=== PATIENT | female | born 1970 | race Caucasian/White ===

== ENCOUNTER 2022-02-25 15:24 | Outpatient (CLI) | payer OTHER, SELFPAY ==
[2022-02-25 14:21] LABS: Albumin* 4.4 g/dL (3.3-5.0)
[2022-02-25 14:22] LABS: Chloride* 105 mmol/L (96-114); Potassium* 4.4 mmol/L (3.6-5.1); Sodium* 139 mmol/L (135-149)
[2022-02-25 14:24] LABS: Bilirubin Total* 0.4 mg/dL (0.1-1.5); Carbon Dioxide* 24 mmol/L (20-32); Cholesterol* 158 mg/dL (90-199); Creatinine* 0.8 mg/dL (0.5-1.5); Estimated Glomerular Filt Rate 88 ml/min
[2022-02-25 14:25] LABS: Alanine Aminotransferase* 24 U/L (4-35); Alkaline Phosphatase* 92 U/L (40-150); Aspartate Amino Transferase* 25 U/L (12-35); Blood Urea Nitrogen* 16 mg/dL (7-30); Calcium* 9.2 mg/dL (8.4-10.6); Glucose* 98 mg/dL (60-115); HDL Cholesterol* 51 mg/dL (>=50); LDL Cholesterol Calculated 79 mg/dL (<100); Triglycerides* 141 mg/dL (40-149)
== END 2022-02-25 15:25 | disposition home or self-care (01) ==
PROVIDERS: Visit Provider Physician Assistant Medical
DX: E78.5 Hyperlipidemia, unspecified (principal)
CPT/HCPCS: 80053; 80061

== ENCOUNTER 2022-04-04 09:03 | Outpatient (CLI) | payer OTHER, SELFPAY | END 2022-04-04 09:04 | disposition home or self-care (01) | PROVIDERS: Visit Provider Family Medicine | DX: N39.0 Urinary tract infection, site not specified (principal) | CPT/HCPCS: 87086; 87186 ==

== ENCOUNTER 2022-05-31 02:31 | Emergency (ER) | payer OTHER, SELFPAY ==
[2022-05-31] VITALS (7 sets, daily range): BP systolic 145–155; BP diastolic 78–94; PULSE 52–81; RESP 16–22; TEMP 36.8; O2SAT 97–100; BMI 28.1
--- NOTE | 2022-05-31 02:50 | CRLHL7_ITS ---
Patient: NELLA VALLE Facility:?[facility] Patient ID:?[id number] Site Patient ID:?[id number]. Site :?[id number] Study:?CT-Chest/Abd/Pelvis W/ and W/O Cont dissection-05/31/2022 3:19:44 AM Ordering Physician:Eyal Juarez Final Report: INDICATION: Chest pain. Evaluate for dissection. COMPARISON: None available. TECHNIQUE: Initial examination is a noncontrast CT of the chest producing 3 millimeter thick axial sections. CT angiography of the chest, abdomen, and pelvis was performed with the uneventful intravenous administration of 95 cc of Isovue 370 while 1.5 mm thick axial sections were obtained from above the lungs through the pubic symphysis. Please note that all CT scans at this facility use dose modulation, iterative reconstruction, and/or weight-based dosing when appropriate to reduce radiation dose to as low as reasonably achievable. FINDINGS: : The thoracic aorta is normal in caliber with no sign of dilatation or dissection. There is no sign of periaortic hematoma. In the chest, there is a small calcified granuloma in the lateral right lower lobe. The lungs are otherwise clear. There is excellent enhancement of the pulmonary arteries with no sign of pulmonary embolism. There is no sign of mediastinal or hilar mass or adenopathy. There is no sign of supraclavicular or axillary mass or adenopathy. The heart is normal in appearance for the patient`s age. There is age appropriate appearance of the ascending great vessels. The abdominal aorta is normal in caliber with no sign of aneurysmal dilatation or dissection. The celiac axis, SMA, solitary bilateral renal arteries, and LAUREN are widely patent. There is no sign of periaortic hematoma. In the abdomen, the liver, spleen, pancreas, and adrenals are normal in appearance. The kidneys are normal in appearance. The gallbladder is normal in appearance. There is no sign of retroperitoneal mass or adenopathy. There is a small hiatal hernia. The rest of the stomach, loops of small bowel, and colon in the abdomen are otherwise normal in appearance. In the pelvis, the appendix is normal in appearance with no sign of inflammatory process. The loops of small bowel, colon, and rectum in the pelvis are normal in appearance. The uterus and adnexal regions are normal in appearance. The urinary bladder is normal in appearance. There is no sign of pelvic or inguinal mass or adenopathy. There is no sign of free fluid or free air in the abdomen or pelvis. The osseous structures are normal in appearance for the patient`s age. IMPRESSION: Normal CT angiogram of the thoracic and abdominal aorta. CT of the chest shows no sign of pulmonary embolism. Previous granulomatous disease. CT of the abdomen shows a small hiatal hernia. Normal CT of the pelvis with contrast. Please note that all CT scans at this facility use dose modulation, iterative reconstruction, and/or weight-based dosing when appropriate to reduce radiation dose to as low as reasonably achievable. For Patients: As a result of the Century Cures Act, medical imaging exams and procedure reports are released immediately into your electronic medical record. You may view this report before your referring provider. If you have questions, please contact your health care provider. This noncontrast CT of the chest is interpreted as part of the accompanying CT angiogram of the chest, abdomen, and pelvis. Please note that all CT scans at this facility use dose modulation, iterative reconstruction, and/or weight-based dosing when appropriate to reduce radiation dose to as low as reasonably achievable. Dictated by Byron Oglesby MD @ 05/31/2022 3:52:59 AM (Electronically Signed)
--- NOTE | 2022-05-31 02:58 | ED_ITS ---
HPI - General Adult General Date Seen: 05/31/22 Chief complaint: Shortness of Breath/Dyspnea Stated complaint: Hard time breathing/chest pain/vomitting Time Seen by Provider: 05/31/22 02:34 Source: patient and family Mode of arrival: ambulatory Limitations: no limitations History of Present Illness HPI narrative: Patient is a 51-year-old female who had a frozen pizza for dinner tonight. She went to sleep and awoke suddenly at 11:00 p.m. with pain in her epigastric area that radiates through into her back. She does not drink any alcohol. She did not have a sensation of acid reflux. Pain became so severe that she was having some trouble breathing. She tried Tums at home but vomited them up. She is still feeling nauseated. No hematemesis. No diarrhea. No one else at home has been ill. No fevers or chills. She has never had pain like this previously. Related Data Home Medications Medication Instructions Recorded Confirmed fruits and vegies supplement 2 tab PO DAILY 04/04/22 05/31/22 Previous Rx's Medication Instructions Recorded atorvastatin 20 mg tablet 20 mg PO QPM #90 tabs 02/26/22 topiramate 100 mg tablet 100 mg PO QDAY #90 tabs 03/12/22 triamcinolone acetonide 0.1 % 1 applic topical BID #30 grams 03/12/22 topical cream Allergies Allergy/AdvReac Type Severity Reaction Status Date / Time amoxicillin Allergy Intermediate Hives Verified 05/31/22 03:24 Review of Systems Narrative: Review of systems is outlined above otherwise noted to be negative. [facility] Medical History (Updated 05/31/22 @ 04:23 by Larry Bender MD) COVID-19 virus infection Depression Diarrhea Hyperlipidemia Left shoulder pain Obesity Prediabetes Vitamin D deficiency Surgical History No history of previous surgery Family History (Updated 03/07/22 @ 22:33 by Hailey Guzman) Father Diabetes Social History (Updated 03/07/22 @ 22:34 by Hailey Guzman) Narrative: Consumes alcohol occasionally Does not use illicit drugs Has 1 child- Daughter, Meaghan Nonsmoker Smoking Status: Never smoker Second hand tobacco smoke exposure: No How often do you have a drink containing alcohol: never How often do you have six or more drinks on one occasion: Never AUDIT-C Alcohol total score: 0 Non-prescribed substance use: denies use Exam Narrative: Exam Narrative: Vitals noted. HEENT: Conjunctiva clear. Neck is supple without adenopathy, thyromegaly, carotid bruit. Lungs: Clear to auscultation in all orozco. No wheezes, rales, rhonchi. Heart: Regular rate and rhythm without murmur. Abdomen: She has epigastric tenderness. No guarding, rigidity, rebound. Bowel sounds are normal. No palpable masses. Extremities: No cyanosis or edema. Good distal pulses. Skin: No abnormalities noted of the exposed skin. Neurologic: Awake, alert, fully oriented. Neurologic exam is nonfocal. Const: Vital Signs, click to edit/add: Vital Signs - 24 hr 05/31/22 03:04 05/31/22 02:40 05/31/22 03:01 Temperature 98.2 F Pulse Rate 81 Pulse Rate [Right Pulse Oximeter] 81 Respiratory Rate 22 18 Blood Pressure 149/84 H Blood Pressure [Le ft Upper Arm] 155/86 H Pulse Oximetry 99 100 Oxygen Delivery Me thod Room Air 05/31/22 03:21 Temperature Pulse Rate 59 L Pulse Rate [Right Pulse Oximeter] Respiratory Rate 18 Blood Pressure 149/94 H Blood Pressure [Le ft Upper Arm] Pulse Oximetry 100 Oxygen Delivery Me thod Course Course Hospital Course: Patient is seen and examined. She is initially in severe pain with diaphoresis. EKG shows normal sinus rhythm with a rate of 63. No acute ST or T-wave changes. A stat CT angiogram to rule out aortic dissection is ordered. Labs ordered. She is given fentanyl 50 mcg IV and Zofran 4 mg IV. She did have an episode of vomiting. Reevaluation(s) Reevaluation #1: She received little improvement with the fentanyl and was then given a GI cocktail with good improvement of her symptoms. She continues to have some nausea. Her labs are all unremarkable. Her imaging is also unremarkable. She is given a dose of Compazine 10 mg IV. Reevaluation #2: Patient is comfortable with discharge. Discussed the possibility of gallstones verses indigestion verses acid reflux. Vital Signs Vital signs: Initial Vital Signs Temperature 98.2 F 05/31/22 02:40 Temperature Source Temporal Artery Scan 05/31/22 02:40 Pulse Rate 81 05/31/22 02:40 Pulse Rhythm 05/31/22 02:40 Pulse Strength 3+ Normal 05/31/22 02:40 Respiratory Rate 22 05/31/22 02:40 Blood Pressure 155/86 H 05/31/22 02:40 Blood Pressure Mean 109 05/31/22 02:40 Blood Pressure Position Sitting 05/31/22 02:40 Pulse Oximetry 100 05/31/22 02:40 Oxygen Delivery Method 05/31/22 02:40 Vital Signs Temperature 98.2 F 05/31/22 02:40 Pulse Rate 81 05/31/22 02:40 Respiratory Rate 22 05/31/22 02:40 Blood Pressure 155/86 H 05/31/22 02:40 Pulse Oximetry 100 05/31/22 02:40 Oxygen Delivery Method 05/31/22 02:40 Temperature 98.2 F 05/31/22 02:40 Pulse Rate 59 L 05/31/22 03:21 Respiratory Rate 18 05/31/22 03:21 Blood Pressure 149/94 H 05/31/22 03:21 Pulse Oximetry 100 05/31/22 03:21 Oxygen Delivery Method 05/31/22 02:40 Medical Decision Making Lab Data Labs: Lab Results 05/31/22 05/31/22 05/31/22 Range/Units 02:35 02:35 02:35 WBC 9.77 (4.50-11.00) K/uL RBC 4.80 (4.00-5.20) m/uL Hgb 14.3 (12.0-16.0) gm/dL Hct 43.3 (33.0-51.0) % MCV 90 (80-100) fL MCH 30 (26-34) pg MCHC 33 (32-36) gm/dL RDW Coeff of Rand 11.6 (11.5-15.5) % Plt Count 276 (140-440) K/uL Neut % (Auto) 72.5 H (42.0-72.0) % Lymph % (Auto) 19.4 L (20-44) % [place] % (Auto) 6.8 (0.0-11.0) % Eos % (Auto) 0.8 (0.0-7.0) % Baso % (Auto) 0.4 (0.0-3.0) % Neut # (Auto) 7.10 H (1.7-7.0) K/uL Lymph # (Auto) 1.90 (0.90-2.90) K/uL [place] # (Auto) 0.70 (0.00-0.90) K/UL Eos # (Auto) 0.08 (0.00-0.50) K/uL Baso # (Auto) 0.04 (0.00-0.30) K/uL D-Dimer Quant (PE/DVT) 0.53 H (0.00-0.50) ug/ml Sodium 141 (135-149) mmol/L Potassium 3.8 (3.6-5.1) mmol/L Chloride 107 (96-114) mmol/L Carbon Dioxide 23 (20-32) mmol/L BUN 22 (7-30) mg/dL Creatinine 0.8 (0.5-1.5) mg/dL Estimated Creat Clear 82.04 Estimated GFR 88 ml/min Glucose 167 H (60-115) mg/dL Calcium 9.7 (8.4-10.6) mg/dL Total Bilirubin 0.4 (0.1-1.5) mg/dL Direct Bilirubin 0.2 (0.0-0.5) mg/dL AST 34 (12-35) U/L ALT 38 H (4-35) U/L Alkaline Phosphatase 112 (40-150) U/L Troponin I < 0.01 L (0.01-0.04) ng/mL Total Protein 7.7 (6.0-8.3) g/dL Albumin 4.7 (3.3-5.0) g/dL Lipase (23-300) U/L 05/31/22 Range/Units 02:35 WBC (4.50-11.00) K/uL RBC (4.00-5.20) m/uL Hgb (12.0-16.0) gm/dL Hct (33.0-51.0) % MCV (80-100) fL MCH (26-34) pg MCHC (32-36) gm/dL RDW Coeff of Rand (11.5-15.5) % Plt Count (140-440) K/uL Neut % (Auto) (42.0-72.0) % Lymph % (Auto) (20-44) % [place] % (Auto) (0.0-11.0) % Eos % (Auto) (0.0-7.0) % Baso % (Auto) (0.0-3.0) % Neut # (Auto) (1.7-7.0) K/uL Lymph # (Auto) (0.90-2.90) K/uL [place] # (Auto) (0.00-0.90) K/UL Eos # (Auto) (0.00-0.50) K/uL Baso # (Auto) (0.00-0.30) K/uL D-Dimer Quant (PE/DVT) (0.00-0.50) ug/ml Sodium (135-149) mmol/L Potassium (3.6-5.1) mmol/L Chloride (96-114) mmol/L Carbon Dioxide (20-32) mmol/L BUN (7-30) mg/dL Creatinine (0.5-1.5) mg/dL Estimated Creat Clear Estimated GFR ml/min Glucose (60-115) mg/dL Calcium (8.4-10.6) mg/dL Total Bilirubin (0.1-1.5) mg/dL Direct Bilirubin (0.0-0.5) mg/dL AST (12-35) U/L ALT (4-35) U/L Alkaline Phosphatase (40-150) U/L Troponin I (0.01-0.04) ng/mL Total Protein (6.0-8.3) g/dL Albumin (3.3-5.0) g/dL Lipase 171 (23-300) U/L Discharge Plan Discharge Clinical Impression: Acute epigastric pain Patient Disposition: Home, Self-Care Condition: Improved Additional Instructions: [place] diet, push fluids. Tylenol for pain. OTC Pepcid or Prilosec if you are having acid reflux. Follow-up with your PCP next week to discuss further testing such as a gallbladder ultrasound. Prescriptions: No Action fruits and vegies supplement 2 tab PO DAILY topiramate 100 mg tablet 100 mg PO QDAY Qty: 90 3RF triamcinolone acetonide 0.1 % cream 1 applic topical BID Qty: 30 0RF atorvastatin 20 mg tablet 20 mg PO QPM Qty: 90 3RF Follow Up/Referrals: Provider,Not a Local [Referring] - Blaine Sharp PA-C [Primary Care Provider] - Stand Alone Forms: MyHealth Info Instructions
[2022-05-31] MEDS: fentaNYL 100 MCG/2 ML inj 50 MCG IVP (03:00)
[2022-05-31] MEDS: ONDANSETRON 2 MG/ML inj 4 MG IVP (03:00)
[2022-05-31] MEDS: 0.9 % SODIUM CHLORIDE 1000 ml 1,000 ML IV (03:06)
[2022-05-31 03:11] LABS: Basophils Absolute Auto 0.04 K/uL (0.00-0.30); Basophils Percent Auto 0.4 % (0.0-3.0); Eosinophils Absolute Auto 0.08 K/uL (0.00-0.50); Eosinophils Percent Auto 0.8 % (0.0-7.0); Hematocrit 43.3 % (33.0-51.0); Hemoglobin* 14.3 gm/dL (12.0-16.0); Immature Granulocytes Abs Auto 0.01 K/uL (0.00-0.30); Immature Granulocytes Pct Auto 0.1 %; Lymphocytes Percent Auto 19.4 % (20-44); Mean Corpuscular HGB Conc 33 gm/dL (32-36); Mean Corpuscular Hemoglobin 30 pg (26-34); Mean Corpuscular Volume 90 fL (80-100); Monocytes Percent Auto 6.8 % (0.0-11.0); Neutrophils Percent Auto 72.5 % (42.0-72.0); Platelet Count* 276 K/uL (140-440); RDW Coefficient of Variation % 11.6 % (11.5-15.5); White Blood Count* 9.77 K/uL (4.50-11.00)
[2022-05-31 03:13] LABS: Slide Review Reflex No
[2022-05-31 03:17] LABS: Albumin* 4.7 g/dL (3.3-5.0); Chloride* 107 mmol/L (96-114)
[2022-05-31 03:18] LABS: Potassium* 3.8 mmol/L (3.6-5.1); Sodium* 141 mmol/L (135-149)
[2022-05-31 03:19] LABS: Lipase* 171 U/L (23-300)
[2022-05-31 03:20] LABS: Alkaline Phosphatase* 112 U/L (40-150); Aspartate Amino Transferase* 34 U/L (12-35); Bilirubin Direct* 0.2 mg/dL (0.0-0.5); Bilirubin Total* 0.4 mg/dL (0.1-1.5); Blood Urea Nitrogen* 22 mg/dL (7-30); Carbon Dioxide* 23 mmol/L (20-32); Creatinine* 0.8 mg/dL (0.5-1.5); Est. Creatinine Clearance* 82.04; Estimated Glomerular Filt Rate 88 ml/min; Total Protein* 7.7 g/dL (6.0-8.3)
[2022-05-31] MEDS: GI COCKTAIL (VISC LIDO/ANTACID) 30 ML PO (03:20)
[2022-05-31 03:21] LABS: Alanine Aminotransferase* 38 U/L (4-35); Calcium* 9.7 mg/dL (8.4-10.6); Glucose* 167 mg/dL (60-115)
[2022-05-31 03:22] LABS: D Dimer Quantitative* 0.53 ug/ml (0.00-0.50)
[2022-05-31 03:33] LABS: Troponin I* < 0.01 ng/mL (0.01-0.04)
[2022-05-31] MEDS: PROCHLORPERAZINE 5 MG/ML VIAL 10 MG IV (04:25)
== END 2022-05-31 04:39 | disposition home or self-care (01) ==
PROVIDERS: Emergency Provider Family Medicine; PCP Physician Assistant Medical
DX: R10.13 Epigastric pain (principal)
CPT/HCPCS: 36415; 71270; 74178; 80048; 80076; 83690; 84484; 85025; 85379; 93005; 94761; 96374; 96375; 99284; 99285; A9270; J0780; J2405; J3010; J7030; Q9967

== ENCOUNTER 2023-01-06 10:14 | Outpatient (CLI) | payer OTHER, SELFPAY ==
--- NOTE | 2023-01-06 10:45 | CRLHL7_ITS ---
For Patients: As a result of the Cures Act, medical imaging exams and procedure reports are released immediately into your electronic medical record. You may view this report before your referring provider. If you have questions, please contact your health care provider. DIGITAL DIAGNOSTIC LEFT MAMMOGRAM USING TOMOSYNTHESIS AND COMPUTER-AIDED DETECTION LEFT BREAST ULTRASOUND CLINICAL HISTORY: LEFT breast pain. COMPARISON: 10/30/2021, 11/05/2022. TECHNIQUE: Digital LEFT mammogram in four projections. Tomosynthesis and CAD utilized. Real-time ultrasound imaging of LEFT breast with imaging documentation. Scanning was performed by both the technologist and the radiologist. BREAST COMPOSITION: The breasts are heterogeneously dense, which may obscure small masses. FINDINGS: 3D CC/MLO LEFT mammogram images submitted. No suspicious masses or architectural distortion. No adenopathy or suspicious calcifications. Targeted sonogram LEFT breast performed in the area of concern 5-6 o`clock 2 cm from the nipple. Normal dense tissue is present. No fibrocystic change or solid mass. IMPRESSION: Normal LEFT breast mammogram images and normal targeted LEFT breast ultrasound. No evidence of malignancy. RECOMMENDATIONS: Annual BILATERAL screening mammography. Results and recommendations discussed with the patient. BI-RADS Category 2: Benign A lay language report of this examination will be provided to the patient. Dictated by Larry Clayton MD @ 01/06/2023 11:59:02 AM /Dictated by: Larry Clayton MD @ 01/06/2023 11:54:00 AM (Electronically Signed)
--- NOTE | 2023-01-06 11:15 | CRLHL7_ITS ---
For Patients: As a result of the Century Cures Act, medical imaging exams and procedure reports are released immediately into your electronic medical record. You may view this report before your referring provider. If you have questions, please contact your health care provider. PLEASE SEE LEFT DIAGNOSTIC MAMMOGRAM OF SAME DAY FOR COMBINED REPORT. CRL:[email or web address] RD/Dictated by: Larry Clayton MD @ 01/06/2023 11:55:00 AM (Electronically Signed)
== END 2023-01-06 10:15 | disposition home or self-care (01) ==
LOC: MAMMO 10:15
PROVIDERS: PCP Physician Assistant Medical; Visit Provider Physician Assistant
DX: N64.4 Mastodynia (principal)
CPT/HCPCS: 76642; 77065; G0279

== ENCOUNTER 2023-02-24 04:26 | Emergency (ER) | payer OTHER, SELFPAY ==
[2023-02-24 04:31] VITALS: BP 123/96; PULSE 64; RESP 22; TEMP 36.2; O2SAT 100
[2023-02-24] MEDS: ONDANSETRON ODT 4 MG TAB PO (04:35)
--- NOTE | 2023-02-24 04:37 | ED.GENADULT ---
HPI - General Adult General Chief complaint: Abdominal Pain Stated complaint: Trouble breathing Time Seen by Provider: 02/24/23 04:36 History of Present Illness HPI narrative: pt with upper abd and lower chest pain. rated 8/10 for pain. discomfort started 2300, . pt given two tums at 0100, zantac at 0345. 52-year-old woman presenting to the emergency department with complaint of upper abdominal pain. Around 5 hours ago ate a pudding cup and then shortly after that ?all hell broke loose?. Pain in the epigastrium and vomiting. No fever or chills. No hematemesis. No diarrhea. She did try some Tums and Zantac. Apparently is not prone to heartburn. Was seen here in May of this last year with similar symptoms resolved with pain medication antiemetics fluids and a GI cocktail. Episode appears to been triggered by eating a pizza. Had been recommended for a follow-up with ultrasound imaging to further evaluate gallbladder. CT imaging of abdomen pelvis was reportedly negative at that time. Related Data Previous Rx's Medication Instructions Recorded omeprazole 20 mg capsule,delayed 20 mg PO BID #60 caps 02/24/23 release Allergies Allergy/AdvReac Type Severity Reaction Status Date / Time amoxicillin Allergy Intermediate Hives Verified 12/30/22 08:00 Review of Systems Status of ROS: Reports: 6 or more systems reviewed and unremarkable except as noted in History and below [facility] Medical History Rash ?R21 - Rash and other nonspecific skin eruption (ICD-10) Surgical History No history of previous surgery Family History Father Diabetes Aunt Ovarian cancer Social History Narrative: Consumes alcohol occasionally Does not use illicit drugs Has 1 child- Daughter, Meaghan Nonsmoker Smoking Status: Never smoker Second hand tobacco smoke exposure: No How often do you have a drink containing alcohol: never How often do you have six or more drinks on one occasion: Never AUDIT-C Alcohol total score: 0 Non-prescribed substance use: denies use Little interest or pleasure in doing things: not at all Feeling down, depressed, or hopeless: not at all Exam Narrative: Exam Narrative: Pleasant. Seems quite uncomfortable. Has emesis bag with about 100 mL of yellowish liquid in it. She sitting on the bed hunched over. Nursing attempting to place a line is I enter the room. I request an ODT Zofran in the meantime. She is breathing easily. Skin is warm and dry. She is well-perfused peripherally without edema. Abdomen with normoactive bowel sounds is soft and moderately tender to palpation directly in the epigastrium. She is mildly tender in the right upper quadrant but without clear Grimm's. Heart is in a regular rate and rhythm. Lungs are clear. Const: Vital Signs, click to edit/add: Vital Signs - 24 hr 02/24/23 04:31 02/24/23 05:41 02/24/23 07:35 Temperature 97.2 F L Pulse Rate [Left P ulse Oximeter] 64 64 59 L Respiratory Rate 18 18 Blood Pressure [Ri ght Upper Arm] 123/96 H 147/84 H Pulse Oximetry 100 100 96 Oxygen Delivery Me thod Room Air Room Air Room Air 02/24/23 08:31 Temperature Pulse Rate [Left P ulse Oximeter] 61 Respiratory Rate Blood Pressure [Ri ght Upper Arm] 152/83 H Pulse Oximetry 95 Oxygen Delivery Me thod Room Air Documenting provider has reviewed patient's vital signs: yes Course Vital Signs Vital signs: Initial Vital Signs Temperature 97.2 F L 02/24/23 04:31 Temperature Source Temporal Artery Scan 02/24/23 04:31 Pulse Rate 64 02/24/23 04:31 Pulse Rhythm Regular 02/24/23 04:31 Respiratory Rate 22 02/24/23 04:31 Blood Pressure 123/96 H 02/24/23 04:31 Blood Pressure Mean 105 02/24/23 04:31 Blood Pressure Position Sitting 02/24/23 04:31 Pulse Oximetry 100 02/24/23 04:31 Oxygen Delivery Method Room Air 02/24/23 04:31 Vital Signs Temperature 97.2 F L 02/24/23 04:31 Pulse Rate 64 02/24/23 04:31 Respiratory Rate 22 02/24/23 04:31 Blood Pressure 123/96 H 02/24/23 04:31 Pulse Oximetry 100 02/24/23 04:31 Oxygen Delivery Method Room Air 02/24/23 04:31 Temperature 97.2 F L 02/24/23 04:31 Pulse Rate 61 02/24/23 08:31 Respiratory Rate 18 02/24/23 07:35 Blood Pressure 152/83 H 02/24/23 08:31 Pulse Oximetry 95 02/24/23 08:31 Oxygen Delivery Method Room Air 02/24/23 08:31 Medical Decision Making MDM Narrative Medical decision making narrative: Apparently improved with GI cocktail last time and pain medications. We can repeat the same. Would have concern about gallbladder disease. Later this morning ultrasonographers will be present. Check labs 1st. Try to make her comfortable. Differential still includes cardiovascular but given reproducibility of her pain and familiarity I think more likely gallbladder disease or dyspepsia with possibly spasm. IV is established. Given L normal saline along with 4 mg of morphine, with persistent nausea given prochlorperazine as was apparently effective last time, GI cocktail. Labs are reviewed. White counts normal. Transaminases negative. Troponin and lipase also negative. On reassessment appears to be more comfortable though rather tired. Difficult to assess how much pain she is having. Sounds as though has about 50% of the pain that she came with and this is tolerable. Ultrasound performed showing cholelithiasis and a common bile duct at 8 mm. This stones are noted to be mobile. No edematous wall or pericholecystic fluid. I discussed these findings with our on-call surgeon. Is anticipating need for surgery but recommending outpatient follow-up at this time. Concern also of reflux symptoms. And recommendations are to continue proton pump inhibitor. Given PPI in form of omeprazole here in the ER. See patient discharge plan Lab Data Lab results reviewed: Yes I reviewed the patient's lab results Labs: Lab Results 02/24/23 Range/Units 05:00 WBC 10.29 (4.50-11.00) K/uL RBC 4.77 (4.00-5.20) m/uL Hgb 14.6 (12.0-16.0) gm/dL Hct 43.1 (33.0-51.0) % MCV 90 (80-100) fL MCH 31 (26-34) pg MCHC 34 (32-36) gm/dL RDW Coeff of Rand 12.2 (11.5-15.5) % Plt Count 338 (140-440) K/uL Neut % (Auto) 83.0 H (42.0-72.0) % Lymph % (Auto) 12.2 L (20-44) % [place] % (Auto) 3.7 (0.0-11.0) % Eos % (Auto) 0.4 (0.0-7.0) % Baso % (Auto) 0.3 (0.0-3.0) % Neut # (Auto) 8.50 H (1.7-7.0) K/uL Lymph # (Auto) 1.30 (0.90-2.90) K/uL [place] # (Auto) 0.40 (0.00-0.90) K/UL Eos # (Auto) 0.04 (0.00-0.50) K/uL Baso # (Auto) 0.03 (0.00-0.30) K/uL Abs Immat Gran (auto) 0.04 (0.00-0.30) K/uL Imm/Tot Granulo (auto) 0.4 % Sodium 137 (135-149) mmol/L Potassium 3.6 (3.6-5.1) mmol/L Chloride 104 (96-114) mmol/L Carbon Dioxide 19 L (20-32) mmol/L Anion Gap 14 (7-15) mEq/L BUN 14 (7-30) mg/dL Creatinine 0.7 (0.5-1.5) mg/dL Estimated GFR 103 ml/min Glucose 159 H (60-115) mg/dL Calcium 10.1 (8.4-10.6) mg/dL Total Bilirubin 0.6 (0.1-1.5) mg/dL Direct Bilirubin 0.1 (0.0-0.5) mg/dL AST 33 (12-35) U/L ALT 33 (4-35) U/L Alkaline Phosphatase 104 (40-150) U/L Troponin I < 0.01 L (0.01-0.04) ng/mL NT-Pro-B Natriuret Pep 103 pg/mL Total Protein 8.1 (6.0-8.3) g/dL Albumin 4.7 (3.3-5.0) g/dL Lipase 95 (23-300) U/L Discharge Plan Discharge Clinical Impression: Vomiting, Acute epigastric pain, Dehydration, Cholelithiasis Patient Disposition: Home w/ Parent or Adult Condition: Improved Additional Instructions: I think a lower-fat diet since you do have some potential issue with your gallbladder would be indicated. In the short term I would have a national account director diet over next 36 hours or so. Diluted juices, soup broth, crackers, toast, rice. Return for persistent increase in pain, intractable vomiting, associated fever. Percocet and Zofran from [facility]. Omeprazole will be waiting for you at the pharmacy. While it may make you tired, you can take a couple Percocet when you get home. Can follow-up with Dr. Moss as scheduled below or return sooner as needed as indicated above. Follow up appointment is scheduled at the [facility] on 03/06 with a 2:45pm appointment time. Please arrive at 2:30pm to complete any paperwork. If you have any questions or need to reschedule, please call [phone]. [facility] [address] [place] [address] Prescriptions: New omeprazole 20 mg capsule,delayed release(DR/EC) 20 mg PO BID Qty: 60 2RF Follow Up/Referrals: Blaine Sharp PA-C [Primary Care Provider] - Stand Alone Forms: [facility] Info Instructions
[2023-02-24] MEDS: 0.9 % SODIUM CHLORIDE 1000 ml 1,000 ML IV (04:50)
[2023-02-24 05:13] LABS: Basophils Absolute Auto 0.03 K/uL (0.00-0.30); Basophils Percent Auto 0.3 % (0.0-3.0); Eosinophils Absolute Auto 0.04 K/uL (0.00-0.50); Eosinophils Percent Auto 0.4 % (0.0-7.0); Hematocrit 43.1 % (33.0-51.0); Hemoglobin* 14.6 gm/dL (12.0-16.0); Immature Granulocytes Abs Auto 0.04 K/uL (0.00-0.30); Immature Granulocytes Pct Auto 0.4 %; Lymphocytes Percent Auto 12.2 % (20-44); Mean Corpuscular HGB Conc 34 gm/dL (32-36); Mean Corpuscular Hemoglobin 31 pg (26-34); Mean Corpuscular Volume 90 fL (80-100); Monocytes Percent Auto 3.7 % (0.0-11.0); Platelet Count* 338 K/uL (140-440); RDW Coefficient of Variation % 12.2 % (11.5-15.5); Red Blood Count 4.77 m/uL (4.00-5.20); Slide Review Reflex No; White Blood Count* 10.29 K/uL (4.50-11.00)
[2023-02-24] MEDS: MORPHINE 4 MG/ML INJ IVP (05:17)
[2023-02-24] MEDS: PROCHLORPERAZINE 5 MG/ML VIAL 10 MG IV (05:17)
[2023-02-24 05:20] LABS: Albumin* 4.7 g/dL (3.3-5.0); Chloride* 104 mmol/L (96-114)
[2023-02-24 05:21] LABS: Potassium* 3.6 mmol/L (3.6-5.1); Sodium* 137 mmol/L (135-149)
[2023-02-24 05:23] LABS: Alkaline Phosphatase* 104 U/L (40-150); Anion Gap 14 mEq/L (7-15); Aspartate Amino Transferase* 33 U/L (12-35); Bilirubin Direct* 0.1 mg/dL (0.0-0.5); Bilirubin Total* 0.6 mg/dL (0.1-1.5); Blood Urea Nitrogen* 14 mg/dL (7-30); Carbon Dioxide* 19 mmol/L (20-32); Creatinine* 0.7 mg/dL (0.5-1.5); Estimated Glomerular Filt Rate 103 ml/min; Glucose* 159 mg/dL (60-115); Lipase* 95 U/L (23-300); Total Protein* 8.1 g/dL (6.0-8.3)
[2023-02-24 05:24] LABS: Alanine Aminotransferase* 33 U/L (4-35); Calcium* 10.1 mg/dL (8.4-10.6)
[2023-02-24 05:33] LABS: NT Pro B Type NatriureticPept* 103 pg/mL
[2023-02-24 05:36] LABS: Troponin I* < 0.01 ng/mL (0.01-0.04)
[2023-02-24] MEDS: lidocaine HCL 4 % TOP SOLN 50 ML BOTTLE 7.5 ML PO (05:40)
[2023-02-24] MEDS: MAG HYDROX/ALUMINUM HYD/SIMETH 30 ML ORAL.SUSP PO (05:40)
[2023-02-24 05:41] VITALS: PULSE 64; RESP 18; O2SAT 100
--- NOTE | 2023-02-24 06:43 | CRLHL7_ITS ---
For Patients: As a result of the Century Cures Act, medical imaging exams and procedure reports are released immediately into your electronic medical record. You may view this report before your referring provider. If you have questions, please contact your health care provider. Indication: Epigastric pain Technique: Sonography of the abdomen was performed limited to the structures discussed below Comparison: There are no prior ultrasounds available for comparison Findings: The liver is normal in size and echogenicity without focal mass or biliary ductal dilation. Numerous multiple mobile stones are identified within the gallbladder. Gallbladder wall thickness is normal at 3 millimeters. No intramural edema identified. No pericholecystic fluid. No sonographic Grimm sign. The common duct is mildly prominent at 8 millimeters. Generally, in a patient of this age the duct is not greater than 6 millimeters. Pancreas as partially visualized appeared normal. The duct measured 3 millimeters which is top-normal The right kidney is unremarkable in size and appearance measuring 10.8 x 3.5 x 5.1 centimeters. Aorta and cava as visualized appears normal Impression: There is cholelithiasis but there is no evidence of acute cholecystitis. Mildly prominent extrahepatic ductal system is noted. While nonspecific, this could be due to a distal obstructing process such as distal choledocholithiasis. Dictated by Robson Ladd MD @ 02/24/2023 7:50:55 AM (Electronically Signed)
[2023-02-24 07:35] VITALS: BP 147/84; PULSE 59; RESP 18; O2SAT 96
--- NOTE | 2023-02-24 07:36 | ED.NURSE ---
care taken over, pt back from us.
[2023-02-24 08:31] VITALS: BP 152/83; PULSE 61; O2SAT 95
[2023-02-24] MEDS: OMEPRAZOLE 20 MG CAPSULE DR PO (09:08)
--- NOTE | 2023-02-24 09:12 | PM.GSCN ---
History of Present Illness Consult details Date Seen: 02/24/23 Consult date: 02/24/23 Narrative: Patient is an otherwise healthy 52 yo F, who presented to the ED with complaints of epigastric abdominal pain. She states that last night she had a pudding cup for a snack and shortly after experienced epiastric pain. She describes the pain as a burning sensation that went up her chest and left a bad taste in the back of her mouth. She initially tried TUMS and Zantac at night, but threw them up after taking. She denies any radiation of pain to her right side or back. No reported sensitivity or pain with eating. 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 In the ED she was given a GI cocktail, which improved the pain. She has had a previous episode similar to this about 8 months earlier, which also brought her into the ED and also improved with an acid duplicating machine operator. She has never had abdominal surgery before. No history of diabetes and non smoker. Review of Systems Status of ROS: Reports: 6 or more systems reviewed and unremarkable except as noted in History and below [facility] Medical History Rash ?R21 - Rash and other nonspecific skin eruption (ICD-10) Surgical History No history of previous surgery Family History Father Diabetes Aunt Ovarian cancer Social History Narrative: Consumes alcohol occasionally Does not use illicit drugs Has 1 child- Daughter, Meaghan Nonsmoker Smoking Status: Never smoker Second hand tobacco smoke exposure: No How often do you have a drink containing alcohol: never How often do you have six or more drinks on one occasion: Never AUDIT-C Alcohol total score: 0 Non-prescribed substance use: denies use Little interest or pleasure in doing things: not at all Feeling down, depressed, or hopeless: not at all Meds Home Medications and Allergies Allergies Allergy/AdvReac Type Severity Reaction Status Date / Time amoxicillin Allergy Intermediate Hives Verified 12/30/22 08:00 Exam Narrative: Exam Narrative: Gen: Patient lying in bed, NAD Resp: equal breath rise and maintained on RA CV: RRR, well perfused Abd: soft. nontender and non distended. Const: Vital Signs, click to edit/add: Vital Signs - 24 hr 02/24/23 04:31 02/24/23 05:41 02/24/23 07:35 Temperature 97.2 F L Pulse Rate [Left P ulse Oximeter] 64 64 59 L Respiratory Rate 22 18 18 Blood Pressure [Ri ght Upper Arm] 123/96 H 147/84 H Pulse Oximetry 100 100 96 Oxygen Delivery Me thod Room Air Room Air Room Air 02/24/23 08:31 Temperature Pulse Rate [Left P ulse Oximeter] 61 Respiratory Rate Blood Pressure [Ri ght Upper Arm] 152/83 H Pulse Oximetry 95 Oxygen Delivery Me thod Room Air Results Labs Labs: Abnormal lab results 02/24/23 Range/Units 05:00 Neut % (Auto) 83.0 H (42.0-72.0) % Lymph % (Auto) 12.2 L (20-44) % Neut # (Auto) 8.50 H (1.7-7.0) K/uL Carbon Dioxide 19 L (20-32) mmol/L Glucose 159 H (60-115) mg/dL Troponin I < 0.01 L (0.01-0.04) ng/mL Diabetes panel 02/24/23 Range/Units 05:00 Sodium 137 (135-149) mmol/L Potassium 3.6 (3.6-5.1) mmol/L Chloride 104 (96-114) mmol/L Carbon Dioxide 19 L (20-32) mmol/L BUN 14 (7-30) mg/dL Creatinine 0.7 (0.5-1.5) mg/dL Glucose 159 H (60-115) mg/dL Calcium 10.1 (8.4-10.6) mg/dL AST 33 (12-35) U/L ALT 33 (4-35) U/L Alkaline Phosphatase 104 (40-150) U/L Total Protein 8.1 (6.0-8.3) g/dL Albumin 4.7 (3.3-5.0) g/dL Calcium panel 02/24/23 Range/Units 05:00 Calcium 10.1 (8.4-10.6) mg/dL Albumin 4.7 (3.3-5.0) g/dL Pituitary panel 02/24/23 Range/Units 05:00 Sodium 137 (135-149) mmol/L Potassium 3.6 (3.6-5.1) mmol/L Chloride 104 (96-114) mmol/L Carbon Dioxide 19 L (20-32) mmol/L BUN 14 (7-30) mg/dL Creatinine 0.7 (0.5-1.5) mg/dL Glucose 159 H (60-115) mg/dL Calcium 10.1 (8.4-10.6) mg/dL Adrenal panel 02/24/23 Range/Units 05:00 Sodium 137 (135-149) mmol/L Potassium 3.6 (3.6-5.1) mmol/L Chloride 104 (96-114) mmol/L Carbon Dioxide 19 L (20-32) mmol/L BUN 14 (7-30) mg/dL Creatinine 0.7 (0.5-1.5) mg/dL Glucose 159 H (60-115) mg/dL Calcium 10.1 (8.4-10.6) mg/dL Total Bilirubin 0.6 (0.1-1.5) mg/dL AST 33 (12-35) U/L ALT 33 (4-35) U/L Alkaline Phosphatase 104 (40-150) U/L Total Protein 8.1 (6.0-8.3) g/dL Albumin 4.7 (3.3-5.0) g/dL All other labs normal. Imaging Abdominal ultrasound report/results: report reviewed and image reviewed Assessment and Plan Assessment and plan (1) Cholelithiasis: Status: Acute (2) Acid reflux: Status: Acute Plan Patient is a healthy 52 yo F with current history and clinical symptoms consistent with acid reflux. Biliary colic/cholecystitis is less likely at this time with patient noting improvement with acid reducing medication. She does have evidence of cholelithiasis on US imaging, but no pericholecystic fluid or gallbladder wall thickening. Mild dilation of CBD (8mm), but LFTs within normal limits making me not suspicious at this time for a distal obstruction. Recommend a trial of Omeprazole 20 mg BID and short interval follow up with myself in clinic (03/06). Patient was given my clinic number and instructed to call with any persistent pain, worsening pain or acute change in symptoms. Would also recommend a bland diet.
== END 2023-02-24 09:19 | disposition home or self-care (01) ==
PROVIDERS: Emergency Provider Family Medicine; PCP Physician Assistant Medical
DX: R10.13 Epigastric pain (principal); R11.10 Vomiting, unspecified; E86.0 Dehydration; K80.20 Calculus of gallbladder without cholecystitis without obstruction
CPT/HCPCS: 36415; 76705; 80048; 80076; 83690; 83880; 84484; 85025; 96361; 96374; 99284; A9270; J0780; J2270; J7030

== ENCOUNTER 2023-03-06 07:43 | Day surgery (SDC) | payer OTHER, SELFPAY ==
[2023-03-06] VITALS (24 sets, daily range): BP systolic 107–147; BP diastolic 58–117; PULSE 79–107; RESP 16–20; TEMP 36.2–37.1; O2SAT 92–97; BMI 29.8
--- OUTSIDE RECORDS SUMMARY | 2023-03-06 07:45 | XMS_ITS | Patient Health Record ---
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 Name Role Phone None, No PCP Primary Care Provider Rebeca Rosales Unavailable [phone] ALLERGIES Allergen (clinical drug ingredient) Drug/Non Drug Allergy documented on EMR Reaction Allergy Type Onset Date Status amoxicillin Amoxicillin hives Drug Allergy Act keith RESULTS Component Value Reference Range Notes ESTRADIOL Reviewed date:01/29/2023 07:39:04 PM Interpretation: Performing Lab:[facility]-[address], Pow[employer] [id number] Omar Wade Notes/Report: ESTRADIOL 69 Reference Range Follicular Phase: 19-144 Mid-Cycle: 64-357 Luteal Phase: 56-214 Postmenopausal: < or = 31 Reference range established on post-pubertal patient population. No pre-pubertal reference range established using this assay. For any patients for whom low Estradiol levels are anticipated (e.g. males, pre-pubertal children and hypogonadal/post-menopausal females), the [facility] Estradiol, Ultrasensitive, LCMSMS assay is recommended (order code 04544). Please note: patients being treated with the drug fulvestrant (Faslodex(R)) have demonstrated significant interference in immunoassay methods for estradiol measurement. The cross reactivity could lead to falsely elevated estradiol test results leading to an inappropriate clinical assessment of estrogen status. [facility] order code [id number]-[id number], Ultrasensitive LC/MS/MS demonstrates negligible cross reactivity with fulvestrant. DHEA SULFATE Reviewed date:01/29/2023 07:39:04 PM Interpretation: Performing Lab:[facility] [place]-[address] [employer], Pow[employer] [id number] Omar Wade Notes/Report: DHEA SULFATE 95 5-167 mcg/dL DHEA-S values fall with advancing age. For reference, the reference intervals for 31-40 year old patients are: Male: 93-415 mcg/dL Female: 19-237 mcg/dL FSH Reviewed date:01/29/2023 07:39:04 PM Interpretation: Performing Lab:[facility]-[place] [address], Maykel [id number] Omar Wade Notes/Report: FSH 35.1 Reference Range Follicular Phase 2.5-10.2 Mid-cycle Peak 3.1-17.7 Luteal Phase 1.5- 9.1 Postmenopausal 23.0-116.3 LH Reviewed date:01/29/2023 07:39:04 PM Interpretation: Performing Lab:Deandre [place] [email or web address] [address], [place] IrapLB[address] Omar Wade Notes/Report: LH 27.0 Reference Range Follicular Phase 1.9-12.5 Mid-Cycle Peak 8.7-76.3 Luteal Phase 0.5-16.9 Postmenopausal 10.0-54.7 PROLACTIN Reviewed date:01/29/2023 07:39:04 PM Interpretation: Performing Lab:[email or web address] [address], [employer] [id number] Omar Wade Notes/Report: PROLACTIN 7.4 Reference Range Females Non- 3.0-30.0 10.0-209.0 Postmenopausal 2.0-20.0 CORTISOL, TOTAL Reviewed date:01/29/2023 07:39:04 PM Interpretation: Performing Lab:[facility]IE [facility]-[place] [address], [place] [employer].YpifXP[address] Omar Wade Notes/Report: CORTISOL, TOTAL 5.3 Reference Range: For 8 a.m.(7-9 a.m.) Specimen: 4.0-22.0 Reference Range: For 4 p.m.(3-5 p.m.) Specimen: 3.0-17.0 * Please interpret above results accordingly * TSH Reviewed date:01/29/2023 07:39:04 PM Interpretation: Performing Lab:[facility]IE [email or web address] [address], [place] [id number] Omar Wade Notes/Report: TSH 3.19 Reference Range > or = 20 Years 0.40-4.50 Ranges First trimester 0.26-2.66 Second trimester 0.55-2.73 Third trimester 0.43-2.91 VITAMIN D,25-OH,TOTAL,IA Reviewed date:01/29/2023 07:39:04 PM Interpretation: Performing Lab:[facility]IE [email or web address] [address] [employer], [facility] HospitalNilvAR[address] Omar Wade Notes/Report: VITAMIN D,25-OH,TOTAL,IA 38 30-100 ng/mL Vitamin D Status 25-OH Vitamin D: Deficiency: <20 ng/mL Insufficiency: 20 - 29 ng/mL Optimal: > or = 30 ng/mL For 25-OH Vitamin D testing on patients on D2-supplementation and patients for whom quantitation of D2 and D3 fractions is required, the QuestAssureD(TM) 25-OH VIT D, (D2,D3), LC/MS/MS is recommended: order code [id number] (patients >2yrs). See Note 1 Note 1 For additional information, please refer to http://[employer]/faq/VMD118 (This link is being provided for informational/ educational purposes only.) SEX HORMONE BINDING GLOBULIN Reviewed date:01/29/2023 07:39:04 PM Interpretation: Performing Lab:[email or web address] [address]Auth[address], [place] [id number] Omar Wade Notes/Report: SEX HORMONE BINDING GLOBULIN 68 17-124 nmol/ L TESTOSTERONE, TOTAL, LC/MS/M S Reviewed date:01/29/2023 07:39:04 PM Interpretation: Performing Lab:Z3E, [facility]-[address] [address], [address], KqnihqgewsDK[address] Meliton Mar MD Notes/Report: TESTOSTERONE, TOTAL, MS 22 2-45 ng/dL For additional information, please refer to [email or web address].iSell.com/faq/TotalTestosteroneLCMSMS (This link is being provided for informational/educational purposes only.) (Note) This test was developed and its analytical performance characteristics have been determined by [employer]. It has not been cleared or approved by the FDA. This assay has been validated pursuant to the CLIA regulations and is used for clinical purposes. [facility] [employer]inite[employer] fusion [address] [address],[address] [place] [id number] Meliton Mar MD TESTOSTERONE, FREE Reviewed date:01/29/2023 07:39:04 PM Interpretation: Performing Lab:Jose JohnFusion-AzbItlars[address] [address], [address], UxpiaggscrBP[address] Meliton Mar MD Notes/Report: TESTOSTERONE, FREE 1.6 0.2-5.0 pg/mL (Note) The concentration of free testosterone is derived from a mathematical model using total testosterone by LCMSMS, sex hormone binding globulin and albumin. This test was developed and its analytical performance characteristics have been determined by [facility]. It has not been cleared or approved by the FDA. This assay has been validated pursuant to the CLIA regulations and is used for clinical purposes. [facility] [address] [address],[address] [facility] [address] Meliton Mar MD REASON FOR REFERRAL No Information MEDICATIONS Medication SIG (Take, Route, Fr equency, Duration) Notes Start Date End Date Status Progesterone 200 MG 1 capsule at bedtime Orally Once a day for 90 days 01/29/2023 Active SOCIAL HISTORY Tobacco Use: Social History Observation Description Date Details (start date - stop date) Never Smoker NA - NA Sex Assigned At : Social History Observation Description Sex Assigned At Unknown Tobacco Use/Smoking Question Answer Notes Are you a nonsmoker Alcohol Screen (Audit-C) Question Answer Notes Did you have a drink contain ing alcohol in the past year? Yes How often did you have a dri nk containing alcohol in the past year? 2 to 4 times a month (2 points) How many drinks did you have on a typical day when you were drinking in the past year? 1 or 2 drinks (0 point) How often did you have 6 or more drinks on one occasion in the past year? Never (0 point) Points 2 Interpretation Negative PROBLEMS Problem Type ICD Code Onset Dates Problem Status W/U Status Risk SNOMED Code Notes Problem Unspecified menopausal and perimenopausal disorder (N95.9) Active confirmed Menopausal and postmenopausal disorders (359891971) Problem Menopausal and perimenopausal disorder (N95.9) Active confirmed Menopausal and postmenopausal disorders (942277629) Problem Climacteric (N95.1) Active confirmed Menopause (358535480) Problem Menopausal disorder (N95.9) Active confirmed Menopausal and postmenopausal disorders (739769506) VITAL SIGNS Blood pressure diastolic 78 mm Hg 01/28/2023 Height 68 in 01/28/2023 Blood pressure systolic 116 mm Hg 01/28/2023 Weight 195 lbs 01/28/2023 BMI 29.65 kg/m2 01/28/2023 Encounters Encounter Location Date Provider Diagnosis [facility] [address] [facility] [place] [place] [address] 01/21/2023 [facility] [address] [facility] [place] [place] [address] 02/28/2023 [facility] Climacteric N95.1 [facility] [address] [facility] [place] [place] [address] 01/21/2023 [facility] Menopausal and perimenopausal disorder N95.9 [facility] [address] [address] [facility] [place] [address] 01/21/2023 [facility] Menopausal disorder N95.9 [facility] [address] [facility] [place] [address] 01/28/2023 [facility] Menopausal and perimenopausal disorder N95.9 [facility] [address] [facility] [place] [place] [address] 01/29/2023 [facility] Encounter for pre-operative laboratory testing Z01.812 ; Menopausal and perimenopausal disorder N95.9 and Unspecified menopausal and perimenopausal disorder N95.[address] [place] [address] 01/28/[address] [place] [address] 02/04/2023 [facility] ASSESSMENTS Encounter Date Diagnosis Assessment Notes Treatment Notes Treatment Clinical Notes 01/21/2023 Menopausal disorder (ICD-10 - N95.9) 01/21/2023 Menopausal and perimenopausal disorder (ICD-10 - N95.9) 01/28/2023 Menopausal and perimenopausal disorder (ICD-10 - N95.9) Detailed discussion with patient to explain all lab results. Discussed all options for HRT that are available to the patient as well as reviewed the risks and benefits. Reviewed next steps with patient if she would like to move forward with HRT. States that she would like to do pellets for her HRT. All questions were answered. Time spent on patient care included, review of previous records, preparation for visit, reviewing labs, ordering/reviewing imaging, documenting visit, direct face to face time with patient to obtain relevant history, and discussion of plan of care. Total time was 30 minutes. 01/29/2023 Encounter for pre-operative laboratory testing (ICD-10 - Z01.812) 02/28/2023 Climacteric (ICD-10 - N95.1) 01/29/2023 Menopausal and perimenopausal disorder (ICD-10 - N95.9) 01/29/2023 Unspecified menopausal and perimenopausal disorder (ICD-10 - N95.9) Hormone pellets inserted today per patient desires and medical recommendation. After care and follow up instructions were reviewed with patient in great detail. Patient states that all questions have been answered to her satisfaction. 01/21/2023 Other Mammogram current Method of contraception: menopause Discussed that she has uterus and will need oral progesterone if she proceeds with hormone therapy with estrogen Discussed HRT risks/benefits, and reviewed patient education and informed consent in HRT packet. Discused potenial side effects of fluid retention, swelling, breast tenderness, nipple sensitivity, uterine spotting, mood swings and irritability, acne, hair loss and hair growth. Labs drawn. Patient verbalizes understanding to plan of care. Time spent on patient care included, review of previous records, preparation for visit, ordering labs, documenting visit, direct face to face time with patient to obtain relevant history, and discussion of plan of care. Total time was 45 minutes. 01/29/2023 Other Ice pack x20min, 5 times today Follow up: labs the week of 02/24/2023, follow up appointment one week after labs. PLAN OF TREATMENT Pending Test Test Name Order Date Test, Urine 01/29/2023 ESTRADIOL 02/28/2023 FSH 02/28/2023 TESTOSTERONE, TOTAL, LC/MS/MS 02/28/2023 Next Appt Details Provider Name:Shannan Villagran, 03/10/2023 03:30:00 PM, [address], [place], [place], [id number], Insurance Providers Payer Name Payer Address Payer Phone Subscriber Number Group Number Insured Name Patient Relationship to Insured Coverage Start Date Coverage End Date [facility] (Ins. [facility]) [address] [address] [place], [place] [id number] Temitope Galvez Self - patient is the insured MEDICAL (GENERAL) HISTORY Medical History History ICD Code high cholesterol Pneumonia thyroid problem - possibly hypothyroidis m
[2023-03-06] MEDS: SODIUM CHLORIDE 0.9 % (FLUSH) 10 ML SYRINGE IVF (09:00)
[2023-03-06] MEDS: LACTATED RINGERS 1000 ML 1,000 ML 100 ML IV ×2 (09:00→11:30)
[2023-03-06] MEDS: CEFAZOLIN 2 GM INJ IVP (10:05)
[2023-03-06] MEDS: BUPIVACAINE 0.5% 30 ML INJECTION (10:12)
--- NOTE | 2023-03-06 11:08 | W.ANESCHARGE ---
Anesthesia Charges Start Date/Time Anesthesia Start Date: 03/06/23 Anesthesia Start Time: 09:55 Stop Date/Time Anesthesia Stop Date: 03/06/23 Anesthesia Stop Time: 12:35
--- NOTE | 2023-03-06 12:38 | W.ANESCHARGE ---
Anesthesia Charges Start Date/Time Anesthesia Start Date: 03/06/23 Anesthesia Start Time: 09:55 Stop Date/Time Anesthesia Stop Date: 03/06/23 Anesthesia Stop Time: 12:35
[2023-03-06] MEDS: fentaNYL 100 MCG/2 ML inj 50 MCG IVP ×2 (12:39→12:52)
[2023-03-06] MEDS: LACTATED RINGERS 1000 ML 1,000 ML 35 ML IV (13:07)
--- NOTE | 2023-03-06 13:23 | SUR.PHASEI ---
patient met discharge criteria per anesthesia
--- NOTE | 2023-03-06 13:53 | P.GSOP_ITS ---
Operative Note Pre-op diagnosis: Chronic cholecystitis Post-op diagnosis: Acute cholecystitis, necrotic gallbladder Type of Procedure: Laparoscopic cholecystectomy Indications: Patient is a 52-year-old female who presented to clinic with workup in history consistent with chronic cholecystitis. Risks and benefits of operative intervention were discussed at length with the patient. Risks included but was not limited to: Bleeding, infection, risk of damage to surrounding structures, possible need for additional procedures, possible need to convert to an open operation and postoperative complications such as pneumonia, pulmonary emboli or OK. All questions and concerns were addressed with the patient agreeing to proceed. Procedure Description: After discussing the risks and benefits of the procedure, the patient signed informed consent.? The operative site was marked and the patient was brought to the operating room and placed on the operating table in supine position.? Care was taken to pad the patient's pressure points.?? The patient was then intubated by anesthesia.?? The operative site was then prepped and draped in the usual sterile fashion.? A time-out was then performed. Entrance to the abdomen was gained via a 5 mm Visiport in the left upper quadrant. The abdomen was insufflated and briefly surveyed for signs of injury. There was none. 11 mm umbilical port was placed as well as 2 working ports along the right costal margin. Patient was then placed in reverse Trendelenburg position with the right side up. The gallbladder fundus was grasped and retracted cephalad. A small amount of dissection was needed to free omental adhesions from the gallbladder. The infundibulum was distended but able to be grasped. The gallbladder itself was very edematous, inflamed with a thick rind. A combination of hook cautery and blunt dissection was used to carefully dissect out the cystic duct. This portion of the procedure was made difficult due to the quality of the tissue in active infection. The gallbladder was dissected off the cystic plate to achieve a critical view the cystic duct was ligated with 2 clips proximal and 1 distal. The cystic duct was then transected with scissors. The artery was very small and posterior to the cystic duct. Two clips were able to be applied proximal and 1 clip distal before it was transected. The gallbladder was then taken off of the liver bed. During manipulation of the gallbladder there was some spillage of bile and 6 large stones fell into the abdomen. These were able to be retrieved and removed from the abdomen completely. The bile itself was purulent in nature. A portion of the bile was taken for culture. Once the gallbladder was completely removed fr om the liver bed it was removed from the abdomen using an Endo-Catch bag. The gallbladder bed was surveyed for hemostasis. A small amount of bile which had spilled was suctioned from the abdomen the ports were then removed under direct vision. A drain was placed in the right upper quadrant through the superior lateral port, secondary to the difficulty of the dissection and bleeding of inflammatory tissues. The umbilical port fascia was closed with 0 Vicryl via the Jb-Esme. Three interrupted 0 Vicryl were utilized to ensure an adequate closure. All other ports removed under direct visualization. The skin was closed with absorbable subcuticular suture. Instrument sponge and needle counts were correct at the end of the case. The patient was then woken and transferred to the PACU in stable condition. Findings: Inflamed and necrotic gallbladder, consistent with acute cholecystitis with portions of necrosis. Drain left in the right upper quadrant 15 [place] Don. Anesthesia: GETA Surgeon: Leda Moss MD Estimated blood loss (mL): 20 Specimen: Gallbladder Condition: stable Disposition: PACU Date of procedure: 03/06/23
[2023-03-06] MEDS: 0.9 % SODIUM CHLORIDE 1000 ml 1,000 ML 125 ML IV (14:45)
[2023-03-06] MEDS: PIPERACILLIN/TAZOBACTAM 3.375 GM in 0.9 % SODIUM CHLORIDE Mini-bag 100 ML IVPB ×2 (14:46→20:25)
[2023-03-06] MEDS: HYDROCODONE-ACETAMIN 5-325 MG 1 TAB PO ×2 (16:38→20:24)
[2023-03-06] MEDS: KETOROLAC 15 MG/ML inj IVP (18:54)
--- NOTE | 2023-03-06 19:03 | PC.NURSE ---
End of shift: Post op scheduled cholecystectomy, it ruptured and found gallstones. Post op VS to be completed @ 191. Patient reported mild pain this afternoon gave PO Durand 1x with adequate relief. R upper abdominal incisional pain. R drain gauze have a small amount of drainage present. This evening reported increased pain at the incision site 8 IV Toradol was given. TAY drain with 15cc of serosanguineous out since surgery. 2 voids since surgery. PO intake is average @ 800ml since surgery. Ate 50% of dinner tolerated well with no nausea/vomiting. Patient's family was at bedside most of the evening. Her friend is visiting now. Calls appropriately.
[2023-03-07] MEDS: 0.9 % SODIUM CHLORIDE 1000 ml 1,000 ML 125 ML IV ×2 (00:07→07:56)
[2023-03-07 03:30] VITALS: BP 116/72; PULSE 81; RESP 14; TEMP 36.4; O2SAT 94
[2023-03-07] MEDS: PIPERACILLIN/TAZOBACTAM 3.375 GM in 0.9 % SODIUM CHLORIDE Mini-bag 100 ML IVPB ×2 (03:31→07:55)
[2023-03-07] MEDS: HYDROCODONE-ACETAMIN 5-325 MG 1 TAB PO ×2 (06:20→10:42)
[2023-03-07 06:52] LABS: Basophils Absolute Auto 0.03 K/uL (0.00-0.30); Basophils Percent Auto 0.3 % (0.0-3.0); Eosinophils Absolute Auto 0.03 K/uL (0.00-0.50); Eosinophils Percent Auto 0.3 % (0.0-7.0); Hemoglobin* 12.4 gm/dL (12.0-16.0); Immature Granulocytes Abs Auto 0.02 K/uL (0.00-0.30); Immature Granulocytes Pct Auto 0.2 %; Lymphocytes Percent Auto 15.3 % (20-44); Mean Corpuscular HGB Conc 33 gm/dL (32-36); Mean Corpuscular Hemoglobin 31 pg (26-34); Mean Corpuscular Volume 93 fL (80-100); Neutrophils Percent Auto 77.9 % (42.0-72.0); Platelet Count* 328 K/uL (140-440); Red Blood Count 4.07 m/uL (4.00-5.20); White Blood Count* 10.43 K/uL (4.50-11.00)
[2023-03-07 07:00] VITALS: BP 119/68; PULSE 81; PULSE 85; RESP 14; RESP 16; TEMP 36.6; O2SAT 94
[2023-03-07 07:00] LABS: Slide Review Reflex No
[2023-03-07 07:15] LABS: Albumin* 3.3 g/dL (3.3-5.0)
[2023-03-07 07:16] LABS: Chloride* 106 mmol/L (96-114); Potassium* 3.6 mmol/L (3.6-5.1); Sodium* 138 mmol/L (135-149)
[2023-03-07 07:18] LABS: Anion Gap 7 mEq/L (7-15); Bilirubin Total* 0.4 mg/dL (0.1-1.5); Carbon Dioxide* 25 mmol/L (20-32); Creatinine* 0.7 mg/dL (0.5-1.5); Est. Creatinine Clearance* 92.68; Estimated Glomerular Filt Rate 103 ml/min; Total Protein* 6.2 g/dL (6.0-8.3)
[2023-03-07 07:19] LABS: Alanine Aminotransferase* 35 U/L (4-35); Alkaline Phosphatase* 68 U/L (40-150); Aspartate Amino Transferase* 40 U/L (12-35); Blood Urea Nitrogen* 9 mg/dL (7-30); Calcium* 8.4 mg/dL (8.4-10.6); Glucose* 89 mg/dL (60-115)
[2023-03-07] MEDS: PANTOPRAZOLE SODIUM 40 MG INJ IVP (07:55)
--- NOTE | 2023-03-07 07:55 | PC.NURSE ---
Shift note [id number]: Pt is alert and oriented x3. Afebrile. Pt reports 3/10 pain in abdomen, pt was noted to have facial grimacing and slow movements, pain managed with PRN medication. Pt has 3 lap sites with steri strips that are CDI. Pt has TAY drain that is patent and draining. Pt had 15ml output. TAY dressing has scant dried blood. Pt is up SBA with IV pole. Pt is voiding. Pt slept intermittently throughout night.
--- NOTE | 2023-03-07 09:09 | P.DS_ITS ---
DS: Providers Provider Date Seen: 03/07/23 Primary care physician: Blaine Sharp PA-C Attending Physician on discharge: Leda Moss MD Date of Discharge: 03/07/23 DS: Diagnosis Discharge Diagnosis (1) Cholecystitis, acute: Status: Acute DS: Summary Hospital Course Hospital Course: Patient was admitted to the hospital after she underwent laparoscopic cholecystectomy for acute cholecystitis with necrotic gallbladder. Patient did well postoperatively. Her TAY drain had serosanguineous fluid in the bulb and that was removed prior to her discharge. Time Spent with Patient Time attestation: Total time spent providing and/or coordinating discharge services: Exam Narrative: Exam Narrative: Abdomen is soft, not distended, tender to palpation at the incisions. Laparoscopic incisions are covered with clean and dry Steri-Strips. TAY drain was removed. Neosporin and gauze were placed over her drain exit site. Const: Vital Signs, click to edit/add: Vital Signs - 24 hr 03/06/23 12:25 03/06/23 12:30 03/06/23 12:35 Temperature 97.4 F L 97.4 F L 97.4 F L Pulse Rate 105 H 107 H 107 H Pulse Rate [Right Pulse Oximeter] Respiratory Rate 20 16 20 Blood Pressure 123/79 107/88 135/117 H Blood Pressure [Le ft Arm] Pulse Oximetry 94 96 96 Oxygen Delivery Me thod Room Air Room Air Room Air 03/06/23 12:40 03/06/23 12:45 03/06/23 12:50 Temperature 97.4 F L 97.4 F L 97.4 F L Pulse Rate 96 97 103 H Pulse Rate [Right Pulse Oximeter] Respiratory Rate 20 16 16 Blood Pressure 118/82 117/97 H 122/58 L Blood Pressure [Le ft Arm] Pulse Oximetry 95 92 95 Oxygen Delivery Me thod Room Air Room Air Room Air 03/06/23 12:55 03/06/23 13:00 03/06/23 13:15 Temperature 97.4 F L 97.1 F L 97.2 F L Pulse Rate 99 97 Pulse Rate [Right Pulse Oximeter] 92 Respiratory Rate 17 16 16 Blood Pressure 130/88 119/80 Blood Pressure [Le ft Arm] 138/74 Pulse Oximetry 97 97 96 Oxygen Delivery Me thod Room Air Room Air Room Air 03/06/23 13:30 03/06/23 13:30 03/06/23 13:45 Temperature 97.3 F L 97.5 F L 97.5 F L Pulse Rate 80 Pulse Rate [Right Pulse Oximeter] 87 91 Respiratory Rate 16 16 16 Blood Pressure Blood Pressure [Le ft Arm] 129/70 128/75 Pulse Oximetry 97 97 Oxygen Delivery Me thod Room Air Room Air Room Air 03/06/23 14:00 03/06/23 14:15 03/06/23 14:45 Temperature 97.5 F L 98.0 F 98.0 F Pulse Rate Pulse Rate [Right Pulse Oximeter] 88 90 92 Respiratory Rate 16 16 16 Blood Pressure Blood Pressure [Le ft Arm] 126/69 125/75 125/68 Pulse Oximetry 95 97 97 Oxygen Delivery Me thod Room Air Room Air Room Air 03/06/23 15:15 03/06/23 16:15 03/06/23 17:15 Temperature 98.0 F 98.2 F 98.0 F Pulse Rate Pulse Rate [Right Pulse Oximeter] 94 95 97 Respiratory Rate 16 16 16 Blood Pressure Blood Pressure [Le ft Arm] 126/80 147/88 H 130/79 Pulse Oximetry 96 96 96 Oxygen Delivery Me thod Room Air Room Air Room Air 03/06/23 18:15 03/06/23 19:23 03/06/23 19:24 Temperature 98.8 F 98.8 F 98.8 F Pulse Rate Pulse Rate [Right Pulse Oximeter] 94 98 98 Respiratory Rate 16 16 16 Blood Pressure Blood Pressure [Le ft Arm] 140/90 H 134/76 134/76 Pulse Oximetry 96 96 96 Oxygen Delivery Me thod Room Air Room Air Room Air 03/06/23 19:27 03/06/23 20:24 03/06/23 23:45 Temperature 98.8 F 98.8 F Pulse Rate Pulse Rate [Right Pulse Oximeter] 98 Respiratory Rate 16 Blood Pressure Blood Pressure [Le ft Arm] Pulse Oximetry Oxygen Delivery Me thod 03/06/23 23:45 03/07/23 03:30 Temperature 97.8 F 97.5 F L Pulse Rate Pulse Rate [Right Pulse Oximeter] 79 81 Respiratory Rate 16 14 Blood Pressure Blood Pressure [Le ft Arm] 125/74 116/72 Pulse Oximetry 95 94 Oxygen Delivery Me thod Room Air Room Air DS: Data Data Completed and Pending Labs on day of discharge: Labs from last 24 hours 03/07/23 05:58 WBC 10.43 RBC 4.07 Hgb 12.4 Hct 38.0 MCV 93 MCH 31 MCHC 33 RDW Coeff of Rand 12.0 Plt Count 328 Neut % (Auto) 77.9 H Lymph % (Auto) 15.3 L [place] % (Auto) 6.0 Eos % (Auto) 0.3 Baso % (Auto) 0.3 Neut # (Auto) 8.10 H Lymph # (Auto) 1.60 [place] # (Auto) 0.60 Eos # (Auto) 0.03 Baso # (Auto) 0.03 Abs Immat Gran (auto) 0.02 Imm/Tot Granulo (auto) 0.2 Sodium 138 Potassium 3.6 Chloride 106 Carbon Dioxide 25 Anion Gap 7 BUN 9 Creatinine 0.7 Estimated Creat Clear 92.68 Estimated GFR 103 Glucose 89 Calcium 8.4 Total Bilirubin 0.4 Direct Bilirubin 0.0 AST 40 H ALT 35 Alkaline Phosphatase 68 Total Protein 6.2 Albumin 3.3 Preliminary micro results at discharge 03/06/23 12:29 Aerobic Culture - Preliminary Gallbladder Fluid NO GROWTH AFTER 24 HOURS Anaerobic Culture - Preliminary Culture in Progress Discharge Plan Discharge Disposition: Home, Self-Care Discharging Surgeon: Carlitos Alvarado Follow-Up Appointment: Mar 20 1:45pm Prescriptions: New hydrocodone-acetaminophen 5-325 mg tablet 1 tab PO Q6H PRN (Reason: pain) Qty: 20 0RF senna 8.6 mg capsule 8.6 mg PO DAILY PRN (Reason: constipation) Qty: 90 0RF Continued progesterone micronized 200 mg capsule 200 mg PO QPM estrogen testosterone subcut Activity Level: No strenuous activity Activity Detail: Activity as tolerated. Avoid strenuous activity. No lifting greater than 20 lb for 2 weeks. Discharge Diet: Regular Diet Detail: Continue with a low-fat, bland diet for the next 2 weeks. After 2 weeks you can start reintroducing fatty foods. Patient Instructions: Hydrocodone/Acetaminophen (By mouth), Surgical Site Infections (DC), General Anesthesia (DC), Laparoscopic Cholecystectomy (DC), Post-Operative Instructions: Laparoscopic Cholecystectomy Additional Instructions: You were prescribed a narcotic pain medication. In addition you may supplement with Tylenol and/or ibuprofen. Be sure to not exceed greater than 4 g of Tylenol in a 24 hour period. While on narcotic pain medicine please take stool softeners. A prescription of stool softeners has been sent to the pharmacy. Stop if having greater than 2 stools per day. Your okay to shower, do not soak in a bath or swim for 2 weeks. Allow Steri- Strips to fall off on their own. Forms: Work/School Release Follow-up: Leda Moss MD [Staff Physician] - Discharge Orders: Discharge Order (Routine); Ordered 03/07/23 Ordered By: Carlitos Alvarado
== END 2023-03-07 11:45 | disposition home or self-care (01) ==
LOC: OR 08:25 → MEDSURG 13:51
PROVIDERS: PCP Physician Assistant Medical; Visit Provider Surgery
PROC: 0FT44ZZ Resection of Gallbladder, Percutaneous Endoscopic Approach (ICD-10-PCS; CPT 47562; principal; 2023-03-06 09:15)
DX: K80.12 Calculus of gallbladder with acute and chronic cholecystitis without obstruction (principal)
CPT/HCPCS: 47562; 00790; 36415; 80048; 80076; 85025; 87070; 87075; 87186; 87205; 88304; A9270; C9113; J0330; J0665; J0690; J1100; J1170; J1885; J2250; J2405; J2543; J2704; J3010; J7030; J7120

== ENCOUNTER 2023-04-30 09:55 | Outpatient (CLI) | payer OTHER, SELFPAY ==
--- OUTSIDE RECORDS SUMMARY | 2023-05-01 11:38 | XMS_ITS | Patient Health Record ---
Author Name Unknown Organization [facility] Address [address] [place], [place] [id number] Care Team Providers Care Skip Pit Worker Name Role Phone None, No PCP Primary Care Provider Unavailcar brewster Rebeca Delgado Unavailable [phone] Shannan Villagran Unavailable [phone] Jackelyn Jaeger Unavailable [phone] George Johnson Unavailable [phone] ALLERGIES Allergen (clinical drug ingredient) Drug/Non Drug Allergy documented on EMR Reaction Allergy Type Onset Date Status amoxicillin Amoxicillin hives Drug Allergy Act keith RESULTS Component Value Reference Range Notes ESTRADIOL Reviewed date:03/12/2023 12:13:59 PM Interpretation: Performing Lab:VINNIE [facility] Dada-Myakel Georgee[address] [facility]jeffJ[facility] InstituteMaykelKtrbDG[address] Omar Wade Notes/Report: 0; 0; 0 ESTRADIOL 83 Reference Range Follicular Phase: 19-144 Mid-Cycle: 64-357 Luteal Phase: 56-214 Postmenopausal: < or = 31 Reference range established on post-pubertal patient population. No pre-pubertal reference range established using this assay. For any patients for whom low Estradiol levels are anticipated (e.g. males, pre-pubertal children and hypogonadal/post-menopausal females), the [employer] [facility] Estradiol, Ultrasensitive, LCMSMS assay is recommended (order code 55754). Please note: patients being treated with the drug fulvestrant (Faslodex(R)) have demonstrated significant interference in immunoassay methods for estradiol measurement. The cross reactivity could lead to falsely elevated estradiol test results leading to an inappropriate clinical assessment of estrogen status. [employer] order code [id number], Ultrasensitive LC/MS/MS demonstrates negligible cross reactivity with fulvestrant. FSH Reviewed date:03/12/2023 12:18:49 PM Interpretation: Performing Lab:VINNIE [facility]-Maykel Ylsz[address] TommyMaykel reddyYgryAV[address] Omar Wade Notes/Report: 0; 0; 0 FSH 8.5 Reference Range Follicular Phase 2.5-10.2 Mid-cycle Peak 3.1-17.7 Luteal Phase 1.5- 9.1 Postmenopausal 23.0-116.3 TESTOSTERONE, TOTAL, LC/MS/M S Reviewed date:03/17/2023 02:16:14 PM Interpretation: Performing Lab:Z3E [facility]-[address] [address], [address], ZibebfxiesLQ[address] Meliton Mar MD Notes/Report: 0; 0; 0 TESTOSTERONE, TOTAL, MS 109 2-45 ng/dL For additional information, please refer to https://education.Sportmaniacs/faq/TotalTestosteroneLC MSMS (This link is being provided for informational/educational purposes only.) (Note) This test was developed and its analytical performance characteristics have been determined by [employer]. It has not been cleared or approved by the FDA. This assay has been validated pursuant to the CLIA regulations and is used for clinical purposes. [facility] [address] [address],[address] [facility] [address] Meliton Mar MD ESTRADIOL Reviewed date:01/29/2023 07:39:04 PM Interpretation: Performing Lab:VINNIE [facility]-Maykel Otpw5749 [address] [place] HnsoWN[address] Omar Wade Notes/Report: ESTRADIOL 69 Reference Range Follicular Phase: 19-144 Mid-Cycle: 64-357 Luteal Phase: 56-214 Postmenopausal: < or = 31 Reference range established on post-pubertal patient population. No pre-pubertal reference range established using this assay. For any patients for whom low Estradiol levels are anticipated (e.g. males, pre-pubertal children and hypogonadal/post-menopausal females), the [employer] [facility] Estradiol, Ultrasensitive, LCMSMS assay is recommended (order code 75880). Please note: patients being treated with the drug fulvestrant (Faslodex(R)) have demonstrated significant interference in immunoassay methods for estradiol measurement. The cross reactivity could lead to falsely elevated estradiol test results leading to an inappropriate clinical assessment of estrogen status. [employer] order code [id number], Ultrasensitive LC/MS/MS demonstrates negligible cross reactivity with fulvestrant. DHEA SULFATE Reviewed date:01/29/2023 07:39:04 PM Interpretation: Performing Lab:Deandre [place] [facility]-[address], [place] UbmtJU[address] Omar Wade Notes/Report: DHEA SULFATE 95 5-167 mcg/dL DHEA-S values fall with advancing age. For reference, the reference intervals for 31-40 year old patients are: Male: 93-415 mcg/dL Female: 19-237 mcg/dL FSH Reviewed date:01/29/2023 07:39:04 PM Interpretation: Performing Lab:VINNIE [facility]-[address], [place] MartinezUyqiRD[address] Omar Wade Notes/Report: FSH 35.1 Reference Range Follicular Phase 2.5-10.2 Mid-cycle Peak 3.1-17.7 Luteal Phase 1.5- 9.1 Postmenopausal 23.0-116.3 LH Reviewed date:01/29/2023 07:39:04 PM Interpretation: Performing Lab:VINNIE [facility]-[address], [place] OjvfOE[address] Omar Wade Notes/Report: LH 27.0 Reference Range Follicular Phase 1.9-12.5 Mid-Cycle Peak 8.7-76.3 Luteal Phase 0.5-16.9 Postmenopausal 10.0-54.7 PROLACTIN Reviewed date:01/29/2023 07:39:04 PM Interpretation: Performing Lab:VINNIE [facility] [address], [place] ZyvbTJ[address] Omar Wade Notes/Report: PROLACTIN 7.4 Reference Range Females Non- 3.0-30.0 10.0-209.0 Postmenopausal 2.0-20.0 CORTISOL, TOTAL Reviewed date:01/29/2023 07:39:04 PM Interpretation: Performing Lab:VINNIE [facility] [address], [place] XbnrCO[address] Omar Wade Notes/Report: CORTISOL, TOTAL 5.3 Reference Range: For 8 a.m.(7-9 a.m.) Specimen: 4.0-22.0 Reference Range: For 4 p.m.(3-5 p.m.) Specimen: 3.0-17.0 * Please interpret above results accordingly * TSH Reviewed date:01/29/2023 07:39:04 PM Interpretation: Performing Lab:VINNIE [facility] [address], InofileMtpuDK[address] Omar Wade Notes/Report: TSH 3.19 Reference Range > or = 20 Years 0.40-4.50 Ranges First trimester 0.26-2.66 Second trimester 0.55-2.73 Third trimester 0.43-2.91 VITAMIN D,25-OH,TOTAL,IA Reviewed date:01/29/2023 07:39:04 PM Interpretation: Performing Lab:VINNIE [facility]-[place], InofileBfohLC[address] Omar Wade Notes/Report: VITAMIN D,25-OH,TOTAL,IA 38 30-100 ng/mL Vitamin D Status 25-OH Vitamin D: Deficiency: <20 ng/mL Insufficiency: 20 - 29 ng/mL Optimal: > or = 30 ng/mL For 25-OH Vitamin D testing on patients on D2-supplementation and patients for whom quantitation of D2 and D3 fractions is required, the QuestAssureD(TM) 25-OH VIT D, (D2,D3), LC/MS/MS is recommended: order code [id number] (patients >2yrs). See Note 1 Note 1 For additional information, please refer to http://education.The Poker BarrelDiagnosti ENEFpro.com/faq/DGL331 (This link is being provided for informational/ educational purposes only.) SEX HORMONE BINDING GLOBULIN Reviewed date:01/29/2023 07:39:04 PM Interpretation: Performing Lab:VINNIE [facility]-[place] [address], 3VRAljtZM[address] Omar Wade Notes/Report: SEX HORMONE BINDING GLOBULIN 68 17-124 nmol/ L TESTOSTERONE, TOTAL, LC/MS/M S Reviewed date:01/29/2023 07:39:04 PM Interpretation: Performing Lab:Z3E, [facility]-[address]cl[address] [address], [address], WfgukcjtgvPN[address] Meliton Mar MD Notes/Report: TESTOSTERONE, TOTAL, MS 22 2-45 ng/dL For additional information, please refer to https://education.Mappyfriends.com/faq/TotalTestosteroneLC MSMS (This link is being provided for informational/educational purposes only.) (Note) This test was developed and its analytical performance characteristics have been determined by [employer]. It has not been cleared or approved by the FDA. This assay has been validated pursuant to the CLIA regulations and is used for clinical purposes. [facility] [employer] [address] [place] [address],[address] [facility] [address] Meliton Mar MD TESTOSTERONE, FREE Reviewed date:01/29/2023 07:39:04 PM Interpretation: Performing Lab:Z3E, [facility]-[address] [place] [address], [address], WmewzgdwjeXO[address] Meliton Mar MD Notes/Report: TESTOSTERONE, FREE 1.6 0.2-5.0 pg/mL (Note) The concentration of free testosterone is derived from a mathematical model using total testosterone by LCMSMS, sex hormone binding globulin and albumin. This test was developed and its analytical performance characteristics have been determined by [employer]. It has not been cleared or approved by the FDA. This assay has been validated pursuant to the CLIA regulations and is used for clinical purposes. [facility] [employer] [address] [place] [address],[address] [facility] [address] Meliton Mar MD Test, Urine Reviewed date:04/03/2023 06:32:15 AM Interpretation:Negative Performing Lab: Notes/Report: Negative Test, Urine Negative Negative - REASON FOR REFERRAL No Information MEDICATIONS Medication SIG (Take, Route, Fr equency, Duration) Notes Start Date End Date Status Testosterone pellets Active Progesterone 200 MG 1 capsule at bedtime [...] (N95.9) Active confirmed Menopausal and postmenopausal disorders (095202663) Problem Menopausal and perimenopausal disorder (N95.9) Active confirmed Menopausal and postmenopausal disorders (112517011) Problem Climacteric (N95.1) Active confirmed Menopause (219018959) Problem Menopausal disorder (N95.9) Active confirmed Menopausal and postmenopausal disorders (446647173) VITAL SIGNS Blood pressure diastolic 76 mm Hg 04/14/2023 Height 68 in 04/14/2023 Blood pressure systolic 116 mm Hg 04/14/2023 Weight 200.4 lbs 04/14/2023 BMI 30.47 kg/m2 04/14/2023 Encounters Encounter Location Date Provider Diagnosis [address] [address] 01/28/[address] [address] 02/04/[address] [address] 04/30/2023 George Johnson Menopausal and perimenopausal disorder N95.9 [facility] [address] [place] [address] 02/28/2023 [facility] Climacteric N95.1 [facility] [address] [place] [address] 03/11/2023 Shannan Villagran Climacteric N95.1 [facility] [address] [place] [address] 01/21/2023 [facility] Menopausal disorder N95.9 [facility] [address] [address] [place] [address] 01/29/2023 [facility] Encounter for pre-operative laboratory testing Z01.812 ; Menopausal and perimenopausal disorder N95.9 and Unspecified menopausal and perimenopausal disorder N95.9 [facility] [address] [address] [place] [address] 04/14/2023 George Johnson Menopausal and perimenopausal disorder N95.9 [facility] [address] [address] [place] [address] 01/28/2023 [facility] Menopausal and perimenopausal disorder N95.9 [facility] [address] [place], [place] [id number] 03/10/2023 Shannan Villagran [facility] [address] [facility] [address] [place] [address] 03/19/2023 Jackelyn Jaeger Menopausal and perimenopausal disorder N95.9 [facility] [address] [place] [address] 03/10/2023 [facility] [address] [place] [address] 01/21/2023 [facility] Menopausal and perimenopausal disorder N95.9 [facility] [address] [place] [address] 01/21/2023 [facility] ASSESSMENTS Encounter Date Diagnosis Assessment Notes Treatment Notes Treatment Clinical Notes 04/14/2023 Menopausal and perimenopausal disorder (ICD-10 - N95.9) 04/30/2023 Menopausal and perimenopausal disorder (ICD-10 - N95.9) 01/21/2023 Menopausal disorder (ICD-10 - N95.9) 03/19/2023 Menopausal and perimenopausal disorder (ICD-10 - N95.9) I recommend doing a full dose again but lowering the dose. I would recommend 6-10mg estradiol and 75mg testosterone and then go another 3 months before another full pellet. Pt likes this recommendation. Will make appt in the next 1-2 weeks for pellet insert at the [facility]. 03/11/2023 Climacteric (ICD-10 - N95.1) 01/28/2023 Menopausal and perimenopausal disorder (ICD-10 - [...] of care. Total time was 30 minutes. 01/21/2023 Menopausal and perimenopausal disorder (ICD-10 - N95.9) 02/28/2023 Climacteric (ICD-10 - N95.1) 01/29/2023 Encounter for pre-operative laboratory testing (ICD-10 - Z01.812) 01/29/2023 Menopausal and perimenopausal disorder (ICD-10 - [...] follow up appointment one week after labs. 03/19/2023 Other This visit was conducted with the use of audio and video telecommunications system that permits real time communication between the patient and provider. Patient consent for virtual visit was obtained. Originating site: [facility] location Distant site: pt home Start time: 1140 Stop time: 1150 04/14/2023 Other -HRT pellet inserted as documented above without complication -Post-insertion instructions reviewed. Printed handout with instructions given along with ice pack. Repeat ice to insertion site for 20 min. 3-5 times a day PRN for soreness at insertion site -Report any signs of infection or pellet expulsion -Repeat labs in 3 months (E2, FSH, total testosterone) with next insertion 1 week later -Follow up as needed before next insertion if any concerns 03/10/2023 Other This visit was conducted with the use of audio and video telecommunications system that permits real time communication between the patient and provider. Patient consent for virtual visit was obtained. Originating site: [facility] - location Distant site: pt home Start time: Stop time: PLAN OF TREATMENT Next Appt Details Provider Name:George Johnson, 06/30/2023 11:00:00 AM, [address] [place], [address], Provider Name:George Johnson, 07/07/2023 08:00:00 AM, [address] [place], [address], Insurance Providers Payer Name Payer Address Payer Phone Subscriber Number Group Number Insured Name Patient Relationship to Insured Coverage Start Date Coverage End Date [facility] Commercial (Ins. Bill) [address] [address] [place], [place] [phone] [id number] Temitope Galvez Self - patient is the insured MEDICAL (GENERAL) HISTORY Medical History History ICD Code hyperlipidemia Pneumonia thyroid problem - possibly hypothyroidis m
== END 2023-04-30 09:56 | disposition home or self-care (01) ==
LOC: NFLDREF 05-01 11:36
PROVIDERS: PCP Physician Assistant Medical; Referring Provider Physician Assistant Medical; Visit Provider Physician Assistant Medical
DX: R30.0 Dysuria (principal); N39.0 Urinary tract infection, site not specified; N30.00 Acute cystitis without hematuria
CPT/HCPCS: 87086; 87186

== ENCOUNTER 2023-05-17 06:39 | Emergency (ER) | payer OTHER, SELFPAY ==
[2023-05-17 06:55] VITALS: BP 127/83; PULSE 77; RESP 18; TEMP 36.8; O2SAT 97
--- NOTE | 2023-05-17 07:19 | ED.EYEPROB ---
HPI - Eye Problem General Chief complaint: Eye Problems Stated complaint: cat scratch in eye Time Seen by Provider: 05/17/23 07:09 History of Present Illness HPI Narrative: Patient is a 52-year-old woman who awoke this morning to find the cat adjacent to her head. The cat pawed quickly at patients right eye and patient developed pain in her eye. The pain resolved however she is left with a redness at the sclera inferior to the iris and pupil. She has no damage to any of the surrounding soft tissue around the eye and has no further discomfort has what appears to be a sub scleral hemorrhage. Patient is up-to-date on her tetanus shot. She has no other significant symptoms but is concerned due to the damage to her eye. Patient's visual acuity is unchanged. She is wearing glasses instead of contacts today. Related Data Home Medications Medication Instructions Recorded Confirmed estrogen testosterone subcut 03/04/23 04/30/23 progesterone micronized 200 mg 200 mg PO QPM 03/04/23 04/30/23 capsule Previous Rx's Medication Instructions Recorded sennosides 8.6 mg capsule (senna) 8.6 mg PO DAILY PRN constipation 03/06/23 #90 caps Allergies Allergy/AdvReac Type Severity Reaction Status Date / Time amoxicillin Allergy Intermediate Hives Verified 04/30/23 10:11 Review of Systems Status of ROS: Reports: 10 or more systems reviewed and unremarkable except as noted in History and below [facility] Medical History Urinary tract infection ?N39.0 - Urinary tract infection, site not specified (ICD-10) Rash ?R21 - Rash and other nonspecific skin eruption (ICD-10) Surgical History S/P laparoscopic cholecystectomy ?Z90.49 - Acquired absence of other specified parts of digestive tract (ICD-10) No history of previous surgery Family History Father Diabetes Aunt Ovarian cancer Social History Narrative: Consumes alcohol occasionally Does not use illicit drugs Has 1 child- Daughter, Meaghan Nonsmoker Smoking Status: Never smoker Second hand tobacco smoke exposure: No How often do you have a drink containing alcohol: monthly or less How often do you have six or more drinks on one occasion: Never AUDIT-C Alcohol total score: 1 Non-prescribed substance use: denies use Caffeine: Yes (daily cup of coffee) Little interest or pleasure in doing things: not at all Feeling down, depressed, or hopeless: not at all Exam Narrative: Exam Narrative: EXAM GENERAL: Patient appears comfortable and well. EYES: Sub scleral hemorrhage noted with normal extraocular and intra-ocular movement. No signs of corneal abrasion. No signs of any other injury to the eye. LYMPH: No supraclavicular or cervical lymphadenopathy. SKIN: Visible skin seen during exam normal or with benign process only. EXT: No dependent lower extremity pedal edema. HEART: Regular rate and rhythm with no murmurs, rubs, or gallops. LUNGS: Clear to auscultation bilaterally with no crackles or wheezes. ABD: Soft, non tender, non distended. PSYCH: Good eye contact, speech is not pressured. Const: Vital Signs, click to edit/add: Vital Signs - 24 hr 05/17/23 06:55 Temperature 98.2 F Pulse Rate [Right Pulse Oximeter] 77 Respiratory Rate 18 Blood Pressure [Le ft Upper Arm] 127/83 Pulse Oximetry 97 Oxygen Delivery Me thod Room Air Course Course ED Course: Patient seen and examined. Vital Signs Vital signs: Initial Vital Signs Temperature 98.2 F 05/17/23 06:55 Temperature Source Temporal Artery Scan 05/17/23 06:55 Pulse Rate 77 05/17/23 06:55 Pulse Rhythm Regular 05/17/23 06:55 Respiratory Rate 18 05/17/23 06:55 Blood Pressure 127/83 05/17/23 06:55 Blood Pressure Mean 97 05/17/23 06:55 Blood Pressure Position Sitting 05/17/23 06:55 Pulse Oximetry 97 05/17/23 06:55 Oxygen Delivery Method Room Air 05/17/23 06:55 Vital Signs Temperature 98.2 F 05/17/23 06:55 Pulse Rate 77 05/17/23 06:55 Respiratory Rate 18 05/17/23 06:55 Blood Pressure 127/83 05/17/23 06:55 Pulse Oximetry 97 05/17/23 06:55 Oxygen Delivery Method Room Air 05/17/23 06:55 Temperature 98.2 F 05/17/23 06:55 Pulse Rate 77 05/17/23 06:55 Respiratory Rate 18 05/17/23 06:55 Blood Pressure 127/83 05/17/23 06:55 Pulse Oximetry 97 05/17/23 06:55 Oxygen Delivery Method Room Air 05/17/23 06:55 MDM - Eye Problem MDM Narrative Medical decision making narrative: Patient is a 52-year-old woman who suffered a sub scleral hemorrhage from being pawed in the right eye by a cat. No signs of foreign body or corneal abrasion however she does have a sub scleral hemorrhage. Visual acuity is normal. Because of the exposure to cat saliva I will cover her with Keflex for the next 7 days and recommend symptomatic treatment of her eye. Patient will follow-up with her primary physician as needed. Differential Diagnosis Differential diagnosis: Likely corneal abrasion, conjunctivitis, acute iritis, hyphema, periorbital cellulitis, subconjunctival hemorrhage, glaucoma, corneal ulcer and ruptured globe Discharge Plan Discharge Clinical Impression: Scleral hemorrhage Patient Disposition: Home w/ Parent or Adult Condition: Stable Instructions: Subconjunctival Hemorrhage (ED) Additional Instructions: Keflex as directed Eye moisturization as needed Symptomatic treatment with Tylenol and Motrin Follow-up with your doctor as needed. Activity Level: No Restrictions Discharge Diet: Regular Prescriptions: No Action progesterone micronized 200 mg capsule 200 mg PO QPM estrogen testosterone subcut senna 8.6 mg capsule 8.6 mg PO DAILY PRN (Reason: constipation) Qty: 90 0RF Follow Up/Referrals: Blaine Sharp PA-C [Primary Care Provider] - Stand Alone Forms: [employer] Medical Info Instructions
--- OUTSIDE RECORDS SUMMARY | 2023-05-17 07:29 | XMS_ITS | Patient Health Record ---
Author Name Unknown Organization [facility] Address [address] [place] [address] Care Team Providers Care Tank Maker Wood Name Role Phone None, No PCP Primary Care Provider Unavailcar Rebeca Manriquez Unavailable [phone] Shannan Villagran Unavailable [phone] Jackelyn Jaeger Unavailable [phone] George Johnson Unavailable [phone] ALLERGIES Allergen (clinical drug ingredient) Drug/Non Drug Allergy documented on EMR Reaction Allergy Type Onset Date Status amoxicillin Amoxicillin hives Drug Allergy Act keith RESULTS Component Value Reference Range Notes ESTRADIOL Reviewed date:01/29/2023 07:39:04 PM Interpretation: Performing Lab:VINNIE [employer] [address] [facility] HospitalMaykelMlfpMD[address] Omar Wade Notes/Report: ESTRADIOL 69 Reference Range Follicular Phase: 19-144 Mid-Cycle: 64-357 Luteal Phase: 56-214 Postmenopausal: < or = 31 Reference range established on post-pubertal patient population. No pre-pubertal reference range established using this assay. For any patients for whom low Estradiol levels are anticipated (e.g. males, pre-pubertal children and hypogonadal/post-menopausal females), the [facility] Estradiol, Ultrasensitive, LCMSMS assay is recommended (order code 80099). Please note: patients being treated with the drug fulvestrant (Faslodex(R)) have demonstrated significant interference in immunoassay methods for estradiol measurement. The cross reactivity could lead to falsely elevated estradiol test results leading to an inappropriate clinical assessment of estrogen status. [facility] order code [id number]-[id number], Ultrasensitive LC/MS/MS demonstrates negligible cross reactivity with fulvestrant. DHEA SULFATE Reviewed date:01/29/2023 07:39:04 PM Interpretation: Performing Lab:VINNIE [facility] [address], [place] MartinezUcamVJ[address] Omar Wade Notes/Report: DHEA SULFATE 95 5-167 mcg/dL DHEA-S values fall with advancing age. For reference, the reference intervals for 31-40 year old patients are: Male: 93-415 mcg/dL Female: 19-237 mcg/dL FSH Reviewed date:01/29/2023 07:39:04 PM Interpretation: Performing Lab:VINNIE [facility] [address], [place] MartinezNgjnBM[address] Omar Wade Notes/Report: FSH 35.1 Reference Range Follicular Phase 2.5-10.2 Mid-cycle Peak 3.1-17.7 Luteal Phase 1.5- 9.1 Postmenopausal 23.0-116.3 LH Reviewed date:01/29/2023 07:39:04 PM Interpretation: Performing Lab:Deandre [place] [employer]-[address], [place] WallaceZrymVN[address] Omar Wade Notes/Report: LH 27.0 Reference Range Follicular Phase 1.9-12.5 Mid-Cycle Peak 8.7-76.3 Luteal Phase 0.5-16.9 Postmenopausal 10.0-54.7 PROLACTIN Reviewed date:01/29/2023 07:39:04 PM Interpretation: Performing Lab:De[place]re [place] [employer], May[place] MartinezMliuNQ[address] Omar Wade Notes/Report: PROLACTIN 7.4 Reference Range Females Non- 3.0-30.0 10.0-209.0 Postmenopausal 2.0-20.0 CORTISOL, TOTAL Reviewed date:01/29/2023 07:39:04 PM Interpretation: Performing Lab:VINNIE [facility] [address], [place] MartinezZelhIX[address] Omar Wade Notes/Report: CORTISOL, TOTAL 5.3 Reference Range: For 8 a.m.(7-9 a.m.) Specimen: 4.0-22.0 Reference Range: For 4 p.m.(3-5 p.m.) Specimen: 3.0-17.0 * Please interpret above results accordingly * TSH Reviewed date:01/29/2023 07:39:04 PM Interpretation: Performing Lab:VINNIE [facility]-[address], May[place] MartinezWroyMR[address] Omar Wade Notes/Report: TSH 3.19 Reference Range > or = 20 Years 0.40-4.50 Ranges First trimester 0.26-2.66 Second trimester 0.55-2.73 Third trimester 0.43-2.91 VITAMIN D,25-OH,TOTAL,IA Reviewed date:01/29/2023 07:39:04 PM Interpretation: Performing Lab:VINNIE [facility]-[address], May[place] MartinezBbyrUP[address] Omar Wade Notes/Report: VITAMIN D,25-OH,TOTAL,IA 38 30-100 ng/mL Vitamin D Status 25-OH Vitamin D: Deficiency: <20 ng/mL Insufficiency: 20 - 29 ng/mL Optimal: > or = 30 ng/mL For 25-OH Vitamin D testing on patients on D2-supplementation and patients for whom quantitation of D2 and D3 fractions is required, the QuestAssureD(TM) 25-OH VIT D, (D2,D3), LC/MS/MS is recommended: order code [id number] (patients >2yrs). See Note 1 Note 1 For additional information, please refer to http://Recommind.[employer] Stix.Clinical Innovations/faq/ZUJ899 (This link is being provided for informational/ educational purposes only.) SEX HORMONE BINDING GLOBULIN Reviewed date:01/29/2023 07:39:04 PM Interpretation: Performing Lab:VINNIE [facility] [address], [place] QdhfHA[address] Omar Wade Notes/Report: SEX HORMONE BINDING GLOBULIN 68 17-124 nmol/ L TESTOSTERONE, TOTAL, LC/MS/M S Reviewed date:01/29/2023 07:39:04 PM Interpretation: Performing Lab:Z3Vladislav, [employer] [place] [address], [address], DkeuvdzssmVH[address] Meliton Mar MD Notes/Report: TESTOSTERONE, TOTAL, MS 22 2-45 ng/dL For additional information, please refer to https://education.ticketscript/faq/TotalTestosteroneLC MSMS (This link is being provided for informational/educational purposes only.) (Note) This test was developed and its analytical performance characteristics have been determined by [employer]. It has not been cleared or approved by the FDA. This assay has been validated pursuant to the CLIA regulations and is used for clinical purposes. [facility] [address] [place] [address],[address] [place] [address] Meliton Mar MD TESTOSTERONE, FREE Reviewed date:01/29/2023 07:39:04 PM Interpretation: Performing Lab:Z3E, [employer] acquired by [employer]-[address] [place] [address], [place] [address], KujccytcdyMH[address] Meliton Mar MD Notes/Report: TESTOSTERONE, FREE 1.6 0.2-5.0 pg/mL (Note) The concentration of free testosterone is derived from a mathematical model using total testosterone by LCMSMS, sex hormone binding globulin and albumin. This test was developed and its analytical performance characteristics have been determined by [facility]. It has not been cleared or approved by the FDA. This assay has been validated pursuant to the CLIA regulations and is used for clinical purposes. [facility] [employer] [address] [place] [address],[address] [place] [address] Meliton Mar MD TESTOSTERONE, TOTAL, LC/MS/M S Reviewed date:03/17/2023 02:16:14 PM Interpretation: Performing Lab:Z3E, [employer] [place] [address], [address] StreetTX[address] Meliton Mar MD Notes/Report: 0; 0; 0 TESTOSTERONE, TOTAL, MS 109 2-45 ng/dL For additional information, please refer to https://education.Floodlight.Clinical Innovations/faq/TotalTestosteroneLC MSMS (This link is being provided for informational/educational purposes only.) (Note) This test was developed and its analytical performance characteristics have been determined by [employer]. It has not been cleared or approved by the FDA. This assay has been validated pursuant to the CLIA regulations and is used for clinical purposes. [facility] [employer] [address] [place] [address],[address] [place] [address] Meliton Mar MD FSH Reviewed date:03/12/2023 12:18:49 PM Interpretation: Performing Lab:VINNIE Deandre [place], [place] MfosTP[address] Omar Wade Notes/Report: 0; 0; 0 FSH 8.5 Reference Range Follicular Phase 2.5-10.2 Mid-cycle Peak 3.1-17.7 Luteal Phase 1.5- 9.1 Postmenopausal 23.0-116.3 ESTRADIOL Reviewed date:03/12/2023 12:13:59 PM Interpretation: Performing Lab:Deandre [place] [address], May[place] MartinezPhiaCJ[address] Omar Wade Notes/Report: 0; 0; 0 ESTRADIOL 83 Reference Range Follicular Phase: 19-144 Mid-Cycle: 64-357 Luteal Phase: 56-214 Postmenopausal: < or = 31 Reference range established on post-pubertal patient population. No pre-pubertal reference range established using this assay. For any patients for whom low Estradiol levels are anticipated (e.g. males, pre-pubertal children and hypogonadal/post-menopausal females), the [facility] Estradiol, Ultrasensitive, LCMSMS assay is recommended (order code 73895). Please note: patients being treated with the drug fulvestrant (Faslodex(R)) have demonstrated significant interference in immunoassay methods for estradiol measurement. The cross reactivity could lead to falsely elevated estradiol test results leading to an inappropriate clinical assessment of estrogen status. Quest[facility] order code [id number]-Oekqeolsd, Ultrasensitive LC/MS/MS demonstrates negligible cross reactivity with fulvestrant. Test, Urine Reviewed date:04/03/2023 06:32:15 AM Interpretation:Negative [...] (N95.9) Active confirmed Menopausal and postmenopausal disorders (785381569) Problem Menopausal and perimenopausal disorder (N95.9) Active confirmed Menopausal and postmenopausal disorders (830712219) Problem Climacteric (N95.1) Active confirmed Menopause (266713936) Problem Menopausal disorder (N95.9) Active confirmed Menopausal and postmenopausal disorders (610081683) VITAL SIGNS Blood pressure diastolic 76 mm Hg 04/14/2023 Height 68 in 04/14/2023 Blood pressure systolic 116 mm Hg 04/14/2023 Weight 200.4 lbs 04/14/2023 BMI 30.47 kg/m2 04/14/2023 Encounters Encounter Location Date Provider Diagnosis [facility] [address] [place] [address] 01/21/2023 [facility] [address] [place] [address] 03/10/2023 [facility] [address] [place] [address] 03/10/2023 Shannan Villagran [facility] [address] [place] [address] 01/21/2023 [facility] Menopausal and perimenopausal disorder N95.9 [facility] [address] [place] [address] 01/21/2023 [facility] Menopausal disorder N95.9 [facility] [address] [place] [address] 01/28/2023 [facility] Menopausal and perimenopausal disorder N95.9 [facility] [address] [place] [address] 01/29/2023 [facility] Encounter for pre-operative laboratory testing Z01.812 ; Menopausal and perimenopausal disorder N95.9 and Unspecified menopausal and perimenopausal disorder N95.9 [facility] [address] [place] [address] 02/28/2023 [facility] Climacteric N95.1 [facility] [address] [place] [address] 03/11/2023 Shannan Bartholomewbry Climacteric N95.1 [facility] [address] [place] [address] [place] [address] 03/19/2023 Jackelyn Mil Menopausal and perimenopausal disorder N95.9 [facility] [address] [place] [address] 04/14/2023 George Johnson Menopausal and perimenopausal disorder N95.9 [facility] [address] [place] [address] [place] [address] 01/28/2023 [facility] [address] [place] [address] [place] [address] 02/04/2023 [facility] [address] [place] [address] [place] [address] 04/30/2023 George Johnson Menopausal and perimenopausal disorder N95.9 ASSESSMENTS Encounter Date Diagnosis Assessment Notes Treatment [...] - Z01.812) 02/28/2023 Climacteric (ICD-10 - N95.1) 03/11/2023 Climacteric (ICD-10 - N95.1) 03/19/2023 Menopausal and perimenopausal disorder (ICD-10 - N95.9) I recommend doing a full dose again but lowering the dose. I would recommend 6-10mg estradiol and 75mg testosterone and then go another 3 months before another full pellet. Pt likes this recommendation. Will make appt in the next 1-2 weeks for pellet insert at the [facility]. 04/14/2023 Menopausal and perimenopausal disorder (ICD-10 - N95.9) 04/30/2023 Menopausal and perimenopausal disorder (ICD-10 - N95.9) 01/29/2023 Menopausal and perimenopausal disorder (ICD-10 - N95.9) 01/29/2023 Unspecified menopausal and perimenopausal disorder (ICD-10 - N95.9) Hormone pellets inserted today per patient desires and medical recommendation. After care and follow up instructions were reviewed with patient in great detail. Patient states that all questions have been answered to her satisfaction. 03/10/2023 Other This visit was conducted with the use of audio and video telecommunications system that permits real time communication between the patient and provider. Patient consent for virtual visit was obtained. [facility]inating site: [facility] [place] Distant site: pt home Start time: Stop time: 01/21/2023 Other Mammogram current Method of contraception: [...] for virtual visit was obtained. Originating site: [facility] Distant site: pt home Start time: 1140 [...] needed before next insertion if any concerns PLAN OF TREATMENT Next Appt Details Provider Name:George Johnson, 06/30/2023 11:00:00 AM, [address] [place], [address], Provider Name:George Busheamon, 07/07/2023 08:00:00 AM, [address] [place], [address], Insurance Providers Payer Name Payer Address Payer Phone Subscriber Number Group Number Insured Name Patient Relationship to Insured Coverage Start Date Coverage End Date [facility] Commercial (Ins. Bill) [address] [address] [place], [place] [id number] Temitope Galvez Self - patient is the insured MEDICAL (GENERAL) HISTORY Medical History History ICD Code hyperlipidemia Pneumonia thyroid problem - possibly hypothyroidis m
== END 2023-05-17 07:43 | disposition home or self-care (01) ==
LOC: ED 07:27
PROVIDERS: Emergency Provider Internal Medicine; PCP Physician Assistant Medical
DX: H11.31 Conjunctival hemorrhage, right eye (principal); W55.03XA Scratched by cat, initial encounter
CPT/HCPCS: 99282; 99283

== ENCOUNTER 2023-11-07 07:45 | Outpatient (CLI) | payer OTHER, SELFPAY ==
--- OUTSIDE RECORDS SUMMARY | 2023-11-07 07:47 | XMS_ITS | Encounter Summary ---
Author Organization [facility] Address [address] [place] [address] Care Team Providers Care Mechanical Engineering Draftsperson Name Role Phone Elsewhere, Pcp Primary Care Provider Unavailabl e Encounter Details Date Type Department Care Team (Late st Contact Info) Description 12/23/2012 Historical Ophthalmology [facility] Laura Foster M.D. [address] [address] Social History Tobacco Use Types Packs/Day Years Used Date Smoking Tobacco: Never Assessed Sex and Gender Information Value Date Recorded Sex Assigned at Not on file Gender Identity Female 09/23/2022 2:38 PM CDT Sexual Orientation Straight 09/23/2022 2: 38 PM CDT documented as of this encounter Progress Notes * Laura Foster M.D. - 12/23/2012 9:41 AM CDT Eye General CHIEF COMPLAINT Pain; left eye; x 1 day; constantl; symptoms reported at level of 3/10. HISTORY OF PRESENT ILLNESS Pain; left eye; x 1 day; constantl; symptoms reported at level of 3/10. Patient states a dull ache. EAA weird ache in left eye. Dull ache with burning when she blinks. Watering a lots. Not super painful. Started this morning when she woke up. Fine last night when she went to bed. Occasional sharpsensation. No foreign body sensation. Keeping it closed feels better. Did use visine once this morning. Did have a corneal abrasion about a year ago. Not feeling sick. Contact lens wearer Soft contact lens wearer, monthly, wears them 1 month, never at night, Opti- free, rinses night, usually wears contacts about 15 hours a day. IMPRESSION / REPORT / PLAN #1 corneal ulcer, left eye .5mmx.5mm outside of visual axis with overlying pinpoint epi defect. Recommend: - No CL wear x 1 month - Vigamox Q2 hours while awake - PF artificial tears. 6-8x per day - RTC tomorrow #2 Contact lens overuse Hygiene reportedly very good. Explained etiology of issue and prevention techniques. Advised on peroxide washes, possible daily lenses, avoiding overwear. Staying out of contacts for at least the next month. Did have dilated exam 10 months ago with no abnormalities. DIAGNOSIS #1 corneal ulcer, left eye #2 Contact lens overuse CDM Reports - EYEGEN Id: [id number] Status: Fnl documented in this encounter Plan of Treatment Not on file documented as of this encounter Visit Diagnoses Not on filedocumented in this encounter Additional Health Concerns Assessment Noted Time PHQ-9 Depression Total Score: 7 12/03/19 13 11:39 AM CDT documented as of this encounter Care Teams Mechanical Engineering Draftsperson Relationship Specialty Start Date End Date Elsewhere, Pcp PCP - General 09/07/21 documented as of this encounter
--- OUTSIDE RECORDS SUMMARY | 2023-11-07 07:47 | XMS_ITS | Clinical Summary ---
Author Organization [facility] Address [address] [place] [address] Care Team Providers Care Lawn Service Supervisor Name Role Phone Elsewhere, Pcp Primary Care Provider Unavailabl e Source Comments Patient records contain information from all sites at [facility]. For routine questions regarding patient records, call [phone] during business hours, M-F 8:00 AM - 5:00 PM Central Time. Record requests for emergency care only can be directed to [phone] at any time.[facility] Allergies Active Allergy Reactions Criticality Noted Date Comments Amoxicillin Hives (Reselect Reaction) High 2 Medications Medication Sig Dispensed Refills Start Date End Date Status atorvastatin (LIPITOR) 10 mg tablet Take 20 mg by mouth. 02/26/2022 Acti ve topiramate (TOPAMAX) 100 mg tablet Take 100 mg by mouth. 03/12/2022 Active triamcinolone acetonide (triamcinolone in Vanicream) 0.01 % cream Apply topically. 03/12/2022 Active triamcinolone (KENALOG) 0.1 % creamIndications:Tin ea Pedis,Onychomycosis Apply 1 Application topically 2 (two) times a day. Apply to rash on right foot; wait to start until 2 weeks after starting the terbinafine. 240 g 09/23/2022 Active Active Problems Problem Noted Date Diagnosed Date Depression Situational 12/02/2012 Immunizations Name Administration Dates Next Due Influenza (IM) Preservative Free 04/01/2012 MMR 02/18/2013,11/29/2011 Td, (Adult) Unspecified 08/07/2009 Tdap 02/09/2015 influenza vaccine quad (FLUZ ONE/FLUARIX) (6 months and older)(PF) 03/29/2015 Social History Tobacco Use Types Packs/Day Years Used Date Smoking Tobacco: Never Humiliation, Afraid, Rape, and Kick questionnair e Answer Date Recorded Within the last year, have y ou been afraid of your partner or ex-partner? No 09/23/2022 Within the last year, have y ou been humiliated or emotionally abused in other ways by your partner or ex-partner? No Within the last year, have y ou been kicked, hit, slapped, or otherwise physically hurt by your partner or ex-partner? No 09/23/2022 Within the last year, have y ou been raped or forced to have any kind of sexual activity by your partner or ex-partner? No 09/23/2022 Social Connection and Isolat ion Panel [NHANES] Answer Date Recorded In a typical week, how many times do you talk on the phone with family, friends, or neighbors? Three times a week 09/23/2022 How often do you get togethe r with friends or relatives? Once a week 09/23/2022 How often do you attend chur or yazidism services? More than 4 times per year 09/23/2022 Do you belong to any clubs o r organizations such as jehovah's witness groups, unions, fraternal or athletic groups, or school groups? Yes 09/23/2022 How often do you attend meet ings of the clubs or organizations you belong to? 1 to 4 times per year 09/23/2022 Are you , , di vorced, , never , or living with a partner? 09/23/2022 AUDIT-C Answer Date Recorded Q1: How often do you have a drink containing alc ohol? Monthly or less 09/23/2022 Q2: How many drinks containi ng alcohol do you have on a typical day when you are drinking? 1 or 2 09/23/2022 Q3: How often do you have si x or more drinks on one occasion? Never 09/23/2022 Overall Financial Resource Strain (CARDIA) Answe r Date Recorded How hard is it for you to pa y for the very basics like food, housing, medical care, and heating? Not very hard 09/23/2022 [facility] - Occupational Stress Questionnaire Answer Date Recorded Do you feel stress - tense, restless, nervous, or anxious, or unable to sleep at night because your mind is troubled all the time - these days? Not at all 09/23/2022 Exercise Vital Sign Answer Date Recorde d On average, how many days pe r week do you engage in moderate to strenuous exercise (like a brisk walk)? 2 days 09/23/2022 On average, how many minutes do you engage in exercise at this level? 30 min 09/23/2022 Hunger Vital Sign Answer Date Recorded Within the past 12 months, y ou worried that your food would run out before you got the money to buy more. Never true 09/24/19 Within the past 12 months, t he food you bought just didn't last and you didn't have money to get more. Never true 09/23/2022 PRAPARE - Transportation Answer Date Re corded In the past 12 months, has l ack of transportation kept you from medical appointments or from getting medications? No 09/07 In the past 12 months, has l ack of transportation kept you from meetings, work, or from getting things needed for daily living? No 09/23/2022 Housing Stability Vital Sign Answer George e Recorded In the last 12 months, was t here a time when you were not able to pay the mortgage or rent on time? No 09/23/2022 In the last 12 months, how many places have you lived? 1 09/23/2022 In the last 12 months, was t here a time when you did not have a steady place to sleep or slept in a mcfp (including now)? No 09/23/2022 Nutrition Answer Date Recorded Nutrition: EVOO Fat Source Yes 09/23 On average, how many serving s of fruits and vegetables do you eat per day (serving size is equal to 1 cup or approximately the size of a tennis ball)? 2-3 09/23/2022 Dental Answer Date Recorded Dental: Regular Dentist Yes 09/24/19 Employment Answer Date Recorded Employment status Employed and actively working without restrictions 09/23/2022 Education Answer Date Recorded What is the highest level of school you have completed or the highest degree you have received? 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 Oxygen Saturation - - Inhaled Oxygen Concentration - - Weight 82.7 kg (182 lb 5.1 oz) 11/29/2015 3:24 P M CDT Height 172.2 cm (5' 7.8) 11/02/2015 1:49 PM CDT Body Mass Index 27.89 11/02/2015 1:49 PM CDT Plan of Treatment Health Maintenance Due Date Last Done Comments CT Colonography 1968 Cologuard 1968 Colonoscopy 1968 Colorectal Cancer Screening 1968 FIT 1968 Hepatitis B Vaccines (1 of 3 - 19+ 3-dose series) 10/11/1987 Mammogram 12/06/2014 12/06/2013, 12/09/2012 Cervical Cancer Screening 12/02/2017 12/02/2012 Zoster Vaccines (1 of 2) 2018 Fasting Glucose for Diabetes Screening 11/02/2018 11/03/2015, 05/11/2015, 05/11/2015, Additional history exists Lipid (Cholesterol) Screening 11/02/2020 11/03/2015, 12/02/2012 COVID-19 Vaccine (3 - season) 2023 02/16/2021, 01/26/2021 Influenza Vaccine (#1) 2023 2, 03/22/2020, 03/29/2015, Additional history exists Depression Screening (Annual PHQ-2) 06/09/2023 DTaP,Tdap,and Td Vaccines (2 - Td or Tdap) 02/09/2025 02/09/2015, 08/07/2009 HIV Screening Completed 11/02/2014 Pneumococcal vaccine (0-64 years) Aged Out No longer eligible based on patient's age to complete this topic Procedures Procedure Name Priority Date/Time Associated Diagnosis Comments GLUCOSE, FASTING, S/P Routine 11/03/2015 7:45 AM CDT LIPID PANEL, S Routine 11/03/2015 7:45 AM CDT HIV-1/-2 AG AND AB SCREEN Routine 11/02/2014 12:54 PM CDT BI BREAST SCREENING BILATERAL Routine 12/06/2013 12:39 PM CDT PATHOLOGY TRIAL MANAGER CYTOLOGY Routine 12/02/2012 5:08 PM CDT from Last 3 Months or Most Recently Relevant to Health Maintenance Results * (ABNORMAL) Lipid Panel (11/03/2015 7:45 AM CDT) Cholesterol, Total 239(H) SeeComment MG/DL [facility] Comment: ? REFERENCE VALUE ? Desirable: < 200 ? Borderline high: 200 - 239 ? High: > or = 240 ? Triglycerides 158(H) SeeComment MG/DL [facility] Comment: ? REFERENCE VALUE ? Normal: <150 ? Borderline high: 150-199 ? High: 200-499 ? Very high: > or =500 ? Cholesterol, Non-HDL, Calculated 185(H) SeeComment MG/DL [facility] Comment: ? REFERENCE VALUE ? Desirable: <130 ? Above Desirable: 130-159 ? Borderline high: 160-189 ? High: 190-219 ? Very high: > or =220 ? Cholesterol, HDL, S 54 >=50 MG/DL [facility] Calculated LDL 153(H) SeeComment MG/DL [facility] Comment: ? REFERENCE VALUE ? Desirable: <100 ? Above Desirable: 100-129 ? Borderline high: 130-159 ? High: 160-189 ? Very high: > or =190 ? 11/03/2015 7:45 AM CDT 11/03/2015 7:45 AM CDT Jane Lawrence M.D. LAB BLOOD ADD-ON Performing Organization Address [facility] de Phone Number [facility] [address] * Glucose, Fasting (11/03/2015 7:45 AM CDT) Pathologist [facility] Last Intake 14 HR [facility] Glucose, P 93 70 - 100 MG/DL [facility] 11/03/2015 7:45 AM CDT 11/03/2015 7:45 AM CDT Jane Lawrence M.D. LAB BLOOD NON ADD-ON Performing Organization Address City/[facility] de Phone Number [facility] [address] * HIV-1/-2 Ag and Ab Screen (11/02/2014 12:54 PM CDT) HIV-1/-2 Ag and Ab Screen, S Negative Negative [facility] Comment: Negative result does not rule out HIV infection. If ? acute HIV infection is suspected in a high-risk ? individual, submit plasma specimen for HIV-1 RNA ? quantification test (HIVQU) and/or HIV-2 DNA/RNA ? test (FHV2Q). ? 11/02/2014 12:5 4 PM CDT 11/02/2014 12:54 PM CDT Yuki Wilkinson APRN, CNM LAB MICROBIOLOG Y - BLOOD ORDERABLES Performing Organization Address City/State/[facility] Co de Phone Number [facility] [address] [place] [address], [facility] * BI Breast Screening Bilateral (12/06/2013 12:39 PM CDT) Anatomical Region Laterality Modality Breast Bilateral Mammography 12/06/2013 12:3 9 PM CDT Impressions 12/06/2013 1:26 PM CDT NEGATIVE There is no mammographic evidence of malignancy. ?? RECOMMENDATION: A 1 year screening mammogram is recommended. ?? The patient will receive a letter notifying her of the results. ?? Lisa Benites M.D. ? alc/penrad:12/06/2013 13:25:55 ?? letter sent: 1S/2S - Negative Screen ?? Mammogram BI-RADS: 1 Negative Electronically signed by: ?? Tammy Benites MD [id number] 06-Dec-2013 13:26 Narrative 12/06/2013 1:26 PM CDT 06-Dec-2013 12:39:00 ??Exam: Mammo Screen Bilat Indications: Screening Mammogram Breast Ca ORIGINAL REPORT - 06-Dec-2013 13:26:00 EXAM: BILATERAL DIGITAL SCREENING MAMMOGRAM WITH CAD: 12/06/2013 HISTORY/INDICATION: Screening Mammogram Breast Ca. ?? Current study was also evaluated with a Computer Aided Detection (CAD) system. ?? COMPARISON: ??Comparison is made to prior exams. ?? DENSITY: ??(D3) The tissue of both breasts is heterogeneously dense, ?? which could obscure detection of small masses. FINDINGS: ??No significant masses, calcifications, or other findings ?? are seen in either breast. ?? There has been no significant interval change. Procedure Note Lisa Benites M.D. - 09/05/2017 06-Dec-2013 12:39:00 Exam: Mammo Screen Bilat Indications: Screening Mammogram Breast Ca ORIGINAL REPORT - 06-Dec-2013 13:26:00 EXAM: BILATERAL DIGITAL SCREENING MAMMOGRAM WITH CAD: 12/06/2013 HISTORY/INDICATION: Screening Mammogram Breast Ca. Current study was also evaluated with a Computer Aided Detection (CAD) system. COMPARISON: Comparison is made to prior exams. DENSITY: (D3) The tissue of both breasts is heterogeneously dense, which could obscure detection of small masses. FINDINGS: No significant masses, calcifications, or other findings are seen in either breast. There has been no significant interval change. IMPRESSION: NEGATIVE There is no mammographic evidence of malignancy. RECOMMENDATION: A 1 year screening mammogram is recommended. The patient will receive a letter notifying her of the results. Lisa Benites M.D., alc/ivania:12/06/2013 13:25:55 letter sent: 1S/2S - Negative Screen Mammogram BI-RADS: 1 Negative Electronically signed by: Tammy Benites MD [id number] 06-Dec-2013 13:26 Stephen Aguirre M.D., M.P.H. IMG BI PROCE DURES * Pathology TRIAL MANAGER Cytology (12/02/2012 5:08 PM CDT) 12/02/2012 5:08 PM CDT 12/02/2012 5:08 PM CDT Narrative [facility] - 12/02/2012 5:08 PM CDT ??12/02/2012 Cytology Gynecological ?([id number]) ? Requested By:Charlotte King, PSandeep. ??[phone] ?DIAGNOSIS: A. ??ThinPrep Pap Test Screen (Cervical/Endocervical HPV >= 30 years old): ?Satisfactory for evaluation. ?Negative for intraepithelial lesion or malignancy. ?HPV testing was performed by [employer] Hybrid [employer] and is negative for HPV types 16,18,31,33,35,39,45,51,52,56,58,59 and 68. ? Report electronically signed by Alexander Virk, [facility](ASCP) ?? 12/04/2012 16:01 Interpreted by: YVON Carney(ASCP) ?? SPECIMEN DESCRIPTION: A. ??ThinPrep Pap Test Screen (Cervical/Endocervical HPV >= 30 years old): ??Received cloudy specimen in ThinPrep vial. ?? Procedure Note 09/03/2017 12/02/2012 Cytology Gynecological ([id number]) Requested By:Charlotte King, P.A. [phone] DIAGNOSIS: A. ThinPrep Pap Test Screen (Cervical/Endocervical HPV >= 30 years old): Satisfactory for evaluation. Negative for intraepithelial lesion or malignancy. HPV testing was performed by [employer] and is negative for HPV types 16,18,31,33,35,39,45,51,52,56,58,59 and 68. Report electronically signed by HARVEY Schwartz(ASCP) 12/04/2012 16:01 Interpreted by: YVON Carney(ASCP) SPECIMEN DESCRIPTION: A. ThinPrep Pap Test Screen (Cervical/Endocervical HPV >= 30 years old): Received cloudy specimen in ThinPrep vial. Charlotte King P.A.-C., P.A. VANESA MILLER ORDERABLES [facility] [address] [place] [address], [facility] from Last 3 Months or Most Recently Relevant to Health Maintenance Care Teams Lawn Service Supervisor Relationship Specialty Start Date End Date Elsewhere, Pcp PCP - General 09/07/21
--- OUTSIDE RECORDS SUMMARY | 2023-11-07 07:47 | XMS_ITS | Patient Health Record ---
Author Organization [facility] Address [address] [place] [address] Care Team Providers Care Heavy Line Technician Name Role Phone None, No PCP Primary Care Provider Unavailcar brewster Rebeca Delgado Unavailable [phone] Shannan Villagran Unavailable [phone] Jackelyn Jaeger Unavailable [phone] George Johnson Unavailable [phone] Allergies Allergen (clinical drug ingredient) Drug/Non Drug Allergy documented on EMR Reaction Allergy Type Onset Date Status amoxicillin Amoxicillin hives Drug Allergy Act keith Results Component Value Reference Range Notes TESTOSTERONE, FREE Reviewed date:01/29/2023 07:39:04 PM Interpretation: Performing Lab:Z3Vladislav, [facility] [address], [address] HospitalQdchwsminuGG[address] Meliton Mar MD Notes/Report: TESTOSTERONE, FREE 1.6 0.2-5.0 pg/mL Meliton Mar MD (Note) The concentration of free testosterone is derived from a mathematical model using total testosterone by LCMSMS, sex hormone binding globulin and albumin. This test was developed and its analytical performance characteristics have been determined by [facility]. It has not been cleared or approved by the FDA. This assay has been validated pursuant to the CLIA regulations and is used for clinical purposes. DORIS med [facility] [address] [facility] [address] [facility] [address] TESTOSTERONE, TOTAL, LC/MS/M S Reviewed date:01/29/2023 07:39:04 PM Interpretation: Performing Lab:Z3E, [facility]-[address] [address], [address] HospitalKyymsepzxjXE[address] Meliton Mar MD Notes/Report: TESTOSTERONE, TOTAL, MS 22 2-45 ng/dL For additional information, please refer to [email or web address].[employer]/faq/TotalTestosteroneLC MSMS (This link is being provided for informational/educational purposes only.) (Note) This test was developed and its analytical performance characteristics have been determined by [facility]. It has not been cleared or approved by the FDA. This assay has been validated pursuant to the CLIA regulations and is used for clinical purposes. MDF [facility] [address] [address],[address] [facility] [address] Meliton Mar MD SEX HORMONE BINDING GLOBULIN Reviewed date:01/29/2023 07:39:04 PM Interpretation: Performing Lab:VINNIE [facility] [address], [place] UbteTP[address] Omar Wade Notes/Report: SEX HORMONE BINDING GLOBULIN 68 17-124 nmol/ L VITAMIN D,25-OH,TOTAL,IA Reviewed date:01/29/2023 07:39:04 PM Interpretation: Performing Lab:VINNIE [facility] [address], [place] DosrOK[address] Omar Wade Notes/Report: VITAMIN D,25-OH,TOTAL,IA 38 30-100 ng/mL For 25-OH Vitamin D testing on patients on D2-supplementation and patients for whom quantitation of D2 and D3 fractions is required, the QuestAssureD(TM) 25-OH VIT D, (D2,D3), LC/MS/MS is recommended: order code 93054 (patients >2yrs). See Note 1 Note 1 For additional information, please refer to http://education.yuback.[employer]/faq/AJK318 (This link is being provided for informational/ educational purposes only.) Vitamin D Status 25-OH Vitamin D: Deficiency: <20 ng/mL Insufficiency: 20 - 29 ng/mL Optimal: > or = 30 ng/mL TSH Reviewed date:01/29/2023 07:39:04 PM Interpretation: Performing Lab:VINNIE [facility] [address], [place] EetkDF[address] Omar Wade Notes/Report: TSH 3.19 Reference Range > or = 20 Years 0.40-4.50 Ranges First trimester 0.26-2.66 Second trimester 0.55-2.73 Third trimester 0.43-2.91 CORTISOL, TOTAL Reviewed date:01/29/2023 07:39:04 PM Interpretation: Performing Lab:[facility]re [place], [place] GeorgeLokoVV[address] Omar Wade Notes/Report: CORTISOL, TOTAL 5.3 Reference Range: For 8 a.m.(7-9 a.m.) Specimen: 4.0-22.0 Reference Range: For 4 p.m.(3-5 p.m.) Specimen: 3.0-17.0 * Please interpret above results accordingly * PROLACTIN Reviewed date:01/29/2023 07:39:04 PM Interpretation: Performing Lab:[facility] [place] [facility]-[address], [place] GeorgeJgnkWV[address] Omar Wade Notes/Report: PROLACTIN 7.4 Reference Range Females Non- 3.0-30.0 10.0-209.0 Postmenopausal 2.0-20.0 LH Reviewed date:01/29/2023 07:39:04 PM Interpretation: Performing Lab:[facility] [address], [place] GeorgeWifcYK[address] Omar Wade Notes/Report: LH 27.0 Follicular Phase 1.9-12.5 Mid-Cycle Peak 8.7-76.3 Luteal Phase 0.5-16.9 Postmenopausal 10.0-54.7 Reference Range FSH Reviewed date:01/29/2023 07:39:04 PM Interpretation: Performing Lab:[facility] [place] [facility]-[address], [place] TlugKY[address] Omar Wade Notes/Report: FSH 35.1 Reference Range Follicular Phase 2.5-10.2 Mid-cycle Peak 3.1-17.7 Luteal Phase 1.5- 9.1 Postmenopausal 23.0-116.3 DHEA SULFATE Reviewed date:01/29/2023 07:39:04 PM Interpretation: Performing Lab:[place] [facility]-[address], [place] BfwqOB[address] Omar Wade Notes/Report: DHEA SULFATE 95 5-167 mcg/dL DHEA-S values fall with advancing age. For reference, the reference intervals for 31-40 year old patients are: Male: 93-415 mcg/dL Female: 19-237 mcg/dL ESTRADIOL Reviewed date:01/29/2023 07:39:04 PM Interpretation: Performing Lab:VINNIE [facility] [address] reddyIqhmPL[address] Omar Wade Notes/Report: ESTRADIOL 69 Reference Range Follicular Phase: 19-144 Mid-Cycle: 64-357 Luteal Phase: 56-214 Postmenopausal: < or = 31 Reference range established on post-pubertal patient population. No pre-pubertal reference range established using this assay. For any patients for whom low Estradiol levels are anticipated (e.g. males, pre-pubertal children and hypogonadal/post-menopausal females), the [facility] Estradiol, Ultrasensitive, LCMSMS assay is recommended (order code 13783). Please note: patients being treated with the drug fulvestrant (Faslodex(R)) have demonstrated significant interference in immunoassay methods for estradiol measurement. The cross reactivity could lead to falsely elevated estradiol test results leading to an inappropriate clinical assessment of estrogen status. [facility] order code 13605-Bjbsjhnpd, Ultrasensitive LC/MS/MS demonstrates negligible cross reactivity with fulvestrant. Sensitive Estradiol (IH) Reviewed date:10/02/2023 12:24:52 PM Interpretation: Performing Lab: Notes/Report: Access 2 ([id number])Chaka Testosterone, Total (IH) Reviewed date:10/02/2023 12:24:52 PM Interpretation: Performing Lab: Notes/Report: Access 2 ([id number])Chaka FSH (IH) Reviewed date:10/02/2023 12:24:52 PM Interpretation: Performing Lab: Notes/Report: Natalia 2 ([id number])Chaka Test, Urine Reviewed date:07/22/2023 03:52:25 PM Interpretation: Performing Lab: Notes/Report: Test, Urine Negative Negative - Test, Urine Reviewed date:04/03/2023 06:32:15 AM Interpretation:Negative Performing Lab: Notes/Report: Negative Test, Urine Negative Negative - Test, Urine Reviewed date:07/07/2023 08:16:49 AM Interpretation: Performing Lab: Notes/Report: Test, Urine Negative Negative - Sensitive Estradiol (IH) Reviewed date:07/03/2023 03:23:17 PM Interpretation: Performing Lab: Notes/Report: Access 2 ([id number]), Access 2 [facility] Testosterone, Total (IH) Reviewed date:07/01/2023 01:22:17 PM Interpretation: Performing Lab: Notes/Report: Access 2 ([id number]), Access 2 [facility] FSH (IH) Reviewed date:07/03/2023 03:23:17 PM Interpretation: Performing Lab: Notes/Report: Access 2 ([id number]), Access 2 [facility] TESTOSTERONE, TOTAL, LC/MS/M S Reviewed date:03/17/2023 02:16:14 PM Interpretation: Performing Lab:Jose [facility] [address], [address] HospitalPqnqcgrionIW[address] Meliton Mar MD Notes/Report: 0; 0; 0 TESTOSTERONE, TOTAL, MS 109 2-45 ng/dL For additional information, please refer to https://education.[employer]/faq/TotalTestosteroneLC MSMS (This link is being provided for informational/educational purposes only.) (Note) This test was developed and its analytical performance characteristics have been determined by [facility]. It has not been cleared or approved by the FDA. This assay has been validated pursuant to the CLIA regulations and is used for clinical purposes. DORIS [facility] [address] [address],[address] [facility] [address] Meliton Mar MD FSH Reviewed date:03/12/2023 12:18:49 PM Interpretation: Performing Lab:[facility]re [place] [facility]-[place] [address], [place] PwtdMN[address] Omar Wade Notes/Report: 0; 0; 0 FSH 8.5 Reference Range Follicular Phase 2.5-10.2 Mid-cycle Peak 3.1-17.7 Luteal Phase 1.5- 9.1 Postmenopausal 23.0-116.3 ESTRADIOL Reviewed date:03/12/2023 12:13:59 PM Interpretation: Performing Lab:[facility] [place], [place] UvkmVW[address] Omar Romeo Wade Notes/Report: 0; 0; 0 ESTRADIOL 83 Reference Range Follicular Phase: 19-144 Mid-Cycle: 64-357 Luteal Phase: 56-214 Postmenopausal: < or = 31 Reference range established on post-pubertal patient population. No pre-pubertal reference range established using this assay. For any patients for whom low Estradiol levels are anticipated (e.g. males, pre-pubertal children and hypogonadal/post-menopausal females), the [facility] Estradiol, Ultrasensitive, LCMSMS assay is recommended (order code 43258). Please note: patients being treated with the drug fulvestrant (Faslodex(R)) have demonstrated significant interference in immunoassay methods for estradiol measurement. The cross reactivity could lead to falsely elevated estradiol test results leading to an inappropriate clinical assessment of estrogen status. [facility] order code 06532-Pclkxrqiv, Ultrasensitive LC/MS/MS demonstrates negligible cross reactivity with fulvestrant. Reason For Referral No Information Medications Medication SIG (Take, Route, Frequency, Duration) Notes Start Date End Date Status Testosterone pellets Active Phentermine HCl 37.5 MG TAKE ONE TABLET BY MOUTH EVERY DAY 30 MINUTES BEFORE OR 1-2 HOURS AFTER BREAKFAST Oral for 90 Days Activ e Progesterone 200 MG 1 capsule at bedtime Orally Once a day for 90 days 01/29/2023 Active Social History Tobacco Use: Social History Observation Description Date Details (start date - stop date) Never Smoker NA - NA Tobacco Use/Smoking Question Answer Notes Are you [...] Never (0 point) Points 2 Interpretation Negative Problems Problem Type SNOMED Code ICD Code Onset Dates Problem Status W/U Status Risk Notes Problem Menopause (684897439) Menopausal and female climacteric states (N95.1) Active confirmed Problem Menopausal and postmenopausal disorders (914639857) Unspecified menopausal and perimenopausal disorder (N95.9) Active confirmed Problem Menopausal and postmenopausal disorders (866533801) Menopausal and perimenopausal disorder (N95.9) Active confirmed Problem Menopause (909122440) Climacteric (N95.1) Active confirmed Problem Menopausal and postmenopausal disorders (154533244) Menopausal disorder (N95.9) Active confirmed Problem Pre-procedure evaluation check (865476581) Pre-procedural examination (Z01.818) Active confirmed Vital Signs Blood pressure diastolic 66 mm Hg 10/06/2023 Height 68 in 10/06/2023 Blood pressure systolic 126 mm Hg 10/06/2023 Weight 194.3 lbs 10/06/2023 BMI 29.54 kg/m2 10/06/2023 Encounters Encounter Location Date Provider Diagnosis [facility] [address] [place] [address] 01/28/2023 [facility] Menopausal and perimenopausal disorder N95.9 [facility] [address] [place] [address] 01/29/2023 [facility] Encounter for pre-operative laboratory testing Z01.812 ; Menopausal and perimenopausal disorder N95.9 and Unspecified menopausal and perimenopausal disorder N95.9 [facility] [address] [place] [address] 04/14/2023 George Johnson Menopausal and perimenopausal disorder N95.9 [facility] [address] [place] [address] 07/07/2023 George Johnson Encounter for pre-operative laboratory testing Z01.812 and Menopausal and perimenopausal disorder N95.9 [facility] [address] [place] [address] 10/06/2023 George Johnson Menopausal and perimenopausal disorder N95.9 [facility] [address] [place] [address] 01/21/2023 [facility] [address] [place] [address] 01/21/2023 [facility] Menopausal disorder N95.9 [facility] [address] [place] [address] 02/28/2023 [facility] Climacteric N95.1 [facility] [address] [facility] [place] [address] 03/11/2023 Shannan Villagran Climacteric N95.1 [facility] [address] [place] [address] 04/14/2023 George Johnson Pre-procedural examination Z01.818 [facility] [address] [place] [address] 06/30/2023 George Johnson Menopausal and femal e climacteric states N95.1 [facility] [address] [place] [address] 09/30/2023 George Johnson Menopausal and femal e climacteric states N95.1 [facility] [address] [place] [address] 01/21/2023 [facility] Menopausal and perimenopausal disorder N95.9 [facility] [place] [address] [place] [address] [place] [address] 03/19/2023 Jackelyn Jaeger Menopausal and perimenopausal disorder N95.[address] [place] [address] 01/28/[address] [place] [address] 02/04/[address] [place] [address] 04/30/2023 George Johnson Menopausal and perimenopausal disorder N95.9 [facility] [address] [place] [address] 10/23/2023 George Johnson Assessments Encounter Date Diagnosis (ICD Code) Assessment Notes Treatment Notes Treatment Clinical Notes 01/29/2023 Encounter for pre-operative laboratory testing (ICD-10 [...] 1-2 weeks for pellet insert at the [facility]. 04/14/2023 Pre-procedural examination (ICD-10 - Z01.818) 04/14/2023 Menopausal and perimenopausal disorder (ICD-10 - N95.9) 04/30/2023 Menopausal and perimenopausal disorder (ICD-10 - N95.9) 06/30/2023 Menopausal and female climacteric states (ICD-10 - N95.1) 07/07/2023 Menopausal and perimenopausal disorder (ICD-10 - N95.9) 07/07/2023 Encounter for pre-operative laboratory testing (ICD-10 - Z01.812) 09/30/2023 Menopausal and female climacteric states (ICD-10 - N95.1) 10/06/2023 Menopausal and perimenopausal disorder (ICD-10 - N95.9) 01/21/2023 Menopausal disorder (ICD-10 - N95.9) 01/21/2023 [...] care. Total time was 30 minutes. 01/29/2023 Menopausal and perimenopausal disorder (ICD-10 - [...] for virtual visit was obtained. [place] [facility] [place] site: [...] for virtual visit was obtained. Originating site: [facility] location Distant site: pt home Start [...] needed before next insertion if any concerns 07/07/2023 Other -HRT pellet inserted as documented above [...] needed before next insertion if any concerns 10/06/2023 Other -HRT pellet inserted as documented above [...] needed before next insertion if any concerns Plan Of Treatment Next Appt Details Provider Name:George Johnson, 11/20/2023 03:00:00 PM, [address] [place], [address], Provider Name:George Johnson, 11/20/2023 03:30:00 PM, [address], [place], [address], Provider Name:George Johnson, 12/24/2023 08:30:00 AM, [address], [place], [address], Provider Name:George Johnson, 01/08/2024 08:30:00 AM, [address], [place], [address], Insurance Providers Payer Name Payer Address Payer Phone Subscriber Number Group Number Insured Name Patient Relationship to Insured Coverage Start Date Coverage End Date [facility] Commercial (Ins. Bill) [address] [address] [place], [place] [phone] [id number] Temitope Galvez Self - patient is the insured Medical (General) History Medical History History ICD Code hyperlipidemia Pneumonia thyroid problem - possibly hypothyroidis m
--- OUTSIDE RECORDS SUMMARY | 2023-11-07 07:47 | XMS_ITS | Encounter Summary ---
Author Organization [facility] Address [address] [place] [address] Care Team Providers Care Director Of Psychology Name Role Phone Elsewhere, Pcp Primary Care Provider Unavailabl e Encounter Details Date Type Department Care Team (Late st Contact Info) Description 01/05/2013 Historical Ophthalmology RST OPH Laura Foster M.D. [address] [facility] [address] [place] [address] Social History Tobacco Use Types Packs/Day Years Used Date Smoking Tobacco: Never Assessed Sex and Gender Information Value Date Recorded Sex Assigned at Not on file Gender Identity Female 09/23/2022 2:38 PM CDT Sexual Orientation Straight 09/23/2022 2: 38 PM CDT documented as of this encounter Progress Notes * Laura Foster M.D. - 01/05/2013 12:51 PM CDT Eye General CHIEF COMPLAINT Recheck left eye for ulcer. HISTORY OF PRESENT ILLNESS Wearing glasses only. Vision is ok. No eye pain. Drops put in at 7am. EAA: Eye has been feeling pretty good but still gets red and irritated. Still putting drops in twice a day. IMPRESSION / REPORT / PLAN #1 Corneal ulcer, left eye Healed. Faint scar out of visual axis. Done with vigamox. Continue using artificial tears. Staying out of contacts for at least 1 month. Follow up with us as needed. Consider following up with primary OD for daily wear contact lenses in 1 month. Patient noted understanding #2 Contact lens overuse Hygiene reportedly very good. Explained etiology of issue and prevention techniques. Advised on peroxide washes, possible daily lenses, avoiding overwear. Staying out of contacts for at least the next 3 weeks. DIAGNOSIS #1 Corneal ulcer, left eye #2 Contact lens overuse CDM Reports - EYEGEN Id: [id number] Status: Fnl documented in this encounter Plan of Treatment Not on file documented as of this encounter Visit Diagnoses Not on filedocumented in this encounter Additional Health Concerns Assessment Noted Time PHQ-9 Depression Total Score: 7 12/03/19 13 11:39 AM CDT documented as of this encounter Care Teams Director Of Psychology Relationship Specialty Start Date End Date Elsewhere, Pcp PCP - General 09/07/21 documented as of this encounter
--- OUTSIDE RECORDS SUMMARY | 2023-11-07 07:47 | XMS_ITS | Encounter Summary ---
Author Organization [facility] Address [address] [place] [address] Care Team Providers Care Oven Dumper Name Role Phone Elsewhere, Pcp Primary Care Provider Unavailabl e Encounter Details Date Type Department Care Team (Late st Contact Info) Description 12/24/2012 Historical Ophthalmology [facility]ST O[facility] Laura Foster M.D. [address] [facility] [address] [place] [address] Social History Tobacco Use Types Packs/Day Years Used Date Smoking Tobacco: Never Assessed Sex and Gender Information Value Date Recorded Sex Assigned at Not on file Gender Identity Female 09/23/2022 2:38 PM CDT Sexual Orientation Straight 09/23/2022 2: 38 PM CDT documented as of this encounter Progress Notes * Laura Foster M.D. - 12/24/2012 12:47 PM CDT Eye General CHIEF COMPLAINT corneal ulcer HISTORY OF PRESENT ILLNESS Patient notes that things are going much better. Don't notice the ache any more. Has been using the Vigamox drops every hour. EAA: Has been doing the vigamox drops every hour. No pain in left eye. No problem with drops. Foreign body sensation gone. No ache IMPRESSION / REPORT / PLAN #1 Corneal ulcer, left eye Healing well. Syptomatically better. Decreased vigamox to QID. Encouraged liberal artifical tears at least QID. Staying out of contacts. Follow up in clinic on Friday, sooner prn worsening symptoms. Patient noted understanding #2 Contact lens overuse Hygiene reportedly very good. Explained etiology of issue and prevention techniques. Advised on peroxide washes, possible daily lenses, avoiding overwear. Staying out of contacts for at least the next month. DIAGNOSIS #1 Corneal ulcer, left eye #2 Contact lens overuse CDM Reports - EYEGEN Id: [id number] Status: Fnl documented in this encounter Plan of Treatment Not on file documented as of this encounter Visit Diagnoses Not on filedocumented in this encounter Additional Health Concerns Assessment Noted Time PHQ-9 Depression Total Score: 7 12/03/19 13 11:39 AM CDT documented as of this encounter Care Teams Oven Dumper Relationship Specialty Start Date End Date Elsewhere, Pcp PCP - General 09/07/21 documented as of this encounter
--- OUTSIDE RECORDS SUMMARY | 2023-11-07 07:47 | XMS_ITS ---
Author Organization [facility] Address [address] [place] [address] Care Team Providers Care Commercial Relief Driver Name Role Phone Unavailable Unavailable Unavailable Surgery Details Not on file Complications Check Surgery Details section. Procedure Estimated Blood Loss Check Surgery Details section. Procedure Findings Check Surgery Details section. Procedure Specimens Taken Check Surgery Details section.
--- OUTSIDE RECORDS SUMMARY | 2023-11-07 07:47 | XMS_ITS | Referral Summary ---
Author Organization [facility] Address [address] [place] [address] Care Team Providers Care Ed Teacher Name Role Phone Elsewhere, Pcp Primary Care Provider Unavailabl e Source Comments Patient records contain information from all sites at [facility]. For routine questions regarding patient records, call [phone] during business hours, M-F 8:00 AM - 5:00 PM Central Time. Record requests for emergency care only can be directed to [phone] at any time.[facility] Allergies Active Allergy Reactions Criticality Noted Date [...] How often do you attend chur or mormon services? More than 4 times per year 09/23/2022 Do you belong to any clubs o r organizations such as sikhism groups, unions, fraternal or athletic groups, or [...] care, and heating? Not very hard 09/23/2022 [facility] - Occupational Stress [...] place to sleep or slept in a long-term (including now)? No 09/23/2022 Nutrition Answer Date [...] - Respiratory Rate 18 05/12/2015 8:51 AM APPLICATION INFRASTRUCTURE ENGINEER Oxygen Saturation - - Inhaled Oxygen Concentration - - Weight 82.7 kg (182 lb 5.1 oz) 11/29/2015 3:24 P M CDT Height 172.2 cm (5' 7.8) 11/02/2015 1:49 PM CDT Body Mass Index 27.89 11/02/2015 1:49 PM CDT Plan of Treatment Not on file Procedures Procedure Name Priority Date/Time Associated Diagnosis Comments GLUCOSE, FASTING, S/P Routine 11/03/2015 7:45 AM CDT LIPID PANEL, S Routine 11/03/2015 7:45 AM CDT HIV-1/-2 AG AND AB SCREEN Routine 11/02/2014 12:54 PM CDT BI BREAST SCREENING BILATERAL Routine 12/06/2013 12:39 PM CDT PATHOLOGY TESTING COORDINATOR CYTOLOGY Routine 12/02/2012 5:08 PM CDT from Last 3 Months or Most Recently Relevant to Health Maintenance Results * (ABNORMAL) Lipid Panel (11/03/2015 7:45 AM CDT) Cholesterol, Total 239(H) SeeComment MG/DL [facility] Comment: ? REFERENCE VALUE ? Desirable: < 200 ? Borderline high: 200 - 239 ? High: > or = 240 ? Triglycerides 158(H) SeeComment MG/DL [facility] Comment: ? REFERENCE VALUE ? Normal: <150 ? Borderline high: 150-199 ? High: 200-499 ? Very high: > or =500 ? Cholesterol, Non-HDL, Calculated 185(H) SeeComment MG/DL [facility] Comment: ? REFERENCE VALUE ? Desirable: <130 ? Above Desirable: 130-159 ? Borderline high: 160-189 ? High: 190-219 ? Very high: > or =220 ? Cholesterol, HDL, S 54 >=50 MG/DL [facility] Calculated LDL 153(H) SeeComment MG/DL [facility] Comment: ? REFERENCE VALUE ? Desirable: <100 ? Above Desirable: 100-129 ? Borderline high: 130-159 ? High: 160-189 ? Very high: > or =190 ? 11/03/2015 7:45 AM CDT 11/03/2015 7:45 AM CDT Jane Lawrence M.D. LAB BLOOD ADD-ON [facility] [address] * Glucose, Fasting (11/03/2015 7:45 AM CDT) Pathologist [facility] Last Intake 14 HR [facility] Glucose, P 93 70 - 100 MG/DL [facility] 11/03/2015 7:45 AM CDT 11/03/2015 7:45 AM CDT Jane Lawrence M.D. LAB BLOOD NON ADD-ON [facility] [address] * HIV-1/-2 Ag and Ab Screen (11/02/2014 12:54 PM CDT) [facility] HIV-1/-2 Ag and Ab Screen, S Negative Negative [facility] Comment: Negative result does not rule out HIV infection. If ? acute HIV infection is suspected in a high-risk ? individual, submit plasma specimen for HIV-1 RNA ? quantification test (HIVQU) and/or HIV-2 DNA/RNA ? test (FHV2Q). ? 11/02/2014 12:5 4 PM CDT 11/02/2014 12:54 PM CDT Yuki Wilkinson APRN, CNM LAB MICROBIOLOG Y - BLOOD ORDERABLES Performing Organization Address [facility]/State/[facility] Co de Phone Number [facility] [address] * BI Breast Screening Bilateral (12/06/2013 12:39 [...] Electronically signed by: ?? Tammy Benites MD [id number] 06-Dec-2013 13:26 Narrative 12/06/2013 1:26 PM CDT [...] notifying her of the results. Lisa Benites M.D. alc/penrad:12/06/2013 13:25:55 letter sent: 1S/2S - Negative Screen Mammogram BI-RADS: 1 Negative Electronically signed by: Tammy Benites MD [id number] 06-Dec-2013 13:26 Stephen Aguirre M.D., M.P.H. [facility] [place] * Pathology TESTING COORDINATOR Cytology (12/02/2012 5:08 PM CDT) 12/02/2012 5:08 PM CDT 12/02/2012 5:08 PM CDT Narrative [facility] - 12/02/2012 5:08 PM CDT ??12/02/2012 Cytology Gynecological ?([id number]) ? Requested By:Charlotte King P.A. ??[phone] ?DIAGNOSIS: A. ??ThinPrep Pap Test Screen (Cervical/Endocervical HPV >= 30 years old): ?Satisfactory for evaluation. ?Negative for intraepithelial lesion or malignancy. ?HPV testing was performed by [employer] and is negative for HPV types 16,18,31,33,35,39,45,51,52,56,58,59 and 68. ? Report electronically signed by Alexnader Virk [facility](ASCP) ?? 12/04/2012 16:01 Interpreted by: YVON Carney(ASCP) ?? SPECIMEN DESCRIPTION: A. ??ThinPrep Pap Test Screen (Cervical/Endocervical HPV >= 30 years old): ??Received cloudy specimen in ThinPrep vial. ?? Procedure Note 09/03/2017 12/02/2012 Cytology Gynecological ([id number]) Requested By:Charlotte King, P.A. [id number] DIAGNOSIS: A. ThinPrep Pap Test Screen (Cervical/Endocervical HPV >= 30 years old): Satisfactory for evaluation. Negative for intraepithelial lesion or malignancy. HPV testing was performed by [employer]ure II and is negative for HPV types 16,18,31,33,35,39,45,51,52,56,58,59 and 68. Report electronically signed by Alexander Virk [facility](ASCP) 12/04/2012 16:01 Interpreted by: YVON Carney(ASCP) SPECIMEN DESCRIPTION: A. ThinPrep Pap Test Screen (Cervical/Endocervical HPV >= 30 years old): Received cloudy specimen in ThinPrep vial. Charlotte King P.A.-C., P.A. LAB PA P COPATH ORDERABLES [facility] [address] [place] [id number], [facility] from Last 3 Months or Most Recently Relevant to Health Maintenance Care Teams Ed Teacher Relationship Specialty Start Date End Date Elsewhere, Pcp PCP - General 09/07/21
--- OUTSIDE RECORDS SUMMARY | 2023-11-07 07:47 | XMS_ITS | Encounter Summary ---
Author Organization [facility] Address [address] [place] [address] Care Team Providers Care Brim Pouncer Machine Operator Name Role Phone Elsewhere, Pcp Primary Care Provider Unavailabl e Encounter Details Date Type Department Care Team (Late st Contact Info) Description 12/28/2012 Historical Ophthalmology RST OPH Laura Foster M.D. [address] [facility] [address] [place] [address] Social History Tobacco Use Types Packs/Day Years Used Date Smoking Tobacco: Never Assessed Sex and Gender Information Value Date Recorded Sex Assigned at Not on file Gender Identity Female 09/23/2022 2:38 PM CDT Sexual Orientation Straight 09/23/2022 2: 38 PM CDT documented as of this encounter Progress Notes * Laura Foster M.D. - 12/28/2012 12:58 PM CDT Eye General HISTORY OF PRESENT ILLNESS Eye feeling much better. Using the vigamox QID. Vision good. Did wear contacts for a few hours overthe weekend. Otherwise always glasses. IMPRESSION / REPORT / PLAN #1 Corneal ulcer, left eye Healing well. Symptomatically better. Continue Vigamox QID until bottle gone (about two more days) then stop. Encouraged liberal artificial tears at least QID. Staying out of contacts for at least 1 month. Follow up in clinic in 1 week, sooner prn worsening symptoms. Patient noted understanding #2 Contact lens overuse Hygiene reportedly very good. Explained etiology of issue and prevention techniques. Advised on peroxide washes, possible daily lenses, avoiding overwear. Staying out of contacts for at least the next 3 weeks. DIAGNOSIS #1 Corneal ulcer, left eye #2 Contact lens overuse CDM Reports - EYEGEN Id: [id number] Status: Fnl documented in this encounter Plan of Treatment Not on file documented as of this encounter Visit Diagnoses Not on filedocumented in this encounter Additional Health Concerns Assessment Noted Time PHQ-9 Depression Total Score: 7 12/03/19 13 11:39 AM CDT documented as of this encounter Care Teams Brim Pouncer Machine Operator Relationship Specialty Start Date End Date Elsewhere, Pcp PCP - General 09/07/21 documented as of this encounter
--- OUTSIDE RECORDS SUMMARY | 2023-11-07 07:47 | XMS_ITS | Clinical Summary ---
Author Organization [facility] Address [place], [place] [address] Care Team Providers Care Facilities Manager Name Role Phone Radha Grimm MD Primary Care Provider [phone] Allergies Active Allergy Reactions Criticality Noted Date Comments Amoxicillin Rash 10/16/2011 Immunizations Name Administration Dates Next Due Tuberculin (PPD) 10/14/2011 Family History Medical History Relation Name Comments Cancer-breast No Family History Social History Tobacco Use Types Packs/Day Years Used Date Smoking Tobacco: Never Assessed Sex and Gender Information Value Date Recorded Sex Assigned at Not on file Gender Identity Not on file Sexual Orientation Not on file Obstetrics History Plan of Treatment Health Maintenance Due Date Last Done Comments Tdap 10/11/1979 Depression screening for age 12+ 1980 HIV for age 15-65 10/11/1983 BMI (ht and wt on same day) for age 18+ 1986 Hepatitis C screening for ag e 18-79 1986 Tetanus booster 1988 Pap test for age 21-65 1989 Colonoscopy through age 75 2013 Lipids for age 45-75 2013 Mammogram for age 45-75 2013 06/18/2011 Zoster (shingles) series for age 50+ (1 of 2) 2018 COVID-19 vaccine series (2022-24 season) 2023 Influenza for age 50-64 02/08/2024 Pneumococcal series for age 6-64 Aged Out No longer eligible based on patient's age to complete this topic Procedures Procedure Name Priority Date/Time Associated Diagnosis Comments XR MAMMO BILAT SCREEN FFDM (IA) Routine 06/18/2011 12:08 PM LASER SYSTEMS ENGINEER Other screening mammogram from Last 3 Months or Most Recently Relevant to Health Maintenance Results * XR MAMMO BILAT SCREEN FFDM (06/18/2011 12:08 PM LASER SYSTEMS ENGINEER) Anatomical Region Laterality Modality BREASTS, Breast Left, Breast Right Bilateral Mammography Impressions 06/18/2011 1:16 PM LASER SYSTEMS ENGINEER ??There is no radiographic evidence for malignancy. ??Recommend annual mammograms. A lay language report of this examination will be provided to the patient. MAMMOGRAM ASSESSMENT: ??ACR 1 Negative Narrative 06/18/2011 1:16 PM LASER SYSTEMS ENGINEER XR MAMMO BILAT SCREEN FFDM [G0202.0] CLINICAL HISTORY: ??This is an asymptomatic 40 y.o. patient. INDICATION FOR EXAM: Mammogram Screening. TECHNIQUE: CC & MLO views were obtained. ??This digital study was evaluated with the assistance of Computer-Aided Detection. ?? COMPARISON FILM: Yes 06/09/07 [facility] FINDINGS: ??Mammographically, the breast tissue is heterogeneously dense, which could obscure detection of small masses (approximately 51% - 75% glandular). ??There are no dominant masses, suspicious micro calcifications or areas of architectural distortion. Procedure Note Mu Casas MD - 06/18/2011 XR MAMMO BILAT SCREEN FFDM [G0202.0] CLINICAL HISTORY: This is an asymptomatic 40 y.o. patient. INDICATION FOR EXAM: Mammogram Screening. TECHNIQUE: CC & MLO views were obtained. This digital study was evaluatedwith the assistance of Computer-Aided Detection. COMPARISON FILM: Yes 06/09/07 [facility] FINDINGS: Mammographically, the breast tissue is heterogeneously dense,which could obscure detection of small masses (approximately 51% - 75%glandular). There are no dominant masses, suspicious micro calcificationsor areas of architectural distortion. IMPRESSION: There is no radiographic evidence for malignancy. Recommendannual mammograms. A lay language report of this examination will be provided to the patient. MAMMOGRAM ASSESSMENT: ACR 1 Negative Radha Grimm MD MAMMO from Last 3 Months or Most Recently Relevant to Health Maintenance Care Teams Facilities Manager Relationship Specialty Start Date End Date Radha Grimm MD PCP - General Internal Medicine 05/27/11
--- OUTSIDE RECORDS SUMMARY | 2023-11-07 07:47 | XMS_ITS | Encounter Summary ---
Author Organization [facility] Address [address] [place] [address] Care Team Providers Care Car Stower Name Role Phone Elsewhere, Pcp Primary Care Provider Unavailabl e Encounter Details Date Type Department Care Team (Late st Contact Info) Description 03/05/2013 Historical Ophthalmology RST OPH Laura Foster M.D. [address] [facility] [address] [place] [address] Social History Tobacco Use Types Packs/Day Years Used Date Smoking Tobacco: Never Assessed Sex and Gender Information Value Date Recorded Sex Assigned at Not on file Gender Identity Female 09/23/2022 2:38 PM CDT Sexual Orientation Straight 09/23/2022 2: 38 PM CDT documented as of this encounter Progress Notes * Laura Foster M.D. - 03/05/2013 1:45 PM CDT Eye General CHIEF COMPLAINT Pain, irritation, redness - left eye HISTORY OF PRESENT ILLNESS Pain; irritation; redness; left eye; x 1 week ; improving since first noted. Patient states that symptoms began after wearing contact lenses again x 2 weeks. Patient has discontinued contact lenses after symptoms became present. EAA: 3 weeks ago started wearing contacts again. 3 days ago noticed discomfort in the right eye. Itwas red and felt like there was something in it. Improved since she has stopped wearing the contacts. IMPRESSION / REPORT / PLAN #1 Contact lens overuse Hygiene reportedly very good. Had only been back in contacts 3 weeks. DIscussed options including alonger trial out of contacts. No further contact lens use or daily contacts. She is also interestedin Lasik evaluation. No signs of ulcer or abrasion on exam -no contacts -will call if she wants to pursue daily use contacts -Gave number for LASIK referal DIAGNOSIS #1 Contact lens overuse CDM Reports - EYEGEN Id: [id number] Status: Fnl documented in this encounter Plan of Treatment Not on file documented as of this encounter Visit Diagnoses Not on filedocumented in this encounter Additional Health Concerns Assessment Noted Time PHQ-9 Depression Total Score: 7 12/03/19 13 11:39 AM CDT documented as of this encounter Care Teams Car Stower Relationship Specialty Start Date End Date Elsewhere, Pcp PCP - General 09/07/21 documented as of this encounter
--- NOTE | 2023-11-07 08:15 | CRLHL7_ITS ---
For Patients: As a result of the Century Cures Act, medical imaging exams and procedure reports are released immediately into your electronic medical record. You may view this report before your referring provider. If you have questions, please contact your health care provider. BILATERAL SCREENING MAMMOGRAM WITH COMPUTER-AIDED DETECTION AND TOMOSYNTHESIS TECHNIQUE: CC and MLO views were obtained. These mammographic images have been obtained using full-field digital technique. These mammographic images were interpreted with the benefit of computer-aided detection. Breast Tomosynthesis was used in this interpretation. COMPARISON FILM: 01/06/23, 11/05/22, 10/30/21. FINDINGS: The breasts are heterogeneously dense, which may obscure small masses. IMPRESSION: There is no radiographic evidence for malignancy. ASSESSMENT: BI-RADS Category 1: Negative RECOMMENDATION: Routine screening mammogram in 1 year. A lay language report of this examination will be provided to the patient. Larry Clayton M.D. Diagnostic Radiologist [email or web address] SP/Dictated by: Larry Clayton MD @ 11/10/2023 12:10:00 PM (Electronically Signed)
== END 2023-11-07 07:46 | disposition home or self-care (01) ==
LOC: MAMMO 07:45
PROVIDERS: PCP Physician Assistant Medical; Visit Provider Physician Assistant Medical
DX: Z12.31 Encounter for screening mammogram for malignant neoplasm of breast (principal); R92.2 Inconclusive mammogram
CPT/HCPCS: 77063; 77067

== ENCOUNTER 2024-07-06 18:56 | Outpatient (CLI) | payer BC, SELFPAY | END 2024-07-06 18:57 | disposition home or self-care (01) | LOC: US 18:57 | PROVIDERS: PCP Physician Assistant Medical; Visit Provider Family Medicine | DX: M79.651 Pain in right thigh (principal); M79.89 Other specified soft tissue disorders | CPT/HCPCS: 93971 ==

== ENCOUNTER 2024-08-30 09:28 | Outpatient (CLI) | payer BC, SELFPAY ==
[2024-08-31 17:40] LABS: HPV Source Cervical/Vag; HPV, High Risk by TMA Not Detected
== END 2024-08-30 09:29 | disposition home or self-care (01) ==
PROVIDERS: PCP Physician Assistant Medical; Visit Provider Physician Assistant Medical
DX: R73.03 Prediabetes (principal); E55.9 Vitamin D deficiency, unspecified; E78.5 Hyperlipidemia, unspecified; N95.0 Postmenopausal bleeding; Z11.51 Encounter for screening for human papillomavirus (HPV); Z12.4 Encounter for screening for malignant neoplasm of cervix
CPT/HCPCS: 80053; 80061; 82306; 84439; 84443; 87624; 87625; 88141; 88142

== ENCOUNTER 2024-09-10 07:05 | Outpatient (CLI) | payer BC, SELFPAY ==
--- NOTE | 2024-09-10 07:15 | CRLHL7_ITS ---
For Patients: As a result of the Century Cures Act, medical imaging exams and procedure reports are released immediately into your electronic medical record. You may view this report before your referring provider. If you have questions, please contact your health care provider. INDICATION: Postmenopausal bleeding COMPARISON: none TECHNIQUE: 2D matias scale and color Doppler images were acquired of the pelvis using a transabdominal and transvaginal approach. FINDINGS: Lobular hypoechoic and vascular lesion is present at the endocervix which measures 2.0 x 1.7 x 1.2 cm. Right fundal intramural fibroid measures 1.6 x 1.3 x 1.1 cm. Uterine echotexture is heterogeneous. Uterus measures 8.6 cm in length by 4.3 cm in AP diameter by 6.0 cm in transverse dimension. Endometrium measures 2.8 millimeters. The right ovary measures 2.4 x 1.1 x 2.3 cm in size and the left ovary measures 3.6 x 1.7 x 1.5 cm. The ovaries demonstrate normal arterial and venous blood flow on color Doppler analysis. There are no suspicious fluid collections within the cul-de-sac. IMPRESSION: Vascular lobular solid mass at the endocervix measures 2 cm. Tissue sampling recommended. Dictated by Larry Clayton MD @ 09/10/2024 11:59:45 AM (Electronically Signed)
== END 2024-09-10 07:06 | disposition home or self-care (01) ==
LOC: US 07:07
PROVIDERS: PCP Physician Assistant Medical; Visit Provider Physician Assistant Medical
DX: N95.0 Postmenopausal bleeding (principal); R19.09 Other intra-abdominal and pelvic swelling, mass and lump; R55 Syncope and collapse
CPT/HCPCS: 76830; 76856; 93306

== ENCOUNTER 2024-09-22 07:10 | Outpatient (CLI) | payer BC, SELFPAY ==
--- NOTE | 2024-09-22 07:15 | CRLHL7_ITS ---
For Patients: As a result of the Century Cures Act, medical imaging exams and procedure reports are released immediately into your electronic medical record. You may view this report before your referring provider. If you have questions, please contact your health care provider. INDICATION: Post menopausal bleeding TECHNIQUE: 1.5 T MRI performed with pre and postcontrast T1 weighted imaging; T2 weighted imaging. 20 mL Dotarem IV COMPARISON: Pelvic ultrasound 09/10/2024 FINDINGS: Uterus: The uterus is normal in size measuring 4.7 x 8.1 cm. The endometrium measures 3 mm in thickness. One intramural right anterior fibroid is present measuring 0.6 x 1.2 cm (9/14). No definite evidence of endometriosis or adenomyosis. Cervical stroma: Ill-defined T2 intermediate lesion along the anterior cervix measuring approximately 1.2 x 1.5 cm (AP x CC; series 9, image 16). This lesion is subtly hypoenhancing on postcontrast imaging and difficult to appreciate (17/38). Ovaries/adnexa: The left ovary is unremarkable. The right ovary is not well seen. No evidence of ovarian/adnexal mass. Remaining pelvis: Limited evaluation of the abdominal viscera demonstrates normal appearance of the visualized bowel and urinary bladder. Vasculature: The iliac arteries are patent. Lymph nodes: No enlarged lymph nodes within the pelvis. Peritoneal space: Trace free fluid within the pelvis. Musculoskeletal: Bone marrow signal is within normal limits. IMPRESSION: Ill-defined, subtle anterior cervical lesion measuring up to 1.5 cm likely correlates with the abnormality on prior ultrasound and is indeterminate. Tissue sampling is recommended. Dictated by Natalee Leon MD @ 09/22/2024 11:40:42 AM (Electronically Signed)
== END 2024-09-22 07:11 | disposition home or self-care (01) ==
PROVIDERS: PCP Physician Assistant Medical; Visit Provider Obstetrics & Gynecology
DX: N95.0 Postmenopausal bleeding (principal); R93.89 Abnormal findings on diagnostic imaging of other specified body structures
CPT/HCPCS: 72197; A9575

== ENCOUNTER 2024-10-22 06:04 | Day surgery (SDC) | payer BC, SELFPAY ==
[2024-10-22 06:21] VITALS: BMI 28.3
[2024-10-22 06:49] VITALS: BP 137/83; PULSE 73; RESP 16; TEMP 36.3; O2SAT 98
[2024-10-22] MEDS: SODIUM CHLORIDE 0.9 % (FLUSH) 10 ML SYRINGE IVF (06:50)
[2024-10-22] MEDS: LACTATED RINGERS 500 ML 500 ML 100 ML IV (06:50)
--- NOTE | 2024-10-22 07:11 | P.GYNPRC_ITS ---
Procedure Note Time Seen by Provider: 08:12 Date of procedure: 10/22/24 Will [facility] bill your pro fee for this procedure?: Yes Pre-op diagnosis: 1. Postmenopausal bleeding 2. Mass within the uterine cervix Post-op diagnosis: Same Procedure: Preoperative diagnosis: 54 year-old with postmenopausal bleeding and mass of the uterine cervix noted on ultrasound and pelvic MRI Postoperative diagnosis: Same Procedure: Hysteroscopy, Dilation and Curettage using the Truclear incisor. Anesthesia: Conscious sedation, paracervical block. Surgeon: Julia Newton MD Artificial Glass Eye Maker: None Estimated blood loss: 3 mL IV Fluid: 250 mL Specimen: Endometrial and endocervical curettings to pathology Findings: Exam under anesthesia: Uterus: Midposition position, less than less than 8 week sized, mobile, with no masses or nodularity palpable. Uterus sounded to 7 cm. No adnexal masses or nodularity palpable. On hysteroscopy: There was a 1-1.5 cm mass at the upper aspect of the cervix at the 12 o'clock position most consistent with a submucosal fibroid, the endometrium appeared atrophic, possible endocervical polyp just inside the external cervical os. Procedure: Temitope was taken to the operating operating room more conscious sedation was found to be adequate. The patient was placed on in the dorsal lithotomy position and an exam under anesthesia was performed with findings stated above. She was then prepped and draped in a normal sterile manner. A bivalve speculum was placed in the vagina. The cervix appears nulliparous. Otherwise no abnorm alities. The paracervical block was placed using 0.5% Marcaine, 10 mL was injected at the 4 and 8 o'clock positions on the cervix, total of 20 mL used. A possible endocervical polyp was grasped with a ring forceps, twisted and removed from the external os of the cervix. The polyp measured approximately 3-5 mm in diameter. The anterior lip of the cervix was grasped with a single-tooth tenaculum. The cervix dilated to Hegar 6. The uterus sounded to 7 cm. The Truclear hysteroscope was advanced into the uterus. A diagnostic hysteroscopy was performed with normal saline as the insufflation medium. Findings are stated above. The Dense Tissue Mini Truclear incisor was then advanced through the camera. The curettage was performed with the incisor over an approximately 3 minutes. The incisor was then removed. The endometrial cavity and endocervical canal appeared normal. Saline deficit at the end of the procedure 190 mL. Total saline used 655 mL. Silver nitrate was used for hemostasis. The hysteroscope, Allis clamp and speculum were removed from the vaginal canal. The patient tolerated the procedure well. Sponge, lap and instrument counts were correct x2 at the end of the procedure. The patient was taken to the recovery area in stable condition. The patient received IV Toradol 30 mg at the end of the procedure prior to waking from anesthesia. Anesthesia: MAC and local Surgeon: Julia Newton MD Estimated blood loss (mL): 3 IV fluids (mL): 250 Pathology: specimen obtained, sent to pathology Condition: stable Disposition: same day
--- NOTE | 2024-10-22 07:11 | W.PM.H&PU ---
History & Physical Update History & Physical Update H&P Reviewed and patient assessed: No changes noted
[2024-10-22] MEDS: BUPIVACAINE 0.5% 30 ML INJECTION (07:50)
[2024-10-22] MEDS: KETOROLAC 30 MG/ML inj IVP (07:54)
[2024-10-22] MEDS: SILVER NITRATE APPLICATOR 1 EACH STICK..EA. TOPICAL (07:56)
--- NOTE | 2024-10-22 07:57 | SUR.OPER ---
fluid deficit 190 ml
[2024-10-22 08:05] VITALS: BP 107/59; PULSE 74; RESP 16; TEMP 36.2; O2SAT 97
--- NOTE | 2024-10-22 08:09 | P.ANES_ITS ---
Anesthesia Charges Start Date/Time Anesthesia Start Date: 10/22/24 Anesthesia Start Time: 07:23 Stop Date/Time Anesthesia Stop Date: 10/22/24 Anesthesia Stop Time: 08:10 Coding CPT Codes CPT Codes: ANESTH HYSTEROSCOPE/GRAPH - 97256 ([id number]) P2 - PATIENT W/MILD SYST DISEASE, QK - AFFIRMATIVE ACTION OFFICER 2-4 CNCRNT ANES PROC, QX - HOUSE OFFICER SVC W/ MD MED DIRECTION
--- NOTE | 2024-10-22 08:09 | W.ANESCHARGE ---
Anesthesia Charges Start Date/Time Anesthesia Start Date: 10/22/24 Anesthesia Start Time: 07:23 Stop Date/Time Anesthesia Stop Date: 10/22/24 Anesthesia Stop Time: 08:10 Coding CPT Codes CPT Codes: ANESTH HYSTEROSCOPE/GRAPH - 29264 ([id number]) P2 - PATIENT W/MILD SYST DISEASE, QK - SODA COLUMN OPERATOR 2-4 CNCRNT ANES PROC, QX - QUALITY ASSURANCE CALIBRATOR SVC W/ MD MED DIRECTION
--- NOTE | 2024-10-22 08:18 | P.ANES_ITS ---
Anesthesia Charges Start Date/Time Anesthesia Start Date: 10/22/24 Anesthesia Start Time: 07:23 Stop Date/Time Anesthesia Stop Date: 10/22/24 Anesthesia Stop Time: 08:10 Coding CPT Codes CPT Codes: ANESTH HYSTEROSCOPE/GRAPH - 35933 ([id number]) QK - RETENTION MANAGER 2-4 CNCRNT ANES PROC, QX - CHILD CARE PROVIDER SVC W/ MD MED DIRECTION, P2 - PATIENT W/MILD SYST DISEASE
--- NOTE | 2024-10-22 08:18 | W.ANESCHARGE ---
Anesthesia Charges Start Date/Time Anesthesia Start Date: 10/22/24 Anesthesia Start Time: 07:23 Stop Date/Time Anesthesia Stop Date: 10/22/24 Anesthesia Stop Time: 08:10 Coding CPT Codes CPT Codes: ANESTH HYSTEROSCOPE/GRAPH - 35725 ([id number]) QK - SET MAKING MACHINE OPERATOR 2-4 CNCRNT ANES PROC, QX - SAWMILL EQUIPMENT OPERATOR SVC W/ MD MED DIRECTION, P2 - PATIENT W/MILD SYST DISEASE
[2024-10-22 08:20] VITALS: BP 111/62; PULSE 66; RESP 16; O2SAT 98
[2024-10-22 08:35] VITALS: BP 121/76; PULSE 58; RESP 16; O2SAT 96
[2024-10-22 08:50] VITALS: BP 130/77; PULSE 64; RESP 16; TEMP 36.4; O2SAT 98
== END 2024-10-22 08:57 | disposition home or self-care (01) ==
PROVIDERS: PCP Physician Assistant Medical; Visit Provider Obstetrics & Gynecology
PROC: 0UDB8ZZ Extraction of Endometrium, Via Natural or Artificial Opening Endoscopic (ICD-10-PCS; CPT 58558; principal; 2024-10-22 07:15)
DX: N95.0 Postmenopausal bleeding (principal); N88.9 Noninflammatory disorder of cervix uteri, unspecified; D25.0 Submucous leiomyoma of uterus
CPT/HCPCS: 58558; 00952; 88305; A9270; C1782; J0665; J1885; J2250; J2704; J3010; J7120

== ENCOUNTER 2024-10-24 08:35 | Emergency (ER) | payer BC, SELFPAY ==
[2024-10-24 08:44] VITALS: BP 121/81; PULSE 67; RESP 14; TEMP 36.9; O2SAT 98; BMI 27.1
--- NOTE | 2024-10-24 09:00 | ED_ITS ---
HPI - General Adult General Date Seen: 10/24/24 Chief complaint: Constipation Stated complaint: constipation Time Seen by Provider: 10/24/24 08:40 History of Present Illness HPI narrative: Patient is a 54-year-old woman who has not had a bowel movement for several days which is unusual for her. She has rectal pressure and discomfort, feels like she needs to poop and is not able to push it out. She had an episode earlier when she was trying to go where she felt lightheaded and shaky. She has not had fevers, significant abdominal pain, nausea vomiting. She had a cervical procedure done a couple of days ago, no significant complications related to that. Related Data Home Medications ?Medication ?Instructions ?Recorded ?Confirmed estrogen testosterone subcut 03/04/23 09/15/24 progesterone micronized 200 mg 200 mg PO QPM 03/04/23 10/22/24 capsule Previous Rx's ?Medication ?Instructions ?Recorded magnesium citrate 300 ml PO ONCE #296 mL 10/24/24 Allergies Allergy/AdvReac Type Severity Reaction Status Date / Time amoxicillin Allergy Intermediate Hives Verified 10/22/24 06:16 [facility] Medical History (Updated 10/24/24 @ 09:28 by Nataliya Smith MD) Status post hysteroscopy (10/22/24) ?Z98.890 - Other specified postprocedural states (ICD-10) Prediabetes ?R73.03 - Prediabetes (ICD-10) Vitamin D deficiency ?E55.9 - Vitamin D deficiency, unspecified (ICD-10) Obesity ?E66.9 - Obesity, unspecified (ICD-10) Hyperlipidemia ?E78.5 - Hyperlipidemia, unspecified (ICD-10) Acid reflux ?K21.9 - Gastro-esophageal reflux disease without esophagitis (ICD-10) Obesity (BMI 30.0-34.9) ?E66.9 - Obesity, unspecified (ICD-10) Hormone imbalance ?E34.9 - Endocrine disorder, unspecified (ICD-10) Anxiety and depression ?F41.9 - Anxiety disorder, unspecified (ICD-10) ?F32.A - Depression, unspecified (ICD-10) DUB (dysfunctional uterine bleeding) ?N93.8 - Other specified abnormal uterine and vaginal bleeding (ICD-10) Postmenopausal bleeding ?N95.0 - Postmenopausal bleeding (ICD-10) Subclinical hypothyroidism ?E03.8 - Other specified hypothyroidism (ICD-10) Hormone replacement therapy (postmenopausal) ?Z79.890 - Hormone replacement therapy (ICD-10) Uterine fibroid ?D25.9 - Leiomyoma of uterus, unspecified (ICD-10) Unspecified injury of right quadriceps muscle, fascia and tendon, initial encounter ?S76.101A - Unspecified injury of right quadriceps muscle, fascia and tendon, initial encounter (ICD-10) Urinary tract infection ?N39.0 - Urinary tract infection, site not specified (ICD-10) Cholecystitis, acute ?K81.0 - Acute cholecystitis (ICD-10) Breast pain, left ?N64.4 - Mastodynia (ICD-10) Surgical History (Updated 09/15/24 @ 13:47 by Julia Newton MD) S/P laparoscopic cholecystectomy ?Z90.49 - Acquired absence of other specified parts of digestive tract (ICD- 10) Family History (Updated 09/15/24 @ 13:47 by Julia Newton MD) Father Diabetes High blood pressure High cholesterol Aunt Ovarian cancer Mother High blood pressure Social History (Updated 09/15/24 @ 13:49 by Julia Newton MD) Narrative: Consumes alcohol occasionally Does not use illicit drugs Has 1 child- DaughterMeaghan 05/10/15 . 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 She is lying on her side. Abdomen is soft and nontender Rectal exam: Fecal impaction. External exam is normal, no masses. Const: Vital Signs, click to edit/add: Vital Signs - 24 hr 10/24/24 08:44 Temperature 98.4 F Pulse Rate [Right Radial] 67 Respiratory Rate 14 Blood Pressure [Ri ght Upper Arm] 121/81 Pulse Oximetry 98 Oxygen Delivery Me thod Room Air Course Course ED Course: Will try an enema to see if we can relieve her symptoms. The impacted stool is too high up for me to reach. She had large results with an enema, feels improved. Will prescribe some Mag citrate for home, recommended daily MiraLax. Discussed reasons to return such as significant abdominal pain, vomiting, fevers or other worsening. Primary care follow-up as needed. Vital Signs Vital signs: Initial Vital Signs Temperature 98.4 F 10/24/24 08:44 Temperature Source Temporal Artery Scan 10/24/24 08:44 Pulse Rate 67 10/24/24 08:44 Pulse Rhythm Regular 10/24/24 08:44 Respiratory Rate 14 10/24/24 08:44 Blood Pressure 121/81 10/24/24 08:44 Blood Pressure Mean 94 10/24/24 08:44 Pulse Oximetry 98 10/24/24 08:44 Oxygen Delivery Method Room Air 10/24/24 08:44 Vital Signs Temperature 98.4 F 10/24/24 08:44 Pulse Rate 67 10/24/24 08:44 Respiratory Rate 14 10/24/24 08:44 Blood Pressure 121/81 10/24/24 08:44 Pulse Oximetry 98 10/24/24 08:44 Oxygen Delivery Method Room Air 10/24/24 08:44 Temperature 98.4 F 10/24/24 08:44 Pulse Rate 67 10/24/24 08:44 Respiratory Rate 14 10/24/24 08:44 Blood Pressure 121/81 10/24/24 08:44 Pulse Oximetry 98 10/24/24 08:44 Oxygen Delivery Method Room Air 10/24/24 08:44 Discharge Plan Discharge Clinical Impression: Fecal impaction Patient Disposition: Home, Self-Care Condition: Improved Instructions: Fecal Impaction (ED) Additional Instructions: Use dose of Mag citrate when you get home. This usually will cause fairly significant results, so I would stay at home after you take this. After that, I would recommend daily MiraLax to make sure that stools stay soft. Hydration and fiber intake are important as well. Return to the ER if you have significant abdominal pain, vomiting, fevers or other worsening. Prescriptions: New magnesium citrate Solution 300 ml PO ONCE Qty: 296 0RF No Action progesterone micronized 200 mg capsule 200 mg PO QPM estrogen testosterone subcut Follow Up/Referrals: Blaine Sharp PA-C [Primary Care Provider] - Stand Alone Forms: [employer] Info Instructions
--- OUTSIDE RECORDS SUMMARY | 2024-10-24 17:43 | XMS_ITS | Patient Health Record ---
Author Organization [facility] Address [address] [place] [address] Care Team Providers Care Pulmonologist Name Role Phone None, None Primary Care Provider UnavailTAYLOR Montaño Unavailable [phone] KrisTriSendy Unavailable [phone] Allergies No Known Allergies Results Component Value Reference Range Notes MRI : Brain and IAC's W/WO Reviewed date:01/06/2024 11:52:07 AM Interpretation: Performing Lab: Notes/Report: Original Report CD[facility] Location: [place]:[facility] EXAM: MRI BRAIN AND IAC WITHOUT AND WITH CONTRAST CLINICAL INFORMATION: Hearing loss and vertigo. TECHNICAL INFORMATION: MRI brain was obtained on 1.5 Amy magnet including sagittal T1, axial diffusion-weighted images with apparent diffusion coefficient maps, T2 FLAIR, susceptibility weighted images, T2 propeller images axial 3-D T2 cube images was 0.8 mm slice thickness through the internal auditory canals and axial T1-weighted images. Postcontrast enhanced images including coronal 3-D, axial T1 with fat saturation and thin sections through the internal auditory canals, and axial T1 whole brain images. Contrast: 17 mL Dotarem contrast. INTERPRETATION: There are no areas of increased signal on the diffusion-weighted images to suggest an acute or subacute infarction. No blood product deposition within the brain on the susceptibility-weighted images. The ventricles and sulci are within normal limits. Intracranial flow voids are unremarkable. No abnormal enhancement within the brain. No abnormal soft tissue or enhancement within the internal auditory canals. The cerebellar tonsils are normal in position and morphology. Midline structures including the sella and suprasellar region as well as the corpus callosum are unremarkable. The calvarial marrow signal is normal. The orbits are normal in appearance. There is rightward nasal septal deviation. Minimal mucosal thickening in the ethmoid air cells. The mastoid air cells are clear. CONCLUSION: 1. No abnormal soft tissue or enhancement within the internal auditory canals. 2. No restricted diffusion, blood product deposition, or abnormal enhancement within the brain. LPB Read by: Mitzy Lau M.D. Reviewed and Electronically Signed by: Mitzy Lau M.D. Reason For Referral Reason Evaluate and treat - do not perform VNG and Rotational Chair Testing. Specific instructions: water calorics Diagnosis 1 Vertigo (R42) Referral [facility] Referring Provider First Name TAYLOR Referring Provider Last Name THEO Referring Provider Speciality Otolaryngo logy Referred Provider [facility] [place] [facility] Referred Provider Specialty Physical Med icine and Rehabilitation General Notes Nicanor Frances 0 12/17/2023 08:43:02 AM > faxed Referral Priority Routine Reason Eval and Treat Audio logy Services Do NOT do Rotational Chair Testing or VNG WANTS WATER CALORIES Diagnosis 1 Vertigo (R42) Referral Organization [facility] Referring Provider First Name TAYLOR Referring Provider Last Name THEO Referring Provider Speciality Otolaryngo logy Referred Provider Specialty [facility] General Notes Sendy Breen 12/16 10:48:14 AM > Refaxed with Audiogram and notes from Margarita Referral Priority Routine Medications Medication SIG (Take, Route, Frequency, Duration) Notes Start Date End Date Status Progesterone 200 MG Capsule Oral; Duration: 90 Days Active Phentermine HCl 37.5 MG Tablet TAKE ONE TABLET BY MOUTH EVERY DAY 30 MINUTES BEFORE OR 1-2 HOURS AFTER BREAKFAST Oral; Duration: 90 Days Active Social History Tobacco Use: Social History Observation Description Date Details (start date - stop date) Never Smoker NA - NA Social History Alcohol Use: Social Info Question Answer Notes Recreational drugs Recreational Drug Use: No Alcohol Screen Did you have a drink containing alcohol in the past year? Yes How often did you have 6 or more drinks on one occasion in the past year? Less than monthly (1 point) How many drinks did you have on a typical day when you were drinking in the past year? 1 or 2 drinks (0 point) How often did you have a drink containing alcohol in the past year? 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 Problems Problem Type SNOMED Code ICD Code Onset Dates Problem Status W/U Status Risk Notes Problem Sensorineural hearing loss (44472348) Sensorineural hearing loss (H90.5) Active confirmed Problem Sensorineural hearing loss, bilateral (532968655) Sensorineural hearing loss (SNHL) of both ears (H90.3) Active confirmed Vital Signs Height-cm 172.72 cm 12/16/2023 Weight-kg 81.65 kg 12/16/2023 Height 68 in 12/16/2023 Weight 180 lbs 12/16/2023 BMI 27.37 kg/m2 12/16/2023 Encounters Encounter Location Date Provider Diagnosis [facility] [address] [place] [phone] 12/16/2023 TAYLOR VENEGAS Vertigo R42 ; Nasal septal deviation J34.2 and Sensorineural hearing loss (SNHL) of both ears H90.3 [facility] [address] [place] [phone] 12/16/2023 Sendy Puls Vertigo R42 and Sensorineural hearing loss H90.5 [facility] [address] [place] [phone] 12/17/2023 TAYLOR VENEGAS [facility] [address] [place] [phone] 01/06/2024 TAYLOR VENEGAS Assessments Encounter Date Diagnosis (ICD Code) Assessment Notes Treatment Notes Treatment Clinical Notes Section Notes 12/16/2023 Nasal septal deviation (ICD-10 - J34.2) 12/16/2023 Vertigo (ICD-10 - R42) She was reassured that her neuro otologic exam looks normal, however she does have a fairly symmetric sensorineural hearing loss. Her episodic vertigo may be related to a peripheral vestibular etiology, and given the 5-10 minute duration of symptoms, nausea, and history of left ear fullness I suspect she could have a variant of Meniere's. We discussed following a low salt diet and use of meclizine and Zofran if the symptoms are too bothersome. I would like to check an MRI scan to rule out any retro cochlear or central neurologic disease that could cause similar symptoms. She may have an unusual variant of BPPV that was triggered while she was asleep, so I recommended a VNG to more definitively evaluate the vestibular system and rule that possibility out. If positive she may be a candidate for Pepe's maneuver. Her history is not consistent with vestibular neuronitis or vestibular migraines. 12/16/2023 Sensorineural hearing loss (ICD-10 - H90.5) 12/16/2023 Vertigo (ICD-10 - R42) 12/16/2023 Sensorineural hearing loss (SNHL) of both ears (ICD-10 - H90.3) 12/16/2023 Other Body mass index material was published Plan Of Treatment No Information Insurance Providers Payer Name Payer Address Payer Phone Subscriber Number Group Number Insured Name Patient Relationship to Insured Coverage Start Date Coverage End Date [facility] [address] [address] [place] [address] [id number] Temitope Glavez Self - patient is the insured Medical (General) History Medical History History ICD Code Conditions/Illness:: None Surgical History Surgery Date(Month/Year) Gallbladder surgery
--- OUTSIDE RECORDS SUMMARY | 2024-10-24 17:43 | XMS_ITS ---
Author Organization [facility] Address [address] [place] [address] Care Team Providers Care Dross Skimmer Name Role Phone None, No PCP Primary Care Provider UnavailGeorge Drummond Unavailable [phone] CurtJane edwards Unavailable [phone] Allergies Allergen (clinical drug ingredient) Drug/Non Drug Allergy documented on EMR Reaction Allergy Type Onset Date Status amoxicillin Amoxicillin hives Drug Allergy Act keith REASON FOR VISIT Bleeding on HRT, Pt called the clinic and she states she has been bleeding for a couple of weeks. Last pellet insert was 06/2024, Spoke to pt at 2:04pm and she states she is still bleeding., mc, ca Medications Medication SIG (Take, Route, Fr equency, Duration) Notes Start Date End Date Status Phentermine HCl 37.5 MG TAKE ONE TABLET BY MOUTH EVERY DAY 30 MINUTES BEFORE OR 1-2 HOURS AFTER BREAKFAST Oral for 90 Days Active Progesterone 200 mg TAKE 1 CAPSULE DAILY AT BEDTIME Active Estrogen Pellets Act keith Testosterone Pellets Active Social History Tobacco Use: Social History [...] Never (0 point) Points 2 Interpretation Negative Encounters Encounter Location Date Provider Diagnosis [facility] [address] [place] [address] 09/17/2024 Jane Burden Plan Of Treatment Next Appt Details Provider Name:George Johnson, 10/26/2024 08:30:00 AM, [address] [place], [address], Provider Name:George Johnson, 11/02/2024 09:30:00 AM, [address] [place], [address], Progress Notes * Temitope VALLE KDOB: [birth year] (54 yo F)Acc No.[id number]:09/17/2024 Patient: Temitope BAKER Provider: Ben Burden, :1970 A ge:53 Y S ex:Female Date:09/17/2024 Address:[address] [place], [place] [phone] Pcp:No PCP None Subjective: * Chief Complaints: * 1 . Bleeding on HRT. 2. Pt called the clinic and she states she has been bleeding for a couple of weeks. Last pellet insert was 06/2024. 3. Spoke to pt at 2:04pm and she states she is still bleeding.. 4. Mc, ca. * Medical History: H yperlipidemia, Pneumonia, Thyroid problem - possibly hypothyroidism. 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 B irth Control: M enopause. S exual Activity C urrently sexually active, . S exually Tranmitted Disease (STD) N one. A bnormal Pap Smear N ever Had One. * OB History: G PAL: G [id number]. T otal living children 1 . P regnancy # 1: 2 012, Miscarriage (SAB). P regnancy # 2: 1 07/11/2024, female, , full term, gestational diabetes.? * Surgical History: D enies Past Surgical History. * Hospitalization/Major Diagno stic Procedure: D enies Past Hospitalization. * Family History: M other: diagnosed with Hypertension. F ather: diagnosed with Hypertension. * Social History: T obacco Use: T obacco Use/Smoking A re you a n onsmoker D rugs/Alcohol: D rugs H ave you used drugs other than those for medical reasons in the past 12 months? N o Alcohol Screen (Audit-C) D id you have a drink containing alcohol in the past year? Y es H ow often did you have a drink containing alcohol in the past year? 2 to 4 times a month (2 points) H ow many drinks did you have on a typical day when you were drinking in the past year? 1 or 2 drinks (0 point) H ow often did you have 6 or more drinks on one occasion in the past year? N ever (0 point) P oints 2 I nterpretation N egative Caffeine I ntake: 1 -2 cups per day Do you drink alcohol?: 2-3 drinks per month. * Medications: T aking Estrogen Pellets , Taking Testosterone Pellets , Taking Phentermine HCl 37.5 MG Tablet TAKE ONE TABLET BY MOUTH EVERY DAY 30 MINUTES BEFORE OR 1-2 HOURS AFTER BREAKFAST Oral , Taking Progesterone 200 mg Capsule TAKE 1 CAPSULE DAILY AT BEDTIME , Medication List reviewed and reconciled with the patient * Allergies: A moxicillin: hives. Objective: * Vitals: Assessment: Plan: * Treatment: * Preventive Medicine: YOUR PREVENTIVE WELLNESS PLAN: B reast Cancer Screening (Mammogram): My last mammogram was done on: 0 11/07/2023 Negative C ervical Cancer Screening (Pap Smear): My last Pap smear was done on: u nknown date NILM O steoporosis Screening (Bone Density Measurement): My last bone density was done on: N ever, Under 65yr C olorectal Cancer Screening: Last Done Colonoscopy 0 08/31/2021 Normal D epression Screening: Screening for depression was last done on: 0 01/21/2023 * Images: Billing Information: * Visit Code: * Procedure Codes: * Electronic signature of Johan Burden DO on 10/24/2024 at 05:43 PM CDT Sign off status: Pending * Provider: Ben Burden, DO Date: 0 09/17/2024 Generated for Aria villalba/Ahmet/Dominicsmitting on: 0 10/24/2024 05:43 PM CDT
--- OUTSIDE RECORDS SUMMARY | 2024-10-24 17:43 | XMS_ITS ---
Author Organization [facility] Address [address] [place] [address] Care Team Providers Care Time Signal Wirer Name Role Phone None, No PCP Primary Care Provider George Zuñiga Unavailable [phone] REASON FOR VISIT UPDATED 09/17-bleeding with HRT Encounters Encounter Location Date Provider Diagnosis [facility] [address] [place] [address] 09/15/2024 George Johnson Plan Of Treatment Next Appt Details Provider Name:George Johnson, 10/26/2024 08:30:00 AM, [address] [place], [phone], Provider Name:George Johnson, 11/02/2024 09:30:00 AM, [address] [place], [address], Progress Notes * Temitope VALLE KDOB: [birth year] (53 yo F)Acc No.[id number]:09/15/2024 Patient: Elizabet DAMIANTemitope Loomis :1970 A ge:53 Y S ex:Female Address:[address] [place] [address] * true * Date: Generated for Printi ng/Fasylviag/eTransmitting on: 0 10/24/2024 05:43 PM CDT
--- OUTSIDE RECORDS SUMMARY | 2024-10-24 17:43 | XMS_ITS | Patient Health Record ---
Author Organization [facility] Address [address] [place] [address] Care Team Providers Care Radio Maintainer Name Role Phone None, No PCP Primary Care Provider George Zuñiga Unavailable [phone] EuJane edwards Unavailable [phone] Allergies Allergen (clinical drug ingredient) Drug/Non Drug Allergy documented on EMR Reaction Allergy Type Onset Date Status amoxicillin Amoxicillin hives Drug Allergy Act keith Results Component Value Reference Range Notes Sensitive Estradiol (IH) Reviewed date:06/29/2024 09:51:14 AM Interpretation: Performing Lab: Notes/Report: Access 2 ([id number]), [place] [facility] Testosterone, Total ([facility]) Reviewed date:06/29/2024 09:51:14 AM Interpretation: Performing Lab: Notes/Report: Access 2 ([id number]), [place] [facility] FSH (IH) Reviewed date:06/29/2024 09:51:14 AM Interpretation: Performing Lab: Notes/Report: Access 2 ([id number]), [place] [facility] Sensitive Estradiol (IH) Reviewed date:01/05/2024 08:27:58 AM Interpretation: Performing Lab: Notes/Report: Access 2 ([id number]), [place] [facility] Testosterone, Total (IH) Reviewed date:01/05/2024 08:27:58 AM Interpretation: Performing Lab: Notes/Report: Access 2 ([id number]), [place] [facility] FSH (IH) Reviewed date:01/05/2024 08:27:58 AM Interpretation: Performing Lab: Notes/Report: Access 2 ([id number]), [place] - [facility] Reason For Referral No Information Medications Medication SIG (Take, Route, Fr equency, [...] Problem Status W/U Status Risk Notes Problem Menopausal and female climacteric states (N95.1) Active confirmed Problem Unspecified menopausal and perimenopausal disorder (N95.9) Active confirmed Problem Menopausal and perimenopausal disorder (N95.9) Active confirmed Problem Menopause (008306257) Climacteric (N95.1) Active confirmed Problem Menopausal syndrome (disorder) (160435030) Menopausal disorder (N95.9) Active confirmed Problem Pre-procedural examination (Z01.818) Active confirmed Vital Signs Blood pressure diastolic 86 mm Hg 07/01/2024 Height 68 in 07/01/2024 Blood pressure systolic 130 mm Hg 07/01/2024 Weight 178.2 lbs 07/01/2024 BMI 27.09 kg/m2 07/01/2024 Encounters Encounter Location Date Provider Diagnosis [facility] [address] [place] [address] 07/01/2024 George Johnson Menopausal and femal e climacteric states N95.1 [facility] [address] [place] [address] 01/08/2024 George Johnson Menopausal and perimenopausal disorder N95.9 [facility] [address] [place] [address] 06/24/2024 George Johnson Menopausal and femal e climacteric states N95.1 [facility] [address] [place] [address] 12/24/2023 George Johnson Menopausal and femal e climacteric states N95.1 [facility] [address] [place] [address] 09/15/2024 George Johnson [facility] [address] [place] [address] 05/24/2024 George Johnson Assessments Encounter Date Diagnosis (ICD Code) Assessment Notes Treatment Notes Treatment Clinical Notes Section Notes 12/24/2023 Menopausal and female climacteric states (ICD-10 - N95.1) 01/08/2024 Menopausal and perimenopausal disorder (ICD-10 - N95.9) 07/01/2024 Menopausal and female climacteric states (ICD-10 - N95.1) 06/24/2024 Menopausal and female climacteric states (ICD-10 - N95.1) 01/08/2024 Other -HRT pellet inserted as documented above [...] needed before next insertion if any concerns 07/01/2024 Other -HRT pellet inserted as documented above without complication -Post-insertion instructions reviewed. Printed handout with instructions given along with ice pack. Repeat ice to insertion site for 20 min. 3-5 times a day PRN for soreness at insertion site -Report any signs of infection or pellet expulsion -Repeat labs in 4 months (E2, FSH, total testosterone) with next insertion 1 week later -Follow up as needed before next insertion if any concerns Plan Of Treatment Next Appt Details Provider Name:George Johnson, 10/26/2024 08:30:00 AM, [address] [place], [address], Provider Name:George Johnson, 11/02/2024 09:30:00 AM, [address], [place], [address], Insurance Providers Payer Name Payer Address Payer Phone Subscriber Number Group Number Insured Name Patient Relationship to Insured Coverage Start Date Coverage End Date [employer] - (Client Bill) [address] [place] [address] [id number] Temitope Alfonso Self - patient is the insured Medical (General) History Medical History History ICD Code hyperlipidemia Pneumonia thyroid problem - possibly hypothyroidis m
--- OUTSIDE RECORDS SUMMARY | 2024-10-24 17:43 | XMS_ITS | Clinical Summary ---
Author Organization [facility] Address [address] [place] [address] Care Team Providers Care Betting Clerk Name Role Phone Pcp, No Primary Care Provider Radha Macias MD Unavailable [phone] Allergies Active Allergy Reactions Criticality Noted Date Comments Amoxicillin Rash 10/16/2011 Amoxicillin Rash 08/20/2024 Medications progesterone micronized (PROMETRIUM) 200 mg capsule Take 200 mg by mouth at bedtime. This product contains peanut oil. Please verify patient allergies. Active Active Problems Problem Noted Date Diagnosed Date Syncope 08/21/2024 Encounters Date Type Department Care Team Description 10/22/2024 Lab Requisition [facility] [phone] Julia Newton MD 09/16/2024 Lab Requisition [facility] [phone] Julia Newton MD 09/10/2024 8:00 AM CDT Ancillary Procedure [facility] [place] [address] [place] [address] 08/21/2024 Travel 08/20/2024 10:59 PM CDT - 08/22/2024 2:05 PM CDT Hospital Encounter [facility] [address] [place] [address] Km Jimenez [place] [facility] [place] [facility] Hospitalists Anish Hensley DO Bailey, Joshua Anthony, MD Nguyen, Duc Minh, MD Decreased level of consciousness (Primary Dx) Discharge Disposition: Home Self Care from Last 3 Months Immunizations Immunization Administration Dates Next Due Tuberculin (PPD) 10/14/2011 Family History Medical History Relation Name Comments Cancer-breast No Family History Social History Tobacco Use Types Packs/Day Years Used Date Smoking Tobacco: Never Passive Smoke Exposure: Never Smokeless Tobacco: Never Tobacco Cessation:Counseling Given: No Alcohol Use Standard Drinks/Week Comments Not Currently 0 (1 standard drink = 0.6 oz pur e alcohol) occasional Social Connections Answer Date Recorded Do you often feel lonely or isolated from those around you? 0 08/21/2024 Financial Resource Strain Answer Date R ecorded Difficulty of Paying Living Expenses 3 08/21/2024 Difficulty of Paying Living Expenses Not on file 08/21/2024 Food Insecurity Answer Date Recorded Do you worry your food will run out before you are able to buy more? 1 08/21/2024 Transportation Needs Answer Date Record ed Does lack of transportation keep you from medica l appointments? 1 08/21/2024 Does lack of transportation keep you from work, meetings or getting things that you need? 1 08/21/2024 Housing Stability Answer Date Recorded What is your housing situation today? 1 08/21/2024 Interpersonal Safety Answer Date Record ed Are you being hit, kicked, p ushed or yelled at (see row info)? No 08/20/2024 Interpersonal Safety Abuse 12 - 18 Not on file 08/20/2024 Interpersonal Safety Ambulatory Vulnerability No t on file 08/20/2024 Utilities Answer Date Recorded Do you have trouble paying f or utilities (for example, heat, electricity, water, phone)? 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 Gender Identity Not on file Sexual Orientation Not on file Obstetrics History Last Filed Vital Signs Vital Sign Reading Time Taken Comments Blood Pressure 131/73 08/22/2024 7:46 AM CDT Pulse 70 08/22/2024 7:46 AM CDT Temperature 36.4 C (97.6 F) 08/22/2024 7:46 AM CDT Respiratory Rate 18 08/22/2024 7:46 AM CDT Oxygen Saturation 95% 08/22/2024 7:46 AM CDT Inhaled Oxygen Concentration - - Weight 81.4 kg (179 lb 6.4 oz) 08/20/2024 11:04 PM CDT Height 157.5 cm (5' 2) 08/20/2024 11:04 PM CDT Body Mass Index 32.81 08/20/2024 11:04 PM CDT Plan of Treatment Health Maintenance Due Date Last Done Comments Tdap 10/11/1979 Depression screening for age 12+ 1980 HIV for age 15-65 10/11/1983 BMI (ht and wt on same day) for age 18+ 1986 Hepatitis C screening for age 18-79 1986 Tetanus booster 1988 Colonoscopy through age 75 2013 Lipids for age 45-75 2013 Mammogram for age 45-75 2013 06/18/2011 Pneumococcal series for age 50+ (1 of 1 - PCV) 2018 Zoster (shingles) series for age 50+ (1 of 2) 2018 Pap test for age 21-65 08/10/2021 08/10/2018, 2018 COVID-19 vaccine series ( season) 2024 02/16/2021, 01/26/2021 Influenza Vaccine (Season Ended) 2025 Procedures Procedure Name Priority Date/Time Associated Diagnosis Comments LAB TRACKING EVENT Routine 09/15/2024 8: 30 AM CDT PATH TISSUE EXAM Routine 09/15/2024 8:30 AM CDT ECHO TTE COMPLETE WO CONTRAST Routine 09/10/2024 8:33 AM CDT Postmenopausal bleeding SCAN-CARDIAC STRIP 08/22/2024 12 :59 AM CDT MR HEAD BRAIN WO Routine 08/21/2024 8:57 PM CDT SCAN-CARDIAC STRIP 08/21/2024 3: 52 AM CDT VITAMIN D 25 (DEFICIENCY) CULLEN 08/21/2024 1:11 AM CDT TSH CULLEN 08/21/2024 1:11 AM CDT TROPONIN T (HS) ONE TIME Timed 08/21/2024 1:11 AM CDT CTA CHEST ABDOMEN PELVIS AORTIC DISSECTION W STAT 08/21/2024 12:[address] ANGIO HEAD NECK CAROTID STROKE PROTOCOL TABBY CANDIDAT STAT 08/21/2024 12:[address] HEAD BRAIN WO STAT 08/21/2024 12:4 1 AM CDT EKG 12 LEAD STAT 08/20/2024 11:26 PM CDT EXTRA TUBE BLUE Today 08/20/2024 11:10 PM CDT MAGNESIUM STAT 08/20/2024 11:09 PM CDT ETHANOL SERUM OR PLASMA STAT 08/20/2024 11:09 PM CDT TROPONIN T (HS) ACUTE W/2HR REFLEX STAT 08/20/2024 11:09 PM CDT EXTRA TUBE GOLD/SST Today 08/20/2024 1 1:09 PM CDT EXTRA TUBE LIGHT GREEN Today 08/20/2024 11:09 PM CDT BASIC METABOLIC PANEL STAT 08/20/2024 11:09 PM CDT CBC W PLT NO DIFF STAT 08/20/2024 11: 09 PM CDT POLICE JUSTICE THIN PREP PAP SCREEN IMAGED Routine 08/10/2018 12:00 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 [place] [address], [place] * PATH TISSUE EXAM (09/15/2024 8:30 AM CDT) Case Report Pathology Report Case: [id number] Authorizing Provider: Julia Newton Collected: 09/15/2024 0830 MD Susanna Ordering Location: [facility] Received: 09/16/2024 1048 Pathologist: Zeny Anderson MD Specimen: Endocervical Curettings 09/17/2024 1:38 PM CDT [facility] Final Diagnosis A) ENDOCERVIX, CURETTAGE: 1. Fragments of benign endocervical tissues 2. Negative for glandular neoplasia, squamous intraepithelial lesion, and malignancy 09/17/2024 1:38 PM CDT [facility] at 1338 CDT Clinical Information Postmenopausal bleeding. Patient currently taking hormonal replacement therapy. LMP 5 years ago. Endometrial thickness 2.8 mm. Ultrasound identified a 2 cm lobular, hypoechoic, vascular lesion in the endocervix. No history of abnormal Pap smears. Last Pap was 08/26/2024 was NIL with negative HPV. ECC attempted. 09/17/2024 1:38 PM CDT [facility] Gross Description A) Received in formalin, labeled with the patient's name and ECC, is a 1.0 x 0.4 x 0.2 cm aggregate of blood tinged mucous. The specimen is entirely submitted in 1 cassette. TLF 09/16/2024 09/17/2024 1:38 PM CDT [facility] Microscopic Description The final diagnosis is based on microscopic examination of appropriate sections of all specimens. 09/17/2024 1:38 PM CDT [facility] Additional Information Interpreted at [facility] - [address], [place] [address] 09/17/2024 1:38 PM CDT [facility] Other (Endocervical Curettings) 09/15/2024 8:30 AM CDT 09/16/2024 10:48 AM CDT us Julia Newton MD PATHOLOGY/CYTOLOGY Final Result [facility] [address] [place] [address], [place] * ECHO TTE COMPLETE WO CONTRAST (09/10/2024 8:33 AM CDT) AORTIC VALVE MEAN PG 5 mmHg EJECTION FRACTION 71 % LVEDD 3.8 cm EJECTION FRACTION 65 - 70% Anatomical Region Laterality Modality Ultrasound 09/10/2024 8:02 AM CDT Narrative 09/10/2024 9:09 AM CDT ECHOCARDIOGRAM TEMITOPE GALVEZ : 1970 53 years Study Date: 09/10/2024 8:02:54 AM Gender: F BP: 136/82 mmHg Height: 173.00 cm BSA: 1.92 m Weight: 78.00 kg Tech: [facility] [place] Referring MD: TRENTON SHARP Site: [facility] Reading Location: Mobile-OP Patient Location: Outpatient. Procedure: 2D, Color Doppler and Spectral Doppler. Indication for study: Syncope Cardiac Rhythm: Regular.Study quality: Fair. Final Impressions: 1. Normal LV size, normal wall thickness, normal global systolic function with an estimated EF of 65 - 70%. 2. Right ventricular cavity size is normal, global systolic RV function is normal. 3. No significant valve disease detected. 4. IVC morphology suggests normal RA pressure. Comparison There are no prior studies on this patient for comparison purposes. Chamber Sizes and Function Normal left ventricular size, normal wall thickness, normal global systolic function with an estimated EF of 65 - 70%. No resting regional wall motion abnormality visualized. Left atrial size is normal. Right ventricular cavity size is normal, global systolic RV function is normal. RV measures slightly large in 4C view, but likely off axis. RV size appears normal in other views. The right atrium is normal. Right atrial volume index is 15 ml/m . Right atrial area is 13 cm . The pulmonary artery is not well visualized. The sinus of Valsalva is normal sized. The ascending aorta is normal sized. Valves, RV Pressures and Diastolic Function The aortic valve is normal in structure, no stenosis and no regurgitation. The mitral valve is normal in structure, trace mitral regurgitation. Normal diastolic function. The tricuspid valve is normal in structure and trace tricuspid regurgitation. Unable to assess right ventricular systolic pressure. The pulmonic valve is not well visualized. No pulmonary regurgitation. Masses, Effusion, Shunts There is no pericardial effusion. The inferior vena cava is normal sized, respiratory size variation greater than 50%. No left to right shunting was detected by limited color flow Doppler interrogation of the interatrial septum. MEASUREMENTS AND CALCULATIONS 2-D Measurements and LV Function: LVID (d) 3.8 cm LV FS% (2D) 42 % LVID (s) 2.2 cm LVOT diameter 2.0 cm IVS (d) 0.9 cm HR 64 bpm LVPW (d) 0.9 cm LA Vol index 17 ml/m2 Ao Sinus 3.1 cm RA Vol index 15 ml/m2 Ao Sinus ULN 3.7 cm * RA area 13 cm Asc Ao 3.0 cm RV Basal Diam 4.2 cm Asc Ao ULN 3.8 cm * RV Mid Diam 2.4 cm LA 2.8 cm * Input BSA outside of range, reported values correspond to BSA = 1.9 Diastology: Mitral Tissue Doppler E Peak 1.0 m/s e', Septum 0.11 m/s A Peak 0.8 m/s e', Lateral 0.11 m/s E/A 1.2 E/e' Average 8.85 DT 207 msec Aortic Valve: Vmax 1.6 m/s NILA (V) 2.88 cm VTI 0.33 m NILA (I) 2.76 cm LVOT V max 1.5 m/s Max PG 10 mmHg LVOT VTI 0.29 m Mean PG 5 mmHg SV 92 ml Dim Index 0.87 SV index 48 ml/m CO 5.9 l/min CI 3.1 l/min/m Mitral Valve: MVA 3.7 cm MV P 1/2 60 msec Tricuspid Valve and estimated PA pressures: TAPSE 2.5 cm . This study was interpreted by an [facility] accredited facility. Final Procedure Note Mack Jett MD - 09/10/2024 ECHOCARDIOGRAM TEMITOPE GALVEZ : 1970 53 years Study Date: 09/10/2024 8:02:54 AM Gender: F BP: 136/82 mmHg Height: 173.00 cm BSA: 1.92 m Weight: 78.00 kg Tech: [facility] Referring MD: TRENTON SHARP Site: [facility] Reading Location: Mobile-OP Patient Location: Outpatient. Procedure: 2D, Color Doppler and Spectral Doppler. Indication for study: Syncope Cardiac Rhythm: Regular.Study quality: Fair. Final Impressions: 1. Normal LV size, normal wall thickness, normal global systolic functionwith an estimated EF of 65 - 70%. 2. Right ventricular cavity size is normal, global systolic RV functionis normal. 3. No significant valve disease detected. 4. IVC morphology suggests normal RA pressure. Comparison There are no prior studies on this patient for comparison purposes. Chamber Sizes and Function Normal left ventricular size, normal wall thickness, normal globalsystolic function with an estimated EF of 65 - 70%. No resting regionalwall motion abnormality visualized. Left atrial size is normal. Rightventricular cavity size is normal, global systolic RV function is normal.RV measures slightly large in 4C view, but likely off axis. RV sizeappears normal in other views. The right atrium is normal. Right atrialvolume index is 15 ml/m . Right atrial area is 13 cm . The pulmonaryartery is not well visualized. The sinus of Valsalva is normal sized. Theascending aorta is normal sized. Valves, RV Pressures and Diastolic Function The aortic valve is normal in structure, no stenosis and no regurgitation.The mitral valve is normal in structure, trace mitral regurgitation.Normal diastolic function. The tricuspid valve is normal in structure andtrace tricuspid regurgitation. Unable to assess right ventricular systolicpressure. The pulmonic valve is not well visualized. No pulmonaryregurgitation. Masses, Effusion, Shunts There is no pericardial effusion. The inferior vena cava is normal sized,respiratory size variation greater than 50%. No left to right shunting wasdetected by limited color flow Doppler interrogation of the interatrialseptum. MEASUREMENTS AND CALCULATIONS 2-D Measurements and LV Function: LVID (d) 3.8 cm LV FS% (2D) 42% LVID (s) 2.2 cm LVOT diameter2.0 cm IVS (d) 0.9 cm HR 64bpm LVPW (d) 0.9 cm LA Vol index 17ml/m2 Ao Sinus 3.1 cm RA Vol index 15ml/m2 Ao Sinus ULN 3.7 cm * RA area 13cm Asc Ao 3.0 cm RV Basal Diam4.2 cm Asc Ao ULN 3.8 cm * RV Mid Diam2.4 cm LA 2.8 cm * Input BSA outside of range, reported values correspond to BSA = 1.9 Diastology: Mitral Tissue Doppler E Peak 1.0 m/s e', Septum 0.11 m/s A Peak 0.8 m/s e', Lateral 0.11 m/s E/A 1.2 E/e' Average 8.85 DT 207 msec Aortic Valve: Vmax 1.6 m/s NILA (V) 2.88 cm VTI 0.33 m NILA (I) 2.76 cm LVOT V max 1.5 m/s Max PG 10 mmHg LVOT VTI 0.29 m Mean PG 5 mmHg SV 92 ml Dim Index 0.87 SV index 48 ml/m CO 5.9 l/min CI 3.1 l/min/m Mitral Valve: MVA 3.7 cm MV P 1/2 60 msec Tricuspid Valve and estimated PA pressures: TAPSE 2.5 cm . This study was interpreted by an [facility] accredited facility. Final us Trenton Sharp PA-C ECHO ORD Final Result * SCAN-CARDIAC STRIP (08/22/2024 12:59 AM CDT) us Scanner OTHER Final Result * MR HEAD BRAIN WO (08/21/2024 8:57 PM CDT) Anatomical Region Laterality Modality BRAIN, HEAD Magnetic Resonan ce 08/22/2024 8:29 AM CDT Narrative 08/22/2024 8:29 AM CDT For Patients: As a result of the Cures Act, medical imaging exams and procedure reports are released immediately into your electronic medical record. You may view this report before your referring provider. If you have questions, please contact your health care provider. Indication: Seizure, new-onset, no history of trauma Syncope/presyncope, cerebrovascular cause suspected Seizure protocol. Episode of loss of consciousness, Seizure workup. Technique: Noncontrast sagittal T1, axial FLAIR, T2, diffusion weighted sequences are provided. Additional high-resolution coronal FLAIR, T2 and T1 weighted sequences are provided. Comparison: CT 08/21/2024 Findings: The ventricles, sulci and gyri are normal size, shape and contour for age. The midline structures are centrally located with no evidence of shift. There are no suspicious intra or extra-axial fluid collections. No region of restricted diffusion. The pituitary gland, optic chiasm, pineal gland, and cerebellar tonsils are unremarkable. No pathologic susceptibility artifacts. The hippocampal formations grossly bilaterally appear symmetric with no evidence of abnormal signal within the substance. Orr-white differentiation appears well maintained. Expected flow voids in the cavernous carotids and basilar artery. Moderate mucosal thickening in the left sphenoid sinus. Rightward deviation of the nasal septum. Impression: 1. No acute intracranial abnormality. 2. Unremarkable MRI of the brain parenchyma. 3. Unremarkable hippocampi. No mesial temporal sclerosis. 4. Moderate mucosal thickening in the left sphenoid sinus. Dictated by Larry Newton MD @ 08/22/2024 8:29:47 AM (Electronically Signed) Procedure Note Larry Newton MD - 08/22/2024 For Patients: As a result of the Cures Act, medical imagingexams and procedure reports are released immediately into your electronicmedical record. You may view this report before your referring provider.If you have questions, please contact your health care provider. Indication: Seizure, new-onset, no history of trauma Syncope/presyncope, cerebrovascular cause suspected Seizure protocol. Episode of loss of consciousness, Seizure workup. Technique: Noncontrast sagittal T1, axial FLAIR, T2, diffusion weighted sequences areprovided. Additional high-resolution coronal FLAIR, T2 and T1 weightedsequences are provided. Comparison: CT 08/21/2024 Findings: The ventricles, sulci and gyri are normal size, shape and contour for age.The midline structures are centrally located with no evidence of shift.There are no suspicious intra or extra-axial fluid collections. No regionof restricted diffusion. The pituitary gland, optic chiasm, pineal gland,and cerebellar tonsils are unremarkable. No pathologic susceptibilityartifacts. The hippocampal formations grossly bilaterally appear symmetricwith no evidence of abnormal signal within the substance. Orr-whitedifferentiation appears well maintained. Expected flow voids in thecavernous carotids and basilar artery. Moderate mucosal thickening in theleft sphenoid sinus. Rightward deviation of the nasal septum. Impression: 1. No acute intracranial abnormality. 2. Unremarkable MRI of the brain parenchyma. 3. Unremarkable hippocampi. No mesial temporal sclerosis. 4. Moderate mucosal thickening in the left sphenoid sinus. Dictated by Larry Newton MD @ 08/22/2024 8:29:47 AM (Electronically Signed) us Liliya Schroeder MD MR Final Res ult * SCAN-CARDIAC STRIP (08/21/2024 3:52 AM CDT) us Scanner OTHER Final Result * TROPONIN T (HS) ONE TIME (08/21/2024 1:11 AM CDT) TROPONIN T HS <6 6-10 ng/L ng/L 08/21/2024 1:41 AM CDT [facility] Scarecrow Visual Effects [facility] Blood BLOOD SPECIMEN / Unknown Non-Lab Venipuncture / Unknown 08/21/2024 1:11 AM CDT 08/21/2024 1:16 AM CDT us Km Jimenez MD CHEMISTRY Fin al Result [facility] [address] [place] [address], * VITAMIN D 25 (DEFICIENCY) (08/21/2024 1:11 AM CDT) VITAMIN D TOTAL 35.8 20.0 - 80.0 ng/mL 08/21/2024 4:38 PM CDT [facility] Blood BLOOD SPECIMEN / Unknown Non-Lab Venipuncture / Unknown 08/21/2024 1:11 AM CDT 08/21/2024 1:16 AM CDT Narrative [facility] - 08/21/2024 4:38 PM CDT Vitamin D Status Deficiency: <20 ng/mL Insufficiency: 20-29 ng/mL Sufficiency: 30-80 ng/mL Possible Toxicity: >80 ng/mL Based on [place] of Medicine recommendations Biotin supplements may cause clinically significant interference for this test assay. If interference is suspected, it is strongly recommended that biotin is discontinued for at least one week prior to retesting. Liliya Schroeder MD SEND OUTS Final Res ult Performing Organization Address City/State/[facility] Co de Phone Number [facility] [address] [place] [address], * TSH (08/21/2024 1:11 AM CDT) Pathologist [facility] TSH 4.15 0.27 - 4.20 uIU/mL 08/21/2024 4:10 PM CDT [facility] Blood BLOOD SPECIMEN / Unknown Non-Lab Venipuncture / Unknown 08/21/2024 1:11 AM CDT 08/21/2024 1:16 AM CDT Narrative [facility] - 08/21/2024 4:10 PM CDT In Adults, TSH values between 5.00 and 10.00 uIU/ml do not necessarily indicate the presence of Hypothyroidism. Correlation with clinical findings such as presence of goiter and/or Thyroperoxidase (TPO) Antibody may be helpful. For more information please refer to DEEPIKA 2004; 291: 228-238. Liliya Schroeder MD CHEMISTRY Final Res ult [facility] [address] [place] [address], * CTA HEAD NECK CAROTID STROKE PROTOCOL TABBY CANDIDAT (08/21/2024 12:43 AM CDT) Anatomical Region Laterality Modality BRAIN, NECK Computed Tomogra phy 08/21/2024 12:5 2 AM CDT Addenda Addendum by Beverly Oliver MD on 08/21/2024 9:17 AM CDT For Patients: As a result of the Cures Act, medical imaging exams and procedure reports are released immediately into your electronic medical record. You may view this report before your referring provider. If you have questions, please contact your health care provider. DATE: 08/21/2024 CLINICAL HISTORY: Patient with loss of consciousness. TECHNIQUE: Standard helical CT image acquisition through the intracranial circulation following intravenous administration of contrast material with bolus tracking. 2D and 3D MIP images for post-processing were performed and interpreted on an independent workstation and 3D images were permanently archived. COMPARISON: CT same day. FINDINGS: There is no cerebral aneurysm or large vessel occlusion. The right internal carotid artery is normal. The right middle cerebral artery and its branches are normal. The right anterior cerebral artery and its branches are normal. The left internal carotid artery is normal. The left middle cerebral artery and its branches are normal. The left anterior cerebral artery and its branches are normal. The anterior communicating artery is well visualized and appears normal. The right vertebral artery and PICA are normal. The left vertebral artery and PICA are normal. The vertebral arteries are codominant. The basilar artery is patent and appears normal. The right posterior cerebral artery is normal. The left posterior cerebral artery is normal. The visualized venous structures are patent. IMPRESSION: Patent proximal intracranial vasculature without intracranial aneurysms. Please note that all CT scans at this facility use dose modulation, iterative reconstruction, and/or weight-based dosing when appropriate to reduce radiation dose to as low as reasonably achievable. Dictated by Beverly Oliver MD @ 08/21/2024 9:17:23 AM (Electronically Signed) Impressions 08/21/2024 9:16 AM CDT Patent cervical vasculature. Please note that all CT scans at this facility use dose modulation, iterative reconstruction, and/or weight-based dosing when appropriate to reduce radiation dose to as low as reasonably achievable. Dictated by Beverly Oliver MD @ 08/21/2024 9:16:03 AM (Electronically Signed) Narrative 08/21/2024 9:16 AM CDT For Patients: As a result of the Cures Act, medical imaging exams and procedure reports are released immediately into your electronic medical record. You may view this report before your referring provider. If you have questions, please contact your health care provider. DATE: 08/21/2024 CLINICAL HISTORY: Patient with loss of consciousness. TECHNIQUE: Standard helical CT image acquisition of the neck up to the skull base after bolus intravenous contrast enhancement. 2D and 3D MIP images for post-processing were performed and interpreted on an independent workstation and 3D images were permanently archived. COMPARISON: CT same day. FINDINGS: The origins of the great vessels from the aortic arch are patent. The origin of the right vertebral artery is patent. The origin of the left vertebral artery is patent. The common carotid arteries are patent. There is no stenosis at the origin of the right internal carotid artery. There is no stenosis at the origin of the left internal carotid artery. The rest of the cervical segments of the internal carotid arteries are patent up to the skull base. The vertebral arteries are codominant. The cervical segments of the vertebral arteries are patent up to the skull base. The visualized lung apices are unremarkable. The thyroid gland is unremarkable. The soft tissues of the neck are unremarkable. There are degenerative changes in the cervical spine. Procedure Note Beverly Oliver MD - 08/21/2024 For Patients: As a result of the Cures Act, medical imagingexams and procedure reports are released immediately into your electronicmedical record. You may view this report before your referring provider.If you have questions, please contact your health care provider. DATE: 08/21/2024 CLINICAL HISTORY: Patient with loss of consciousness. TECHNIQUE: Standard helical CT image acquisition of the neck up to the skull baseafter bolus intravenous contrast enhancement. 2D and 3D MIP images forpost-processing were performed and interpreted on an independentworkstation and 3D images were permanently archived. COMPARISON: CT same day. FINDINGS: The origins of the great vessels from the aortic arch are patent. Theorigin of the right vertebral artery is patent. The origin of the leftvertebral artery is patent. The common carotid arteries are patent. There is no stenosis at the origin of the right internal carotid artery. There is no stenosis at the origin of the left internal carotid artery. The rest of the cervical segments of the internal carotid arteries arepatent up to the skull base. The vertebral arteries are codominant. The cervical segments of thevertebral arteries are patent up to the skull base. The visualized lung apices are unremarkable. The thyroid gland is unremarkable. The soft tissues of the neck are unremarkable. There are degenerative changes in the cervical spine. IMPRESSION: Patent cervical vasculature. Please note that all CT scans at this facility use dose modulation,iterative reconstruction, and/or weight-based dosing when appropriate toreduce radiation dose to as low as reasonably achievable. Dictated by Beverly Oliver MD @ 08/21/2024 9:16:03 AM (Electronically Signed) Km Jimenez MD CT Jimbo michael Result - Final * CTA CHEST ABDOMEN PELVIS AORTIC DISSECTION W (08/21/2024 12:43 AM CDT) Anatomical Region Laterality Modality CHEST, Abdomen, Pelvis, AORTA, THORAX, HEART Computed Tomography 08/21/2024 1:02 AM CDT Impressions 08/21/2024 1:02 AM CDT 1. No evidence of acute aortic syndrome. 2. No acute abnormality of the chest, abdomen, or pelvis. 3. Scattered sub 4 mm pulmonary nodules. Please see below for follow-up guidelines. 4. Other incidental findings as above. SOCIETY GUIDELINES - SOLID NODULES: SINGLE LOW RISK - nodule less than 6 mm: No routine follow-up. - nodule 6-8 mm: CT at 6-12 months, then consider CT at 18-24 months. - nodule greater than 8 mm: Consider CT at 3 months, PET/CT or tissue sampling. SINGLE HIGH RISK - nodule less than 6 mm: Optional CT at 12 months. - nodule 6-8 mm: CT at 6-12 months, then CT at 18-24 months. - nodule greater than 8 mm: Consider CT at 3 months, PET/CT or tissue sampling. MULTIPLE LOW RISK - nodule less than 6 mm: No routine follow-up. - nodule 6-8 mm: CT at 3-6 months, then consider CT at 18-24 months. - nodule greater than 8 mm: CT at 3-6 months, then consider CT at 18-24 months. MULTIPLE HIGH RISK - nodule less than 6 mm: Optional CT at 12 months. - nodule 6-8 mm: CT at 3-6 months, then at 18-24 months. - nodule greater than 8 mm: CT at 3-6 months, then at 18-24 months. Please note that all CT scans at this facility use dose modulation, iterative reconstruction, and/or weight-based dosing when appropriate to reduce radiation dose to as low as reasonably achievable. Dictated by Fidel Barahona MD @ 08/21/2024 1:02:12 AM (Electronically Signed) Narrative 08/21/2024 1:02 AM CDT For Patients: As a result of the Cures Act, medical imaging exams and procedure reports are released immediately into your electronic medical record. You may view this report before your referring provider. If you have questions, please contact your health care provider. INDICATION: Syncope, pain between shoulder blades. TECHNIQUE: CT chest without contrast, and CTA chest, abdomen and pelvis acquired with 90 cc Omnipaque 350 IV contrast, dissection protocol. 2D and 3D MIP images for post-processing were performed and interpreted on an independent workstation, and 3D images were permanently archived. COMPARISON: None. FINDINGS: CHEST: Cardiovascular structures: The unenhanced images demonstrate no evidence of aortic intramural thrombus. Thoracic aorta is normal in caliber without evidence of dissection. Heart size is normal. Pulmonary artery is normal in caliber. No sign of pulmonary embolism. Mediastinum and humberto: No mass or adenopathy. Calcified right hilar lymph nodes, likely sequela of healed granulomatous disease. Lungs and pleura: Mild dependent and bibasilar atelectasis. Otherwise no acute infiltrates. Scattered sub 4 mm pulmonary nodules, such as a 3 mm right lower lobe nodule (series 15, image 281) and 2 mm left lower lobe nodule (series 15, image 276). No pleural effusions or pneumothorax. Chest wall and axilla: No mass or adenopathy. Bones: Unremarkable for age. ABDOMEN AND PELVIS: Liver: Unremarkable. Gallbladder and bile ducts: Status post cholecystectomy. Spleen: Unremarkable. Adrenal glands: Unremarkable. Pancreas: Unremarkable. Kidneys: Unremarkable. GI tract: Few scattered colonic diverticula without evidence of diverticulitis. No evidence of obstruction. Normal appendix. Lymph nodes: Unremarkable. Vascular structures: Abdominal aorta is normal in caliber without evidence of dissection. Mesenteric arteries are patent. Miscellaneous: Small fat containing ventral wall hernia. Tiny fat containing umbilical hernia. Small fat containing inguinal hernias. No free air or significant free fluid. Pelvic Organs: Unremarkable. Bones: Unremarkable for age. Procedure Note Fidel Barahona MD - 08/21/2024 For Patients: As a result of the Cures Act, medical imagingexams and procedure reports are released immediately into your electronicmedical record. You may view this report before your referring provider.If you have questions, please contact your health care provider. INDICATION: Syncope, pain between shoulder blades. TECHNIQUE: CT chest without contrast, and CTA chest, abdomen and pelvis acquired with90 cc Omnipaque 350 IV contrast, dissection protocol. 2D and 3D MIP imagesfor post-processing were performed and interpreted on an independentworkstation, and 3D images were permanently archived. COMPARISON: None. FINDINGS: CHEST: Cardiovascular structures: The unenhanced images demonstrate no evidenceof aortic intramural thrombus. Thoracic aorta is normal in caliber withoutevidence of dissection. Heart size is normal. Pulmonary artery is normalin caliber. No sign of pulmonary embolism. Mediastinum and humberto: No mass or adenopathy. Calcified right hilar lymphnodes, likely sequela of healed granulomatous disease. Lungs and pleura: Mild dependent and bibasilar atelectasis. Otherwise noacute infiltrates. Scattered sub 4 mm pulmonary nodules, such as a 3 mmright lower lobe nodule (series 15, image 281) and 2 mm left lower lobenodule (series 15, image 276). No pleural effusions or pneumothorax. Chest wall and axilla: No mass or adenopathy. Bones: Unremarkable for age. ABDOMEN AND PELVIS: Liver: Unremarkable. Gallbladder and bile ducts: Status post cholecystectomy. Spleen: Unremarkable. Adrenal glands: Unremarkable. Pancreas: Unremarkable. Kidneys: Unremarkable. GI tract: Few scattered colonic diverticula without evidence ofdiverticulitis. No evidence of obstruction. Normal appendix. Lymph nodes: Unremarkable. Vascular structures: Abdominal aorta is normal in caliber without evidenceof dissection. Mesenteric arteries are patent. Miscellaneous: Small fat containing ventral wall hernia. Tiny fatcontaining umbilical hernia. Small fat containing inguinal hernias. Nofree air or significant free fluid. Pelvic Organs: Unremarkable. Bones: Unremarkable for age. IMPRESSION: 1. No evidence of acute aortic syndrome. 2. No acute abnormality of the chest, abdomen, or pelvis. 3. Scattered sub 4 mm pulmonary nodules. Please see below for follow- upguidelines. 4. Other incidental findings as above. SOCIETY GUIDELINES - SOLID NODULES: SINGLE LOW RISK - nodule less than 6 mm: No routine follow-up. - nodule 6-8 mm: CT at 6-12 months, then consider CT at 18-24 months. - nodule greater than 8 mm: Consider CT at 3 months, PET/CT or tissuesampling. SINGLE HIGH RISK - nodule less than 6 mm: Optional CT at 12 months. - nodule 6-8 mm: CT at 6-12 months, then CT at 18-24 months. - nodule greater than 8 mm: Consider CT at 3 months, PET/CT or tissuesampling. MULTIPLE LOW RISK - nodule less than 6 mm: No routine follow-up. - nodule 6-8 mm: CT at 3-6 months, then consider CT at 18-24 months. - nodule greater than 8 mm: CT at 3-6 months, then consider CT at 18-24months. MULTIPLE HIGH RISK - nodule less than 6 mm: Optional CT at 12 months. - nodule 6-8 mm: CT at 3-6 months, then at 18-24 months. - nodule greater than 8 mm: CT at 3-6 months, then at 18-24 months. Please note that all CT scans at this facility use dose modulation,iterative reconstruction, and/or weight-based dosing when appropriate toreduce radiation dose to as low as reasonably achievable. Dictated by Fidel Barahona MD @ 08/21/2024 1:02:12 AM (Electronically Signed) us Km Jimenez MD CT Fin al Result * CT HEAD BRAIN WO (08/21/2024 12:41 AM CDT) Anatomical Region Laterality Modality HEAD, BRAIN Computed Tomogra phy 08/21/2024 12:4 8 AM CDT Impressions 08/21/2024 12:48 AM CDT No acute intracranial abnormality. Please note that all CT scans at this facility use dose modulation, iterative reconstruction, and/or weight-based dosing when appropriate to reduce radiation dose to as low as reasonably achievable. Dictated by Fidel Barahona MD @ 08/21/2024 12:48:49 AM (Electronically Signed) Narrative 08/21/2024 12:48 AM CDT For Patients: As a result of the Cures Act, medical imaging exams and procedure reports are released immediately into your electronic medical record. You may view this report before your referring provider. If you have questions, please contact your health care provider. INDICATION: Syncope, loss of consciousness, possible seizure. TECHNIQUE: CT head without contrast. COMPARISON: None. FINDINGS: CSF spaces: Within normal limits for age. Brain parenchyma: The orr-white differentiation is maintained. No sign of mass, hemorrhage, or midline shift. Skull base and calvarium: Near-complete opacification of the left sphenoid sinus. Mastoid air cells are clear. The visualized orbits are grossly unremarkable. No skull fractures. Procedure Note Fidel Barahona MD - 08/21/2024 For Patients: As a result of the Cures Act, medical imagingexams and procedure reports are released immediately into your electronicmedical record. You may view this report before your referring provider.If you have questions, please contact your health care provider. INDICATION: Syncope, loss of consciousness, possible seizure. TECHNIQUE: CT head without contrast. COMPARISON: None. FINDINGS: CSF spaces: Within normal limits for age. Brain parenchyma: The orr-white differentiation is maintained. No sign ofmass, hemorrhage, or midline shift. Skull base and calvarium: Near-complete opacification of the left sphenoidsinus. Mastoid air cells are clear. The visualized orbits are grosslyunremarkable. No skull fractures. IMPRESSION: No acute intracranial abnormality. Please note that all CT scans at this facility use dose modulation,iterative reconstruction, and/or weight-based dosing when appropriate toreduce radiation dose to as low as reasonably achievable. Dictated by Fidel Barahona MD @ 08/21/2024 12:48:49 AM (Electronically Signed) Km Jimenez MD CT Fin al Result * EKG 12 LEAD (08/20/2024 11:26 PM CDT) Pathologist [facility] Interpretation Normal sinus rhythm Normal ECG BEYOND NOW Ventricular Rate 87 BPM BEYOND NOW Atrial Rate 87 BPM BEYOND NOW P-R Interval 166 ms BEYOND NOW QRS Duration 78 ms BEYOND NOW QT 362 ms BEYOND NOW QTc 435 ms BEYOND NOW P Francis 44 degrees BEYOND NOW R Francis 69 degrees BEYOND NOW T Francis 45 degrees BEYOND NOW 08/20/2024 11:2 6 PM CDT 08/22/2024 12:47 PM CDT Km Jimenez MD EKG ORD Fin al Result Performing Organization Address City/[facility] Co de Phone Number BEYOND NOW [place], [place] * EXTRA TUBE BLUE (08/20/2024 11:10 PM CDT) Blood BLOOD SPECIMEN / Unknown Non-Lab Venipuncture / Unknown 08/20/2024 11:10 PM CDT 08/20/2024 11:16 PM CDT Km Jimenez MD LABORATORY Fin al Result [facility] [address] [place] [address], * TROPONIN T (HS) ACUTE W/2HR REFLEX (08/20/2024 11:09 PM CDT) [facility] TROPONIN T HS 7 6-10 ng/L ng/L 08/20/2024 11:39 PM CDT [facility] Blood BLOOD SPECIMEN / Unknown IV Start / Unknown 08/20/2024 11:09 PM CDT 08/20/2024 11:16 PM CDT Narrative [facility] - 08/20/2024 11:39 PM CDT hs-cTnT (Elecsys Troponin T Gen 5) concentration (s) above the sex-specific 99th percentile (16 ng/L or greater for males or 11 ng/L or greater for females) are indicative of myocardial injury. If initial hs-cTnT <=100 ng/L at presentation, a 0h/2h ABSOLUTE (ng/L) delta change (rising or falling) of >=10 ng/L suggests a significant change, whereas a 0h/2h delta change <=3 ng/L suggests no significant change. If initial hs-cTnT >100 ng/L at presentation, a 0h/2h/ RELATIVE (percent, %) delta change of 20% is suggested to distinguish patients with acute vs. chronic myocardial injury. There are multiple etiologies that can cause hs-cTnT increases above the 99th percentile (myocardial injury) other than acute myocardial infarction. Clinical context and careful clinical evaluation are critical for diagnosis and risk-stratification. The diagnosis of acute myocardial infarction requires a rising and/or falling pattern in hs-cTnT concentrations with at least one value above the sex-specific 99th percentile PLUS at least one of the following clinical criteria: ischemic symptoms, new or presumed new significant ST-T wave changes or new LBBB, development of pathological Q waves, imaging evidence of new loss of viable myocardium or new regional wall motion abnormality, or identification of intracoronary atherothrombosis or an acute angiographic culprit on coronary angiography. In appropriate low-risk patients with a non-ischemic electrocardiogram without active chest pain with a symptom onset >3-hours without recurrence, a single initial hs-cTnT<6 ng/L identifies patient with a very low risk in emergency department patient population. Km Jimenez MD CHEMISTRY Fin al Result Performing Organization Address City/[facility]/ZIP Co de Phone Number [facility] [address] [place] [address], [place] * EXTRA TUBE LIGHT GREEN (08/20/2024 11:09 PM CDT) Blood BLOOD SPECIMEN / Unknown IV Start / Unknown 08/20/2024 11:09 PM CDT 08/20/2024 11:16 PM CDT us Km Jimenez MD LABORATORY Fin al Result Performing Organization Address City/[facility]/ZIP Co de Phone Number [facility] [address] [place] [address], [place] * EXTRA TUBE GOLD/SST (08/20/2024 11:09 PM CDT) Blood BLOOD SPECIMEN / Unknown IV Start / Unknown 08/20/2024 11:09 PM CDT 08/20/2024 11:16 PM CDT us Km Jimenez MD LABORATORY Fin al Result [facility] [address] [place] [address], [place] * CBC W PLT NO DIFF (08/20/2024 11:09 PM CDT) WHITE BLOOD COUNT 9.6 4.5 - 11.0 thou/cu mm 08/20/2024 11:26 PM CDT [facility] RED BLOOD COUNT 4.37 4.00 - 5.20 mil/cu mm 08/20/2024 11:26 PM CDT [facility] HEMOGLOBIN 13.5 12.0 - 16.0 g/dL 08/20/2024 11:26 PM CDT [facility] HEMATOCRIT 40.4 33.0 - 51.0 % 08/20/2024 11:26 PM CDT [facility] MCV 92 80 - 100 fL 08/20/2024 11:26 PM CDT [facility] MCH 30.9 26.0 - 34.0 pg 08/20/2024 11:26 PM CDT [facility] MCHC 33.4 32.0 - 36.0 g/dL 08/20/2024 11:26 PM CDT [facility] RDW 12.0 11.5 - 15.5 % 08/20/2024 11:26 PM CDT [facility] PLATELET COUNT 340 140 - 440 thou/cu mm 08/20/2024 11:26 PM CDT [facility] MPV 8.9 6.5 - 11.0 fL 08/20/2024 11:26 PM CDT [facility] NRBC 0.0 % 08/20/2024 11:26 PM CDT [facility] ABS NRBC 0.0 thou /cu mm 08/20/2024 11:26 PM CDT [facility] Blood BLOOD SPECIMEN / Unknown IV Start / Unknown 08/20/2024 11:09 PM CDT 08/20/2024 11:16 PM CDT Km Jimenez MD HEMATOLOGY Fin al Result Performing Organization Address City/[facility]/ZIP Co de Phone Number [facility] [address] [address], [place] * ETHANOL SERUM OR PLASMA (08/20/2024 11:09 PM CDT) ETHANOL <0.010 <0.010 g/dL 08/20/2024 11:39 PM CDT [facility] Blood BLOOD SPECIMEN / Unknown IV Start / Unknown 08/20/2024 11:09 PM CDT 08/20/2024 11:16 PM CDT Km Jimenez MD CHEMISTRY Fin al Result Performing Organization Address [facility] Co de Phone Number [facility] [address] [place] [address], [place] * MAGNESIUM (08/20/2024 11:09 PM CDT) MAGNESIUM 2.2 1.6 - 2.6 mg/dL 08/20/2024 11:39 PM CDT [facility] Blood BLOOD SPECIMEN / Unknown IV Start / Unknown 08/20/2024 11:09 PM CDT 08/20/2024 11:16 PM CDT Km Jimenez MD CHEMISTRY Fin al Result Performing Organization Address City/[facility]/ZIP Co de Phone Number [facility] [address] [place] [address], [place] * (ABNORMAL) BASIC METABOLIC PANEL (08/20/2024 11:09 PM CDT) SODIUM 139 136 - 145 mmol/L 08/20/2024 11:40 PM CDT [facility] POTASSIUM 4.0 3.5 - 5.1 mmol/L 08/20/2024 11:40 PM CDT [facility] CHLORIDE 102 98 - 107 mmol/L 08/20/2024 11:40 PM CDT [facility] CO2,TOTAL 27 22 - 29 mmol/L 08/20/2024 11:40 PM CDT [facility] ANION GAP 10 5 - 18 08/20/2024 11:40 PM CDT [facility] GLUCOSE 100(H) 70 - 99 mg/dL 08/20/2024 11:40 PM CDT [facility] CALCIUM 9.5 8.8 - 10.4 mg/dL 08/20/2024 11:40 PM T [facility] Comment: Reference ranges for this test were updated on 04/13/2024 to reflect our healthy population more accurately. Reference range changes are not retroactively applied to results, but previous results using the same methodology can be interpreted in the context of the new reference range. BUN 17 6 - 20 mg/dL 08/20/2024 11:40 PM T [facility] CREATININE 0.83 0.50 - 0.90 mg/dL 08/20/2024 11:40 PM T [facility] BUN/CREAT RATIO 20 10 - 20 11:40 PM T [facility] eGFR 83(L) >90 mL/min/1. 73m2 08/20/2024 11:40 PM T [facility] Comment:As of 2021, eG FR is calculated by the CKD-EPI creatinine equation without race adjustment. eGFR can be influenced by muscle mass, exercise, and diet. The reported eGFR is an estimation only and is only applicable if the renal function is stable. Blood BLOOD SPECIMEN / Unknown IV Start / Unknown 08/20/2024 11:09 PM CDT 08/20/2024 11:16 PM CDT us Km Jimenez MD CHEMISTRY Fin al Result [facility] 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 PAINTER) Case Report Gynecologic Cytology Report Case: [id number] Authorizing Provider: Nely Holt Collected: 08/10/2018 1200 MMD Ordering Location: [facility] Received: 08/12/2018 1359 First Screen: Damaris Rosales Specimen: POLICE JUSTICE ThinPrep Vial Screening, Cervical/Vaginal 08/17/2018 11:40 AM CDT [facility] INTERPRETATION/ RESULT NEGATIVE FOR INTRAEPITHELIAL LESION OR MALIGNANCY (NIL) (none) 08/17/2018 11:40 AM CDT [facility] at 1140 CDT SPECIMEN ADEQUACY Satisfactory for evaluation No endocervical component seen 08/17/2018 11:40 AM CDT [facility] HPV REQUEST HPV and PAP 08/17/2018 11:40 AM CDT [facility] Last Pap Result First Pap/Unknown 11:40 AM CDT [facility] Automated Review Successful 08/17/2018 11:40 AM CDT [facility] Comment:Specimen processed s uccessfully by automated rn nicu device, ThinPrep Imaging System, [employer] ANCILLARY TESTING POLICE JUSTICE HPV Ordered, Please see separate report 08/17/2018 11:40 AM CDT [facility] Note The pap test is a screening technique, not a diagnostic procedure. It is used primarily to screen for squamous cancers and precursor lesions. Published studies have shown that it is subject to both false negative and false positive results. The pap test should not be used as the sole means to diagnose or exclude pre-malignant and malignant lesions. Cytology is screened and interpreted at [facility] - [address], [place] [address] and [facility] - [address] [place] [address]; [place] [address] and [facility] - [address]; [place] [address] and [facility] [address]; [place] [address] 08/17/2018 11:40 AM CDT [facility] Other (Cervical/Vagina l) 08/10/2018 12:00 PM TUMBLING BARREL PAINTER 08/12/2018 1:59 PM TUMBLING BARREL PAINTER us Nely Holt MD PATHOLOGY/CYTOLOGY Final Result [facility] [address] [place] [address], [place] * XR MAMMO BILAT SCREEN FFDM (06/18/2011 12:08 PM TUMBLING BARREL PAINTER) Anatomical Region Laterality Modality BREASTS, Breast Left, Breast Right Bilateral Mammography Impressions 06/18/2011 1:16 PM TUMBLING BARREL PAINTER There is no radiographic evidence for malignancy. Recommend annual mammograms. A lay language report of this examination will be provided to the patient. MAMMOGRAM ASSESSMENT: ACR 1 Negative Narrative 06/18/2011 1:16 PM TUMBLING BARREL PAINTER XR MAMMO BILAT SCREEN FFDM [G0202.0] CLINICAL HISTORY: This is an asymptomatic 40 y.o. patient. INDICATION FOR EXAM: Mammogram Screening. TECHNIQUE: CC & MLO views were obtained. This digital study was evaluated with the assistance of Computer-Aided Detection. COMPARISON FILM: Yes 06/09/07 [facility] FINDINGS: Mammographically, the breast tissue is heterogeneously dense, which could obscure detection of small masses (approximately 51% - 75% glandular). There are no dominant masses, suspicious micro calcifications or areas of architectural distortion. Procedure Note Mu Casas MD - 06/18/2011 XR MAMMO BILAT SCREEN FFDM [G0202.0] CLINICAL HISTORY: This is an asymptomatic 40 y.o. patient. INDICATION FOR EXAM: Mammogram Screening. TECHNIQUE: CC & MLO views were obtained. This digital study was evaluatedwith the assistance of Computer-Aided Detection. COMPARISON FILM: Yes 06/09/07 [facility] FINDINGS: Mammographically, the breast tissue is heterogeneously dense,which could obscure detection of small masses (approximately 51% - 75%glandular). There are no dominant masses, suspicious micro calcificationsor areas of architectural distortion. IMPRESSION: There is no radiographic evidence for malignancy. Recommendannual mammograms. A lay language report of this examination will be provided to the patient. MAMMOGRAM ASSESSMENT: ACR 1 Negative us Radha Grimm MD MAMMO Final Res ult from Last 3 Months or Most Recently Relevant to Health Maintenance Insurance [place] Advance Directives * Full Code (Latest Code Status on File) Date Activated Date Inactivated Comments 08/21/2024 3:12 AM 08/22/2024 4:30 PM Question Answer Comments Code Status Discussion: Reviewed Preferences Care Teams Betting Clerk Relationship Specialty Start Date End Date Pcp, No . PCP - General 08/20/24 Radha Grimm MD . Internal Medicine 08/20/24
== END 2024-10-24 09:38 | disposition home or self-care (01) ==
PROVIDERS: Emergency Provider Emergency Medicine; PCP Physician Assistant Medical
DX: K56.41 Fecal impaction (principal)
CPT/HCPCS: 99282; 99283; 99284

== ENCOUNTER 2024-11-08 07:58 | Outpatient (CLI) | payer BC, SELFPAY ==
--- NOTE | 2024-11-08 08:15 | CRLHL7_ITS ---
For Patients: As a result of the Century Cures Act, medical imaging exams and procedure reports are released immediately into your electronic medical record. You may view this report before your referring provider. If you have questions, please contact your health care provider. INDICATION: BILATERAL SCREENING MAMMOGRAM, ASYMPTOMATIC 54 Y/O FEMALE COMPARISON: 11/07/2023, 11/05/2022, 10/30/2021 TECHNIQUE: Digital mammogram in CC and MLO projections including computer-aided detection (CAD) and tomosynthesis. BREAST COMPOSITION: The breasts are heterogeneously dense, which may obscure small masses. FINDINGS: No suspicious findings. ASSESSMENT: BI-RADS 1 Negative RECOMMENDATION: Annual screening mammogram. A lay language report of this examination will be provided to the patient. Dictated by: Lrary Clayton MD @ 11/15/2024 13:22:27 (Electronically Signed)
== END 2024-11-08 07:59 | disposition home or self-care (01) ==
LOC: MAMMO 07:59
PROVIDERS: PCP Physician Assistant Medical; Visit Provider Physician Assistant Medical
DX: Z12.31 Encounter for screening mammogram for malignant neoplasm of breast (principal); R92.333 Mammographic heterogeneous density, bilateral breasts
CPT/HCPCS: 77063; 77067